=== PATIENT | female | born 1940 | race Caucasian/White ===

== ENCOUNTER 2019-03-22 16:09 | Emergency (ER) | payer MEDICARE, SELFPAY ==
--- NOTE | ~2019-03-22 | XR_ITS ---
EXAMINATION: XR chest 2V DATE: 03/22/2019 18:12 INDICATION: Chest pain and pressure TECHNIQUE: PA and lateral views of the chest are obtained. COMPARISON: 03/02/2018 FINDINGS: The lungs are free of acute opacities. There is no pleural effusion or pneumothorax. The ca rdiomediastinal silhouette is normal. There is severe thoracic spondylosis. IMPRESSION: 1. No acute cardiopulmonary abnormality. Reviewed, dictated and finalized at location A. ING OPERATOR
[2019-03-22 17:27] VITALS: BP 136/96; PULSE 70; RESP 16; TEMP 37.1; O2SAT 98
--- NOTE | 2019-03-22 17:30 | ECG_ITS ---
Measurements Intervals [place] Rate: 65 P: 47 UT: 147 QRS: -32 QRSD: 101 T: 46 QT: 397 QTc: 414 Interpretive Statements SINUS RHYTHM LEFT AXIS DEVIATION INCOMPLETE RIGHT BUNDLE BRANCH BLOCK BORDERLINE R WAVE PROGRESSION, ANTERIOR LEADS BASELINE ARTIFACT- I, II, AVR, AVL, AVF, V1-V3 BORDERLINE ECG Electronically Signed On 03-22-2019 20:06:58 EDITOR SOUND by Aubrey Rueda D.O.
[2019-03-22 17:39] LABS: Basophils Absolute Auto 0.1 K/mm3 (0.0-0.1); Basophils Percent Auto 0.9 % (0.2-1.2); Eosinophils Absolute Auto 0.1 K/mm3 (0-0.3); Eosinophils Percent Auto 2.4 % (0-4.4); Hematocrit 37.8 % (37.0-47.0); Hemoglobin 12.4 g/dL (12.0-15.0); Immature Granulocyte Absolute 0.02 K/mm3 (0.00-0.031); Immature Granulocyte Percent A 0.4 % (0-0.5); Lymphocytes Absolute Auto 1.61 K/mm3 (0.9-3.2); Lymphocytes Percent Auto 29.3 % (18.3-44.2); Mean Corpuscular HGB Conc 32.8 g/dl (32-36); Mean Corpuscular Hemoglobin 30.4 pg (26-34); Mean Corpuscular Volume 92.6 fl (80-100); Mean Platelet Volume 9.8 fl (7.4-10.4); Monocytes Absolute Auto 0.6 K/mm3 (0.1-0.6); Neutrophils Absolute Auto 3.1 K/mm3 (1.3-6.7); Platelet Count Result 249 k/mm3 (150-375); Red Blood Count 4.08 M/mm3 (4.2-5.4); Red Cell Distribution Width 12.5 % (11.5-14.5); White Blood Count 5.5 K/mm3 (4.5-10.0)
[2019-03-22 17:49] LABS: INR 0.9
[2019-03-22 17:52] LABS: Blood Urea Nitrogen 19 mg/dL (7-17); Calcium 9.2 mg/dL (8.4-10.2); Carbon Dioxide 30 mmol/L (22-30); Chloride 101 mmol/L (98-107); Estimated CRCL calculation 51 ml/min; Estimated Glomerular Filt Rate > 60; Glucose 88 mg/dL (65-105); Sodium 139 mmol/L (137-145)
[2019-03-22 18:04] LABS: Troponin I < 0.012 ng/mL (0.000-0.034)
[2019-03-22 20:00] VITALS: BP 157/70; PULSE 65; RESP 18; O2SAT 97
--- NOTE | 2019-03-22 20:33 | ED.CHESTPAIN ---
HPI - Chest Pain General Chief Complaint: Chest Pain Stated Complaint: sent from urgent care, chest discomfort Time Seen by Provider: 03/22/19 20:33 Source: patient Mode of arrival: ambulatory Limitations: no limitations History of Present Illness HPI narrative: The pt is a 78 y/o female who presents to the ED c/o intermittent diffuse chest discomfort onset one week ago. Pt states that the discomfort feels like a pressure that radiates to the back. Pt visited urgent care, and was recommended here. Pt reports intermittent SOB, but denies N/V and diaphoresis. She states that her discomfort is resolved currently. Pt states that the pain does not seem to worsen or improve with anything. The pt notes that she cannot recall receiving a cardiology work up. Pt states that her PCP is Dr. Lyndsey ARRINGTON complaint: chest discomfort Onset (ago): week(s) (1) Timing of current episode: episodic and now resolved Pain location: other (Diffuse) Pain radiation: back Quality: other (Pressure) Relieving factors: nothing Exacerbating factors: nothing Associated symptoms: dyspnea (Intermittent) Related Data Allergies Allergy/AdvReac Type Severity Reaction Status Date / Time No Known Allergies Allergy Verified 06/16/18 09:30 Review of Systems Review of Systems: All systems reviewed & are unremarkable except as noted in HPI and below Constitutional: Constitutional: Denies excessive sweating Cardiovascular: Cardiovascular: Reports other (Chest discomfort, intermittent, pressure, radiates to back, now resolved.) Respiratory: Respiratory: Reports dyspnea (Intermittent) Gastrointestinal: Gastrointestinal: Denies nausea and Denies vomiting PMFSH Past Medical History Medical History (Updated 03/22/19 @ 21:01 by John Garay MD) Abnormal uterine bleeding Bilateral cataracts Chronic shortness of breath Claustrophobia Depression GERD (gastroesophageal reflux disease) UTI (urinary tract infection) Surgical History Surgical History (Updated 03/22/19 @ 20:48 by Preston Byrne) H/O bilateral cataract extraction H/O tubal ligation History of appendectomy Family History Family History (Updated 02/14/18 @ 10:59 by DOCTOR UNKNOWN) Mother Family history of Alzheimer's disease Father Family history of coronary artery disease Social History Social History (Updated 03/22/19 @ 20:48 by Preston Byrne) Smoking status: Former smoker Alcohol intake: current Comments PCP: Dr. Solorio Exam Narrative: Exam Narrative: GENERAL: Well-appearing, well-nourished, and in no acute distress. HEAD: Normocephalic, atraumatic. EYES: PERRLA and EOMI. ENT: Nares clear, no rhinorrhea or epistaxis. Mucous membranes moist. NECK: Supple. CHEST: Clear to auscultation. No respiratory distress. HEART: Regular rate and rhythm. No murmur heard. Normal peripheral pulses. ABDOMEN: Soft, nontender, nondistended, normal active bowel sounds. EXTREMITIES: Normal range of motion. No edema. SKIN: Warm, dry, no rash. NEURO: No focal deficits. Alert and oriented x3. PSYCH: Normal mood and affect. Course Course Emergency Course: Patient remains asymptomatic in the ER. However I discussed labs and chest x-ray EKG findings with the patient as well as with Dr. Solorio. Patient can be discharged home follow-up in the office for outpatient stress test. Patient does feel comfortable going home. Consultations Consultation #1: Discussed case with Dr. Solorio, who states pt can be discharged and follow up to schedule an outpatient stress test. Date: 03/22/19 Time: 20:53 Vital Signs Vital signs: Vital Signs Temperature 37.1 C 03/22/19 17:27 Pulse Rate 70 03/22/19 17:27 Respiratory Rate 16 03/22/19 17:27 Blood Pressure 136/96 H 03/22/19 17:27 Pulse Oximetry 98 03/22/19 17:27 Temperature 37.1 C 03/22/19 17:27 Pulse Rate 65 03/22/19 20:00 Respiratory Rate 18 03/22/19 20:00 Blood Pressure 157/70 H 03/22/19 20:00 Pulse Oxi
[2019-03-22 20:48] LABS: Troponin I < 0.012 ng/mL (0.000-0.034)
[2019-03-22 21:17] VITALS: BP 128/72; PULSE 66; RESP 19; TEMP 36.5; O2SAT 99
== END 2019-03-22 21:20 | disposition home or self-care (01) ==
PROVIDERS: Emergency Medicine; Emergency Provider Family Medicine; PCP Internal Medicine
DX: R07.89 Other chest pain (principal); K21.9 Gastro-esophageal reflux disease without esophagitis; Z87.440 Personal history of urinary (tract) infections; Z98.42 Cataract extraction status, left eye; Z98.41 Cataract extraction status, right eye; I45.10 Unspecified right bundle-branch block; R94.31 Abnormal electrocardiogram [ECG] [EKG]; Z87.891 Personal history of nicotine dependence
CPT/HCPCS: 36415; 71046; 80048; 84484; 85025; 85610; 85730; 93005; 99284

== ENCOUNTER 2019-04-04 10:14 | Outpatient (CLI) | payer MEDICARE, SELFPAY ==
--- NOTE | 2019-04-04 10:52 | EST_ITS ---
Patient Info Name: Deirdre Caruso Age: 78 years : 1940 Gender: Female Ht: 62 in Wt: 150 lbs BSA: 1.74 m2 HR: 65 bpm BP: 132 / 76 mmHg Technical Quality: Good Exam Date: 04/04/2019 11:28 AM Exam Location: [facility] Patient Status: Outpatient Admit Date: 04/04/2019 Staff Ordering Physician: Belkys Galvan NP Quality Compliance Manager: Seema Amaya RDCS Attending Provider: Belkys Galvan NP Referring Physician: Cole HENLEY; Exercise Technologist: Christiana Man RDCS Exercise Physician: Aubrey Rueda DO Exam Type: CA stress echo Study Info Indications R07.89 - Other chest pain Treadmill exercise stress echocardiogram is performed. Summary 1. 1. Negative Jamison exercise stress test for ischemic ST changes by ECG criteria. 2. 2. Good functional capacity, achieving 10 METs of workload. 3. 3. Appropriate HR response to exercise. 4. 4. Appropriate HR recovery at 1 minute post exercise. 5. 5. Negative stress echocardiogram for ischemia by wall motion analysis. 6. 6. Patient informed of the above results. Stress Echo Findings Left Ventricle Appropriate increase in LV endocardial thickening with systole. Appropriate augmentation of contractility with systole. No wall motion abnormality. Left Ventricle Normal LV systolic function, no wall motion abnormality. Protocol: Jamison Stress ECG Details Stage: REST Duration (min): 0 min : 50 sec Speed (mph): 0.0 Grade (%): 0 HR (bpm): 66 SBP (mmHg): 132 DBP (mmHg): 76 METS: --- Stage: REST Duration (min): 22 min : 44 sec Speed (mph): 0.0 Grade (%): 0 HR (bpm): 69 SBP (mmHg): 132 DBP (mmHg): 76 METS: --- Stage: STAGE 1 Duration (min): 1 min : 0 sec Speed (mph): 1.7 Grade (%): 10 HR (bpm): 99 SBP (mmHg): 132 DBP (mmHg): 76 METS: --- Stage: STAGE 1 Duration (min): 2 min : 0 sec Speed (mph): 1.7 Grade (%): 10 HR (bpm): 96 SBP (mmHg): 132 DBP (mmHg): 76 METS: --- Stage: STAGE 1 Duration (min): 3 min : 0 sec Speed (mph): 1.7 Grade (%): 10 HR (bpm): 99 SBP (mmHg): 142 DBP (mmHg): 57 METS: --- Stage: STAGE 2 Duration (min): 1 min : 0 sec Speed (mph): 2.5 Grade (%): 12 HR (bpm): 103 SBP (mmHg): 142 DBP (mmHg): 57 METS: --- Stage: STAGE 2 Duration (min): 2 min : 0 sec Speed (mph): 2.5 Grade (%): 12 HR (bpm): 106 SBP (mmHg): 147 DBP (mmHg): 61 METS: --- Stage: STAGE 2 Duration (min): 3 min : 0 sec Speed (mph): 2.5 Grade (%): 12 HR (bpm): 104 SBP (mmHg): 147 DBP (mmHg): 61 METS: --- Stage: STAGE 3 Duration (min): 1 min : 0 sec Speed (mph): 3.4 Grade (%): 14 HR (bpm): 114 SBP (mmHg): 145 DBP (mmHg): 65 METS: --- Stage: STAGE 3 Duration (min): 2 min : 0 sec Speed (mph): 3.4 Grade (%): 14 HR (bpm): 119 SBP (mmHg): 145 DBP (mmHg): 65 METS: --- Stage: STAGE 3 Duration
== END 2019-04-04 10:15 | disposition home or self-care (01) ==
PROVIDERS: PCP Internal Medicine; Visit Provider Nurse Practitioner
DX: R07.9 Chest pain, unspecified (principal)
CPT/HCPCS: 93351

== ENCOUNTER → 2021-05-16 17:59 | Outpatient (CLI) | payer MEDICARE, SELFPAY ==
--- NOTE | ~2021-05-16 | DEXA_ITS ---
Bone Density Report Name: FABRICE HOYT Age: 80 Sex: Female Ethnicity: White Date of : 1940 Indication: postmenopausal; screening for osteoporosis; height loss; Referring Provider: Belkys Galvan Study: Bone densitometry was performed. Exam Date: May 16, 2021 Accession number: [id number] Bone Density: Region BMD T-score Z-score Classification AP Spine (L1, L2) 1.098 1.1 3.6 Normal Femoral Neck (Left) 0.991 1.3 3.6 Normal Total Hip (Left) 1.256 2.6 4.7 Normal Femoral Neck (Right) 1.000 1.4 3.7 Normal Total Hip (Right) 1.248 2.5 4.6 Normal Total Hip Mean 1.252 2.6 4.7 Normal World Health Organization criteria for BMD impression classify patients as: Normal (T-score at or above -1.0), Osteopenia (T-score between -1.0 and -2.5), or Osteoporosis (T-score at or below -2.5). 10-year Fracture Risk: FRAX not reported because: All T-scores for Spine Total, Hip Total, Femoral Neck at or above -1.0 Previous Exams: Region Exam Age BMD T-score BMD Change BMD Change Date g/cm2 vs Baseline vs Previous AP Spine(L1, L2) 05/16/2021 80 1.098 1.1 -0.064* -0.100* 02/06/2015 74 1.198 2.0 0.036* -0.054* 04/29/2011 70 1.252 2.5 0.090* 0.049* 03/28/2008 67 1.203 2.0 0.041* 0.041* 01/15/2005 64 1.162 1.7 Total Hip(Left) 05/16/2021 80 1.256 2.6 -0.094* -0.011 02/06/2015 74 1.267 2.7 -0.084* 0.020 04/29/2011 70 1.246 2.5 -0.104* -0.006 03/28/2008 67 1.253 2.5 -0.098* -0.098* 01/15/2005 64 1.350 3.3 Total Hip(Right) 05/16/2021 80 1.248 2.5 -0.086* 0.029* 02/06/2015 74 1.219 2.3 -0.115* -0.040* 04/29/2011 70 1.259 2.6 -0.075* 0.015 03/28/2008 67 1.244 2.5 -0.090* -0.090* 01/15/2005 64 1.334 3.2 *Denotes significance at 95% confidence level, LSC for AP Spine = 0.022 g/cm2, LSC for Total Hip = 0.027 g/cm2 Clinical Information Provided by Patient: Has used the following medications: Vitamin D, Calcium Patient maximum height was 64 Menopause Age: 45 Drinks caffeinated beverages Onset of menses at age 9 Number of children 2 Impression: The patient has normal bone mass. The BMD for the AP Spine(L1, L2) decreased, changing by -0.100 since the last DXA exam. Di
== END ==
PROVIDERS: Visit Provider Nurse Practitioner
DX: Z78.0 Asymptomatic menopausal state (principal)
CPT/HCPCS: 77080

== ENCOUNTER 2021-05-30 13:07 | Emergency (ER) | payer MEDICARE, SELFPAY ==
[2021-05-30] VITALS (10 sets, daily range): BP systolic 127–173; BP diastolic 79–101; PULSE 58–79; RESP 13–18; TEMP 37; O2SAT 96–100
[2021-05-30 14:44] LABS: Hematocrit 36.6 % (37.0-47.0); Mean Corpuscular HGB Conc 32.8 g/dl (32-36); Mean Corpuscular Hemoglobin 30.2 pg (26-34); Mean Corpuscular Volume 92.2 fl (80-100); Mean Platelet Volume 9.8 fl (7.4-10.4); Platelet Count Result 201 k/mm3 (150-375); Red Blood Count 3.97 M/mm3 (4.2-5.4); Red Cell Distribution Width 12.8 % (11.5-14.5)
[2021-05-30] MEDS: SODIUM CHLORIDE 0.9% IV 1,000 ML 999 ML IV CONT (14:52)
[2021-05-30 14:54] LABS: Anion Gap 6 mmol/L (8-16); Blood Urea Nitrogen 17 mg/dL (7-17); Calcium 8.8 mg/dL (8.4-10.2); Carbon Dioxide 27 mmol/L (22-30); Chloride 105 mmol/L (98-107); Estimated CRCL calculation 44 ml/min; Estimated Glomerular Filt Rate > 60; Glucose 84 mg/dL (65-110); Potassium 3.5 mmol/L (3.4-5.0); Sodium 138 mmol/L (137-145)
[2021-05-30 14:56] LABS: INR 1.1; Prothrombin Time 13.6 Seconds (11.1-14.7)
[2021-05-30 14:57] LABS: Partial Thromboplastin Time 28.5 SECONDS (22.3-36.8)
[2021-05-30 15:15] LABS: Add Urine Microscopic? YES; Appearance Urine Cloudy (Clear); Bacteria Urine Trace /hpf; Bilirubin Urine Negative (Negative); Color Urine Amber (Yellow); Glucose Urine UA Negative (Negative); Ketones Urine Trace mg/dL (Negative); Leukocyte Esterase Ur 3+ LEU/UL (Negative); Mucus Urine Rare /lpf; Nitrate Urine Negative (Negative); Protein Urine 1+ mg/dL (Negative); Squamous Epithelial Cell Urine Occasional /hpf (Few); Urobilinogen Urine Negative mg/dL (<2.0); WBC Clumps Urine Present /HPF; WBC Urine >75 /hpf
[2021-05-30 15:16] LABS: Blood Urine Negative (Negative)
--- NOTE | 2021-05-30 16:50 | ED.DIZZY ---
HPI - Dizziness General Chief Complaint: Dizziness Stated Complaint: dizzy, weak, syncopal episode Time Seen by Provider: 05/30/21 14:06 History of Present Illness HPI Narrative: Patient is an 80-year-old female who presents to the ER with concerns for weakness. Patient was sent from her PCPs office. Patient came in after she told her daughter that 1 week ago she had gotten out of bed and gotten very dizzy when going from sitting to standing. Things blacked out and she fell to the ground. She remembers hitting the ground and did not hit her head. No loss of consciousness. She tried to get up again and became recurrently lightheaded and stayed on the ground. She was then diagnosed with a UTI and started Macrobid. She has finished the medication. No fevers or chills or sweats. No urinary frequency urgency or dysuria. She reports chronic diarrhea for 6 months. She thinks 1 week ago she also had some blood in her stool but that is since improved. No abdominal pain. Related Data Home Medications Medication Instructions Recorded Confirmed ascorbate calcium (vitamin C) 500 500 mg PO DAILY 11/17/19 04/25/21 mg tablet cholecalciferol (vitamin D3) 25 25 mcg PO DAILY 11/17/19 04/25/21 mcg (1,000 unit) capsule mecobalamin (vitamin B12) 1,000 1,000 mcg PO DAILY 11/17/19 04/25/21 mcg chewable tablet donepezil 10 mg tablet 10 mg PO QHS 10/02/20 04/25/21 Allergies Allergy/AdvReac Type Severity Reaction Status Date / Time No Known Allergies Allergy Verified 05/30/21 14:54 Review of Systems Review of Systems: All systems reviewed & are unremarkable except as noted in HPI and below Constitutional: Constitutional: Denies chills, Denies fever(s) and Denies weakness ENT: Denies nasal congestion and Denies sore throat Cardiovascular: Cardiovascular: Denies chest pain, Denies rapid heart rate and Denies radiating jaw, neck or arm pain Respiratory: Respiratory: Denies cough and Denies dyspnea Gastrointestinal: Gastrointestinal: Denies abdominal pain, Reports diarrhea, Denies nausea and Denies vomiting Genitourinary: Genitourinary: Denies nocturia and Denies dysuria Neurologic: Reports syncope (Near syncope), Denies headache(s) and Denies numbness PMFSH Past Medical History Medical History Abnormal uterine bleeding Bilateral cataracts Chronic shortness of breath Claustrophobia Colon adenoma Depression Elevated blood pressure reading GERD (gastroesophageal reflux disease) Memory deficit Proteinuria Tuberculosis UTI (urinary tract infection) Surgical History Surgical History H/O bilateral cataract extraction H/O tubal ligation History of appendectomy Family History Family History Mother Family history of Alzheimer's disease Father Family history of coronary artery disease Social History Social History Smoking status: Never smoker Alcohol intake: current Drinks per week: 7 Alcohol use details: 1 glass of wine every night Exam Narrative: GENERAL: Well-appearing, well-nourished, and in no acute distress. HEAD: Normocephalic, atraumatic. EYES: PERRL and EOMI. CHEST: Clear to auscultation. No respiratory distress. HEART: Regular rate and rhythm. Normal peripheral pulses. ABDOMEN: Soft, nontender, nondistended. EXTREMITIES: Normal range of motion. No edema. SKIN: Warm, dry, no rash. NEURO: Alert and oriented x3. PSYCH: Normal mood and affect. Course Course Emergency Course: Patient family informed of results. Hydrated for orthostasis. IV ceftriaxone ordered as well. Vital Signs Vital signs: Vital Signs Temperature 98.6 F 05/30/21 13:11 Pulse Rate 69 05/30/21 13:11 Respiratory Rate 16 05/30/21 13:11 Blood Pressure 128/101 H 05/30/21 13:11 Pulse Oxim
== END 2021-05-30 17:09 | disposition home or self-care (01) ==
PROVIDERS: Emergency Provider Emergency Medicine; PCP Internal Medicine
DX: N39.0 Urinary tract infection, site not specified (principal); E86.0 Dehydration; K21.9 Gastro-esophageal reflux disease without esophagitis; F32.A Depression, unspecified; Z98.42 Cataract extraction status, left eye; Z98.41 Cataract extraction status, right eye; R55 Syncope and collapse
CPT/HCPCS: 36415; 80048; 81001; 85025; 85610; 85730; 87077; 87086; 87088; 87186; 96361; 96374; 99284; J0696; J7030

== ENCOUNTER 2021-07-22 10:56 | Outpatient (CLI) | payer MEDICARE, SELFPAY ==
[2021-07-22 11:26] LABS: Hematocrit 40.7 % (37.0-47.0); Hemoglobin 14.1 g/dL (12.0-15.0); Mean Corpuscular HGB Conc 34.6 g/dl (32-36); Mean Corpuscular Hemoglobin 32.6 pg (26-34); Mean Platelet Volume 9.7 fl (7.4-10.4); Platelet Count Result 228 k/mm3 (150-375); Red Blood Count 4.33 M/mm3 (4.2-5.4); Red Cell Distribution Width 12.9 % (11.5-14.5); White Blood Count 4.8 K/mm3 (4.5-10.0)
[2021-07-22 11:42] LABS: Alanine Aminotransferase 17 U/L (6-35); Albumin Level 4.3 g/dL (3.5-5.1); Alkaline Phosphatase 92 U/L (38-126); Anion Gap 3 mmol/L (8-16); Aspartate Amino Transferase 30 U/L (14-36); Bilirubin,Total 1.4 mg/dL (0.2-1.3); Blood Urea Nitrogen 21 mg/dL (7-17); Calcium 8.9 mg/dL (8.4-10.2); Carbon Dioxide 32 mmol/L (22-30); Chloride 105 mmol/L (98-107); Estimated Glomerular Filt Rate > 60; Glucose 96 mg/dL (65-110); Potassium 4.1 mmol/L (3.4-5.0); Sodium 140 mmol/L (137-145)
[2021-08-21 16:17] LABS: Gliadin AB, IgG <1.0 U/mL (<15.0); TTG IGA AB <1.0 U/mL (<15.0)
== END 2021-07-22 10:57 | disposition home or self-care (01) ==
PROVIDERS: PCP Internal Medicine; Visit Provider Nurse Practitioner
DX: R19.4 Change in bowel habit (principal); R63.0 Anorexia; K52.9 Noninfective gastroenteritis and colitis, unspecified; R63.4 Abnormal weight loss
CPT/HCPCS: 36415; 80053; 83516; 84443; 85027; 86255

== ENCOUNTER 2021-07-29 06:49 | Outpatient (CLI) | payer MEDICARE, SELFPAY ==
--- NOTE | ~2021-07-29 | CT_ITS ---
EXAMINATION: CT chest abdomen pelvis wo con DATE: 07/29/2021 07:12 INDICATION: Unintentional weight loss TECHNIQUE: Transaxial computed tomographic images of the chest, abdomen, and pelvis were obtained wit hout intravenous contrast. The dose-length product (DLP) was 390.00 mGy-cm. Automated exposure contro l and iterative reconstruction technique were employed. COMPARISON: None FINDINGS: CHEST CT: There is mild dependent atelectasis. Minimal bronchiectasis is noted in the lower lobes. The lungs ar e free of focal airspace opacities. No pleural effusion or pneumothorax. The heart size is normal. Th ere are no pathologically enlarged thoracic lymph nodes. There is a moderate-sized pericardial effusi on. Calcified coronary artery atherosclerosis is noted. There is severe mid thoracic spondylosis. ABDOMEN/PELVIS CT: Within the limitations of noncontrast examination, the liver, spleen, pancreas, gallbladder, and righ t adrenal gland are normal. There is an approximately 1.5 cm low-density mass of the left adrenal gla nd, consistent with an adenoma. There is a 3.5 cm cyst of the left kidney. Nonobstructing stones of t he right kidney measure up to 4 mm. There is a 2 mm stone in the urinary bladder. A moderate volume o f colonic stool is present. There is severe lumbar spondylosis. IMPRESSION: 1. No CT correlate for unintentional weight loss within the limitations of noncontrast examination. 2. Moderate-sized pericardial effusion. 3. 2 mm stone in the urinary bladder. 4. Nonobstructing right nephrolithiasis. Reviewed, dictated and finalized at location A. IMPRESSION: 1. No CT correlate for unintentional weight loss within the limitations of nonc ontrast examination. 2. Moderate-sized pericardial effusion. 3. 2 mm stone in the urinary bladder. 4. Nonobstructing right nephrolithiasis.
== END 2021-07-29 06:50 | disposition home or self-care (01) ==
LOC: ANHIMG 06:56
PROVIDERS: PCP Internal Medicine; Visit Provider Nurse Practitioner
DX: R63.4 Abnormal weight loss (principal); R63.0 Anorexia; K52.9 Noninfective gastroenteritis and colitis, unspecified; R19.4 Change in bowel habit; I31.3 Pericardial effusion (noninflammatory); N20.0 Calculus of kidney
CPT/HCPCS: 71250; 74176

== ENCOUNTER 2021-08-05 11:39 | Outpatient (CLI) | payer MEDICARE, SELFPAY ==
[2021-08-12 22:34] LABS: Calprotectin, Stool 45 mcg/g
== END 2021-08-05 11:40 | disposition home or self-care (01) ==
LOC: ANHLAB 11:40
PROVIDERS: PCP Internal Medicine; Visit Provider Nurse Practitioner
DX: R19.4 Change in bowel habit (principal); R63.0 Anorexia; K52.9 Noninfective gastroenteritis and colitis, unspecified; R63.4 Abnormal weight loss
CPT/HCPCS: 83993

== ENCOUNTER → 2021-08-07 10:57 | Outpatient (CLI) | payer MEDICARE, SELFPAY ==
--- NOTE | ~2021-08-07 | XR_ITS ---
XR chest 2V 08/07/2021 12:01 Indication: Abnormal weight loss Procedure: 2 view chest Comparison: Comparison to multiple prior studies sequentially, with oldest reviewed study dated 01/08. Findings: Borderline heart size. No focal air space disease, pulmonary edema, pleural effusion or antelmo pected pneumothorax. No acute osseous abnormality. Impression: 1: No acute cardiopulmonary disease. Reviewed, dictated and finalized at location A. Impression: 1: No acute cardiopulmonary disease.
== END ==
PROVIDERS: PCP Internal Medicine; Visit Provider Internal Medicine
DX: R63.4 Abnormal weight loss (principal)
CPT/HCPCS: 71046

== ENCOUNTER 2021-08-26 09:34 | Outpatient (CLI) | payer MEDICARE, SELFPAY ==
--- NOTE | 2021-08-26 09:47 | ECHO_ITS ---
Patient Info Name: Deirdre Caruso Age: 80 years : 1940 Gender: Female Ht: 62 in Wt: 120 lbs BSA: 1.55 m2 HR: 58 bpm BP: 137 / 84 mmHg Technical Quality: Good Exam Date: 08/26/2021 10:13 AM Exam Location: [facility] Patient Status: Outpatient Admit Date: 08/26/2021 Staff Ordering Physician: Nic Solorio DO Assembler Semiconductor: Christiana Man RDCS Attending Provider: Nic Solorio DO Referring Physician: Lyndsey OBRIEN; Exam Type: CA echo doppler color flow Study Info Indications I31.3 - Pericardial effusion (noninflammatory) Complete two-dimensional, color flow and Doppler transthoracic echocardiogram is performed. Summary 1. Complete two-dimensional, color flow and Doppler transthoracic echocardiogram is performed. 2. Left ventricular chamber dimension is normal. 3. Left ventricular systolic function is normal, estimated at 60-65%. 4. There is mildly increased left ventricular wall thickness. 5. The left ventricular diastolic function is grade I diastolic dysfunction. 6. E/e' 10 is mildly elevated. 7. Left atrial chamber dimension is moderately enlarged. 8. There is moderate aortic valve sclerosis. 9. There is mild aortic valve stenosis with a peak velocity of 179 cm/s, mean gradient of 8 mmHg, and aortic valve area of 1.7 cm2. 10. The mitral valve has mildly calcified annulus. 11. There is small to moderate circumferential pericardial effusion with greatest amount in right sided at 2.2 cm. Left Ventricle E/e' 10 is mildly elevated. Left ventricular chamber dimension is normal. Left ventricular systolic function is normal, estimated at 60-65%. There is mildly increased left ventricular wall thickness. The left ventricular diastolic function is grade I diastolic dysfunction. Right Ventricle Right ventricular chamber dimension is normal. Right ventricular systolic function is normal. Left Atria Left atrial chamber dimension is moderately enlarged. Right Atria Right atrial chamber dimension is normal. Aortic Valve The aortic valve is trileaflet. There is moderate aortic valve sclerosis. There is mild aortic valve stenosis with a peak velocity of 179 cm/s, mean gradient of 8 mmHg, and aortic valve area of 1.7 cm2. There is no aortic valve regurgitation. Pulmonic Valve There is no pulmonic regurgitation. Mitral Valve The mitral valve has mildly calcified annulus. There is no mitral valve stenosis. There is no mitral valve regurgitation. Tricuspid Valve There is no tricuspid valve regurgitation. Pericardium/Pleural There is small to moderate circumferential pericardial effusion with greatest amount in right sided at 2.2 cm. No cardiac tamponade. Inferior Vena Cava Normal inferior vena cava with >50% collapse upon inspiration consistent with normal right atrial pressure, 5 mmHg. Aorta The aortic root size at the sinus of Valsalva is normal. Left Ventricular Outflow Tract Name Value Normal LVOT 2D LVOT Diameter 1.9 cm LVOT Doppler LVOT Peak Gradient 5 mmHg LVOT Mean Gradient 3 mmHg LVOT VTI
== END 2021-08-26 09:35 | disposition home or self-care (01) ==
LOC: ANHCARD 09:35
PROVIDERS: PCP Internal Medicine; Visit Provider Internal Medicine
DX: I31.3 Pericardial effusion (noninflammatory) (principal); I34.0 Nonrheumatic mitral (valve) insufficiency; I35.1 Nonrheumatic aortic (valve) insufficiency
CPT/HCPCS: 93306

== ENCOUNTER 2021-11-21 09:36 | Outpatient (CLI) | payer MEDICARE, SELFPAY ==
--- NOTE | 2021-11-21 09:59 | ECHO_ITS ---
Patient Info Name: Deirdre Caruso Age: 81 years : 1940 Gender: Female Ht: 62 in Wt: 120 lbs BSA: 1.55 m2 HR: 60 bpm BP: 158 / 87 mmHg Technical Quality: Good Exam Date: 11/21/2021 10:24 AM Exam Location: [facility] Patient Status: Outpatient Admit Date: 11/21/2021 Staff Ordering Physician: Aubrey Rueda DO Pharmaceutical Worker: Preston Up RDCS, RT Attending Provider: Aubrey Rueda DO Referring Physician: Mohit WELLS; Exam Type: CA echo doppler color flow Study Info Indications I50.9 - Heart failure, unspecified Complete two-dimensional, color flow and Doppler transthoracic echocardiogram is performed. Strain analysis performed. Summary 1. Complete two-dimensional, color flow and Doppler transthoracic echocardiogram is performed. 2. Left ventricular chamber dimension is mildly enlarged. 3. Left ventricular systolic function is normal, estimated at 60-65%. 4. The left ventricular diastolic function is grade I diastolic dysfunction. 5. E/e' 10 is mildly elevated. 6. There is mild aortic valve sclerosis. 7. There is mild aortic valve stenosis with a peak velocity of 186 cm/s, mean gradient of 7 mmHg, and aortic valve area of 1.7 cm2. 8. There is mild tricuspid valve regurgitation. 9. No pulmonary hypertension, estimated pulmonary arterial systolic pressure is 38 mmHg. 10. Dilated inferior vena cava with >50% collapse upon inspiration consistent with elevated right atrial pressure, 10 mmHg. 11. There is small-moderate circumferential pericardial effusion, with moderate being on right side measuring up to 1.6 cm. No cardiac tamponade. Left Ventricle E/e' 10 is mildly elevated. Global longitudinal strain is normal at -18.5%. Left ventricular chamber dimension is mildly enlarged. Left ventricular systolic function is normal, estimated at 60-65%. The left ventricular diastolic function is grade I diastolic dysfunction. Right Ventricle Right ventricular systolic function is normal and with normal TAPSE 1.8 cm. Right ventricular chamber dimension is normal. Left Atria Left atrial chamber dimension is normal. Right Atria Right atrial chamber dimension is normal. Aortic Valve The aortic valve is trileaflet. There is mild aortic valve sclerosis. There is mild aortic valve stenosis with a peak velocity of 186 cm/s, mean gradient of 7 mmHg, and aortic valve area of 1.7 cm2. There is no aortic valve regurgitation. Pulmonic Valve There is no pulmonic regurgitation. Mitral Valve There is no mitral valve stenosis. There is no mitral valve regurgitation. Tricuspid Valve There is mild tricuspid valve regurgitation. No pulmonary hypertension, estimated pulmonary arterial systolic pressure is 38 mmHg. Pericardium/Pleural There is small-moderate circumferential pericardial effusion, with moderate being on right side measuring up to 1.6 cm. No cardiac tamponade. Inferior Vena Cava Dilated inferior vena cava with >50% collapse upon inspiration consistent with elevated right atrial pressure, 10 mmHg. Aorta The aortic root size at the sinus of Valsalva is normal. Left Ventricular Outflow Tract Name Value Normal LVOT 2D LVOT Diameter 2.0 cm LVOT Doppler ------
== END 2021-11-21 09:37 | disposition home or self-care (01) ==
LOC: ANHCARD 09:37
PROVIDERS: PCP Internal Medicine; Visit Provider Internal Medicine Cardiovascular Disease
DX: I31.39 Other pericardial effusion (noninflammatory) (principal); I36.1 Nonrheumatic tricuspid (valve) insufficiency; I35.1 Nonrheumatic aortic (valve) insufficiency
CPT/HCPCS: 93306

== ENCOUNTER 2022-10-27 14:21 | Outpatient (CLI) | payer MEDICARE, SELFPAY ==
[2022-10-27 16:33] LABS: Basophils Percent Auto 0.7 % (0.2-1.2); Eosinophils Absolute Auto 0.1 K/mm3 (0-0.3); Eosinophils Percent Auto 1.6 % (0-4.4); Hematocrit 37.3 % (37.0-47.0); Immature Granulocyte Absolute 0.01 K/mm3 (0.00-0.031); Immature Granulocyte Percent A 0.2 % (0-0.5); Lymphocytes Absolute Auto 1.39 K/mm3 (0.9-3.2); Lymphocytes Percent Auto 24.7 % (18.3-44.2); Mean Corpuscular HGB Conc 32.2 g/dl (32-36); Mean Corpuscular Hemoglobin 30.2 pg (26-34); Mean Platelet Volume 10.8 fl (7.4-10.4); Monocytes Absolute Auto 0.6 K/mm3 (0.1-0.6); Monocytes Percent Auto 10.1 % (2.6-8.5); Neutrophils Absolute Auto 3.5 K/mm3 (1.3-6.7); Neutrophils Percent Auto 62.7 % (45.5-73.1); Platelet Count Result 197 k/mm3 (150-375); Red Blood Count 3.97 M/mm3 (4.2-5.4); Red Cell Distribution Width 12.4 % (11.5-14.5); White Blood Count 5.6 K/mm3 (4.5-10.0)
[2022-10-27 16:51] LABS: Alanine Aminotransferase 18 U/L (6-35); Alkaline Phosphatase 90 U/L (38-126); Anion Gap 3 mmol/L (8-16); Aspartate Amino Transferase 39 U/L (14-36); Bilirubin,Total 1.6 mg/dL (0.2-1.3); Blood Urea Nitrogen 22 mg/dL (7-17); Calcium 9.1 mg/dL (8.4-10.2); Carbon Dioxide 31 mmol/L (22-30); Chloride 104 mmol/L (98-107); Estimated Glomerular Filt Rate > 60; Glucose 87 mg/dL (65-110); Potassium 3.7 mmol/L (3.4-5.0); Sodium 138 mmol/L (137-145)
[2022-10-27 17:59] LABS: Folic Acid 13.6 ng/mL (2.76->20)
[2022-10-28 11:47] LABS: Vitamin D 25 Hydroxy 69.4 ng/mL
== END 2022-10-27 14:22 | disposition home or self-care (01) ==
LOC: ANHGOSHLAB 14:25
PROVIDERS: PCP Internal Medicine; Visit Provider Internal Medicine
DX: E55.9 Vitamin D deficiency, unspecified (principal); F32.9 Major depressive disorder, single episode, unspecified; R41.3 Other amnesia; R63.0 Anorexia; R63.4 Abnormal weight loss
CPT/HCPCS: 36415; 80053; 82306; 82607; 82746; 84443; 85025

== ENCOUNTER 2023-05-13 12:42 | Outpatient (CLI) | payer MEDICARE, SELFPAY ==
--- NOTE | ~2023-05-13 | US_ITS ---
EXAMINATION: US venous doppler LE RT DATE: 05/13/2023 13:28 INDICATION: Right lower limb localized edema. TECHNIQUE: Grayscale ultrasound images without and with compression and Doppler ultrasound images of the right lower extremity veins were obtained. COMPARISON: None. FINDINGS: The visualized portions of right common femoral vein, profunda (deep) femoral vein, femoral vein, pop liteal vein, peroneal veins, posterior tibial veins, and greater saphenous vein outflow are patent. IMPRESSION: 1. No deep venous thrombosis. Reviewed, dictated and finalized at location A.
== END 2023-05-13 12:43 | disposition home or self-care (01) ==
LOC: ANHIMG 12:45
PROVIDERS: PCP Internal Medicine; Visit Provider Internal Medicine
DX: R60.0 Localized edema (principal)
CPT/HCPCS: 93971

== ENCOUNTER 2023-05-18 10:41 | Outpatient (CLI) | payer MEDICARE, SELFPAY ==
--- NOTE | 2023-05-18 11:04 | ECHO_ITS ---
Patient Info Name: Deirdre Caruso Age: 82 years : 1940 Gender: Female Ht: 62 in Wt: 118 lbs BSA: 1.53 m2 HR: 58 bpm BP: 146 / 81 mmHg Technical Quality: Fair Exam Date: 05/18/2023 11:14 AM Exam Location: Echo Lab Patient Status: Outpatient Admit Date: 05/18/2023 Staff Ordering Physician: Nic Solorio DO Education Liaison: April Torres RDCS Attending Provider: Nic Solorio DO Referring Physician: Lyndsey OBRIEN; Exam Type: CA echo doppler color flow Study Info Indications I35.0 - Nonrheumatic aortic (valve) stenosis Complete two-dimensional, color flow and Doppler transthoracic echocardiogram is performed. Summary 1. Complete two-dimensional, color flow and Doppler transthoracic echocardiogram is performed. 2. Left ventricular chamber dimension is normal. 3. Left ventricular systolic function is normal, estimated at 60-65%. 4. There is mild concentric increased left ventricular wall thickness. 5. The left ventricular diastolic function is grade I diastolic dysfunction. 6. E/e' 18 is elevated. 7. Right atrial chamber dimension is mildly enlarged. 8. There is moderate aortic valve sclerosis. 9. There is mild aortic valve stenosis with a peak velocity of 224 cm/s, mean gradient of 10 mmHg, and aortic valve area of 1.7 cm2. 10. The mitral valve has mildly calcified annulus. 11. There is moderate tricuspid valve regurgitation. 12. No pulmonary hypertension, estimated pulmonary arterial systolic pressure is 33 mmHg. 13. There is trace to small circumferential pericardial effusion. Left Ventricle E/e' 18 is elevated. Left ventricular chamber dimension is normal. Left ventricular systolic function is normal, estimated at 60-65%. There is mild concentric increased left ventricular wall thickness. The left ventricular diastolic function is grade I diastolic dysfunction. Right Ventricle Right ventricular systolic function is normal and with normal TAPSE 2.5 cm. Right ventricular chamber dimension is normal. Left Atria Left atrial chamber dimension is normal. Right Atria Right atrial chamber dimension is mildly enlarged. Aortic Valve The aortic valve is trileaflet. There is moderate aortic valve sclerosis. There is mild aortic valve stenosis with a peak velocity of 224 cm/s, mean gradient of 10 mmHg, and aortic valve area of 1.7 cm2. There is no aortic valve regurgitation. Pulmonic Valve There is no pulmonic regurgitation. Mitral Valve The mitral valve has mildly calcified annulus. There is no mitral valve stenosis. There is no mitral valve regurgitation. Tricuspid Valve There is moderate tricuspid valve regurgitation. No pulmonary hypertension, estimated pulmonary arterial systolic pressure is 33 mmHg. Pericardium/Pleural There is trace to small circumferential pericardial effusion. No cardiac tamponade. Inferior Vena Cava Normal inferior vena cava with >50% collapse upon inspiration consistent with normal right atrial pressure, 5 mmHg. Aorta The aortic root size at the sinus of Valsalva is normal. Left Ventricular Outflow Tract Name Value Normal LVOT 2D LVOT Diameter 2.0 cm LVOT Doppler LVOT Peak Gradient 4 mmHg LVOT Mean Gradient
== END 2023-05-18 10:42 | disposition home or self-care (01) ==
LOC: ANHCARD 10:42
PROVIDERS: PCP Internal Medicine; Visit Provider Internal Medicine
DX: I35.0 Nonrheumatic aortic (valve) stenosis (principal); R07.9 Chest pain, unspecified; I31.39 Other pericardial effusion (noninflammatory); I36.1 Nonrheumatic tricuspid (valve) insufficiency
CPT/HCPCS: 93306

== ENCOUNTER 2023-07-26 18:40 | Emergency (ER) | payer MEDICARE, SELFPAY ==
--- NOTE | ~2023-07-26 | XR_ITS ---
EXAMINATION: XR chest 1V portable Exam Date/Time: 07/26/2023 19:30 CDT HISTORY: altered mental status Comparison: 08/07/2021. RESULT: Lines, tubes, and devices: None. Lungs and pleura: Minimal streaky opacities in the left lower lung with minimal left costophrenic an gle blunting. Cardiomediastinal silhouette: Cardiomegaly. Calcified nodes. Other: No acute osseous or upper abdominal finding. IMPRESSION: Left basilar scar/atelectasis. Possible small left pleural effusion. Reviewed, dictated and finalized at location K.
--- NOTE | ~2023-07-26 | CT_ITS ---
EXAMINATION: CT brain wo con DATE: 07/26/2023 20:12 INDICATION: altered mental status . TECHNIQUE: Computed tomography (CT) of the head was performed without intravenous contrast. The mA wa s adjusted according to patient size. Iterative reconstruction technique was employed. The dose-lengt h product was 605.33 mGy-cm. COMPARISON: None. FINDINGS: No acute intracranial hemorrhage or extra-axial fluid collection. No hydrocephalus, mass, or herniation. No acute ischemic infarct. Unremarkable dural venous sinus attenuation. No acute osseous abnormality. The aerated spaces are clear. Moderate atrophy and chronic white matter change. Atherosclerotic intracranial calcification. Bilater al lens replacements. Old right basal ganglia lacunar infarct. IMPRESSION: No acute intracranial process. Reviewed, dictated and finalized at location K.
[2023-07-26 19:42] VITALS: BP 99/80; PULSE 67; RESP 16; TEMP 37.1; O2SAT 100
[2023-07-26 19:46] VITALS: BP 117/71; PULSE 73; PULSE 74; RESP 17; TEMP 37.1; O2SAT 100
[2023-07-26] MEDS: SODIUM CHLORIDE 0.9% IV 1,000 ML 999 ML IV CONT (19:51)
[2023-07-26 19:59] LABS: Basophils Percent Auto 0.3 % (0.2-1.2); Hematocrit 32.8 % (37.0-47.0); Immature Granulocyte Absolute 0.06 K/mm3 (0.00-0.031); Immature Granulocyte Percent A 0.6 % (0-0.5); Lymphocytes Absolute Auto 0.77 K/mm3 (0.9-3.2); Lymphocytes Percent Auto 7.5 % (18.3-44.2); Mean Corpuscular HGB Conc 33.5 g/dl (32-36); Mean Corpuscular Hemoglobin 30.1 pg (26-34); Mean Corpuscular Volume 89.6 fl (80-100); Mean Platelet Volume 9.5 fl (7.4-10.4); Monocytes Absolute Auto 1.3 K/mm3 (0.1-0.6); Monocytes Percent Auto 12.2 % (2.6-8.5); Neutrophils Absolute Auto 8.2 K/mm3 (1.3-6.7); Neutrophils Percent Auto 79.4 % (45.5-73.1); Platelet Count Result 318 k/mm3 (150-375); Red Blood Count 3.66 M/mm3 (4.2-5.4); Red Cell Distribution Width 12.3 % (11.5-14.5); White Blood Count 10.3 K/mm3 (4.5-10.0)
[2023-07-26 20:11] LABS: Alanine Aminotransferase 53 U/L (6-35); Albumin Level 3.5 g/dL (3.5-5.1); Alkaline Phosphatase 129 U/L (38-126); Anion Gap 7 mmol/L (4-12); Aspartate Amino Transferase 42 U/L (14-36); Bilirubin,Total 1.3 mg/dL (0.2-1.3); Blood Urea Nitrogen 22 mg/dL (7-17); Calcium 8.6 mg/dL (8.4-10.2); Carbon Dioxide 26 mmol/L (22-30); Chloride 102 mmol/L (98-107); Estimated CRCL calculation 32 ml/min; Estimated Glomerular Filt Rate 60; Glucose 117 mg/dL (65-110); INR 1.1; Potassium 3.7 mmol/L (3.4-5.0); Sodium 135 mmol/L (137-145)
[2023-07-26 20:12] LABS: Partial Thromboplastin Time 33.1 Seconds (22.3-36.8)
[2023-07-26 20:21] LABS: Troponin I < 0.012 ng/mL (0.000-0.034)
[2023-07-26 20:37] LABS: Lactic Acid Reflex 0.9 mmol/L (0.7-2.0)
[2023-07-26 20:39] LABS: Influenza A QL RT-PCR Negative (Negative); Influenza B QL RT-PCR Negative (Negative); RSV RNA, RT-PCR Negative (Negative); SARS-CoV-2 RNA PCR Negative (Negative)
[2023-07-26 20:42] LABS: Procalcitonin 0.3 ng/mL
[2023-07-26 20:54] LABS: Appearance Urine Turbid (Clear); Bacteria Urine 4+ /hpf; Bilirubin Urine Negative (Negative); Blood Urine 2+ (Negative); Color Urine Yellow (Yellow); Glucose Urine UA Negative (Negative); Ketones Urine Trace mg/dL (Negative); Leukocyte Esterase Ur 3+ LEU/UL (Negative); Need Manual Microscopic Reviewed; Nitrate Urine Negative (Negative); Protein Urine 2+ mg/dL (Negative); RBC Urine 0-2 /hpf (0-2); Specific Grav Ur 1.016 (1.001-1.035); Squamous Epithelial Cell Urine Occasional /hpf (Few); WBC Urine >100 /hpf (0-3); pH Urine 5.5 (5.0-9.0)
[2023-07-26 20:57] LABS: Add Urine Microscopic? YES
--- NOTE | 2023-07-26 21:09 | ED.GENADULT ---
HPI - General Adult General Chief complaint: Altered Mental Status Stated complaint: lethargic Time Seen by Provider: 07/26/23 19:08 History of Present Illness HPI narrative: patient 82-year-old female who presents emergency department with chief complaint of weakness and confusion. Per the patient's family over the last several days the patient has been having increased lethargy has been more confused than normal and has been unsteady when she is walking they have also noticed she has not been eating or drinking much. Patient does have history of some issues with cognitive decline. Family reports they were concerned that she may have a UTI as she has had this problem before with urinary tract infections. Related Data Home Medications Medication Instructions Recorded Confirmed cholecalciferol (vitamin D3) 25 25 mcg PO DAILY 11/17/19 05/04/23 mcg (1,000 unit) capsule vitamin B complex 1 tablet PO DAILY 10/27/22 05/04/23 vitamin E (dl, acetate) 90 mg (200 90 mg PO DAILY 10/27/22 05/04/23 unit) capsule galantamine 8 mg 24 hr 8 mg PO QAM 05/04/23 05/04/23 capsule,extended release Allergies Allergy/AdvReac Type Severity Reaction Status Date / Time No Known Allergies Allergy Verified 05/04/23 15:13 Review of Systems Review of Systems: A 10 system review of systems was completed on the patient and is negative except for what is stated in the HPI. Nursing and ancillary documentation was reviewed. [facility] Past Medical History Medical History Abnormal uterine bleeding Bilateral cataracts Chronic diarrhea Chronic shortness of breath Claustrophobia Colon adenoma Decreased appetite Depression Elevated blood pressure reading GERD (gastroesophageal reflux disease) Increased bowel frequency Major depressive disorder, recurrent Memory deficit Proteinuria Tuberculosis Unintentional weight loss UTI (urinary tract infection) Surgical History Surgical History H/O bilateral cataract extraction H/O tubal ligation History of appendectomy Family History Family History Mother Family history of Alzheimer's disease Father Family history of coronary artery disease Social History Social History Smoking status: Former smoker Alcohol intake: current Drinks per week: 7 Alcohol use details: 1 glass of wine every night Lack of Transportation: No Lack of Food: Never True Current Housing: I Have Housing Concerned About Future Housing: No Difficulty Paying Gas/Electric Bills: No Difficulty Paying for Meds: No Currently Unemployed: No Education: High School Diploma/GED Difficulty w/ Childcare or Family Care: No Exam Narrative: GENERAL: Well-appearing, well-nourished, and in no acute distress. HEAD: Normocephalic, atraumatic. EYES: PERRLA and EOMI. ENT: Nares clear, no rhinorrhea or epistaxis. Mucous membranes moist. NECK: Supple. CHEST: Clear to auscultation. No respiratory distress. HEART: Regular rate and rhythm. No murmur heard. Normal peripheral pulses. ABDOMEN: Soft, nontender, nondistended, normal active bowel sounds. EXTREMITIES: Normal range of motion. No edema. SKIN: Warm, dry, no rash. NEURO: No focal deficits. Alert and oriented x2 Somewhat confused of the month. PSYCH: Normal mood and affect. Course Vital Signs Vital signs: Vital Signs Temperature 37.1 C 07/26/23 19:42 Pulse Rate 67 07/26/23 19:42 Respiratory Rate 16 07/26/23 19:42 Blood Pressure 99/80 L 07/26/23 19:42 Pulse Oximetry 100 07/26/23 19:42 Oxygen Delivery Room Air 07/26/23 19:42 Temperature 37.1 C 07/26/23 19:46 Pulse Rate 61 07/26/23 22:17 Respiratory Rate 20 07/26/23 22:17 Blood Pressure 126/61 07/26/23 22
--- NOTE | 2023-07-26 21:12 | ECG_ITS ---
Test Date: 2023-07-26 21:16:52 Measurements Intervals [place] Rate: 57 P: 23 IA: 134 QRS: -40 QRSD: 99 T: 22 QT: 432 QTc: 423 Interpretive Statements SINUS BRADYCARDIA MARKED LEFT AXIS DEVIATION [QRS AXIS < -30] INCOMPLETE RIGHT BUNDLE BRANCH BLOCK [90+ ms QRS DURATION, TERMINAL R IN V1/V2, 40+ ms S IN I/aVL/V4/V5/V6] No previous ECG available for comparison Electronically Signed On 07-27-2023 12:05:30 CDT by Anabel Shahid M.D.
[2023-07-26 22:17] VITALS: BP 126/61; PULSE 61; RESP 20; O2SAT 95
== END 2023-07-26 22:30 | disposition home or self-care (01) ==
PROVIDERS: Emergency Provider Emergency Medicine; PCP Internal Medicine
DX: N39.0 Urinary tract infection, site not specified (principal); Z20.822 Contact with and (suspected) exposure to COVID-19; K21.9 Gastro-esophageal reflux disease without esophagitis; F32.A Depression, unspecified; Z87.440 Personal history of urinary (tract) infections; R06.02 Shortness of breath
CPT/HCPCS: 36415; 70450; 71045; 80053; 81001; 83605; 83735; 84145; 84484; 85025; 85610; 85730; 87077; 87086; 87088; 87186; 87637; 93005; 96361; 96365; 99284; J0696; J7030

== ENCOUNTER 2023-08-05 09:55 | Emergency (ER) | payer MEDICARE, SELFPAY ==
[2023-08-05] VITALS (7 sets, daily range): BP systolic 114–153; BP diastolic 54–94; PULSE 62–67; RESP 14–18; TEMP 37.1; O2SAT 95–100
--- NOTE | 2023-08-05 12:33 | ED.FEMALEGU ---
HPI - Female Genitourinary General Chief complaint: Urogenital-Female Stated complaint: UTI Time Seen by Provider: 08/05/23 12:23 History of Present Illness HPI Narrative: Patient is an 82-year-old female who presents to the emergency department this afternoon complaining of dysuria. Patient admits that she was seen at our facility approximately 10 days ago and was diagnosed with urinary tract infection and placed on an antibiotic. Patient states that although she finished the antibiotic she feels as though her symptoms are still persisting. Patient states that initially she felt as though her symptoms were getting better, however, once the antibiotics were finished she noticed that she was still having the dysuria. Patient was sent home on cephalexin, however, her culture results did come back with E coli that is resistant to all cephalosporins, susceptible to Augmentin and Bactrim. Patient denies any additional symptoms or concerns at this time. Related Data Home Medications Medication Instructions Recorded Confirmed cholecalciferol (vitamin D3) 25 25 mcg PO DAILY 11/17/19 08/05/23 mcg (1,000 unit) capsule vitamin B complex 1 tablet PO DAILY 10/27/22 08/05/23 vitamin E (dl, acetate) 90 mg (200 90 mg PO DAILY 10/27/22 08/05/23 unit) capsule galantamine 8 mg 24 hr 8 mg PO QAM 05/04/23 08/05/23 capsule,extended release Allergies Allergy/AdvReac Type Severity Reaction Status Date / Time No Known Allergies Allergy Verified 08/05/23 09:00 Review of Systems Review of Systems: All systems are reviewed and are negative unless stated otherwise in the HPI. [facility] Past Medical History Medical History Abnormal uterine bleeding Bilateral cataracts Chronic diarrhea Chronic shortness of breath Claustrophobia Colon adenoma Decreased appetite Depression Elevated blood pressure reading GERD (gastroesophageal reflux disease) Increased bowel frequency Major depressive disorder, recurrent Memory deficit Proteinuria Tuberculosis Unintentional weight loss UTI (urinary tract infection) Surgical History Surgical History H/O bilateral cataract extraction H/O tubal ligation History of appendectomy Family History Family History Mother Family history of Alzheimer's disease Father Family history of coronary artery disease Social History Social History Smoking status: Former smoker Alcohol intake: current Drinks per week: 7 Alcohol use details: 1 glass of wine every night Lack of Transportation: No Lack of Food: Never True Current Housing: I Have Housing Concerned About Future Housing: No Difficulty Paying Gas/Electric Bills: No Difficulty Paying for Meds: No Currently Unemployed: No Education: High School Diploma/GED Difficulty w/ Childcare or Family Care: No Exam Narrative: General: Alert, awake, afebrile, in no acute distress. HEENT: PERRL, no rhinorrhea, no post nasal drip, oropharynx clear. Cardiovascular: Regular rate and rhythm, no murmurs, rubs or gallops, no peripheral edema. Respiratory: Clear to auscultation bilaterally, no tachypnea, no wheezing, no rhonchi, no rubs, no respiratory distress. Abdomen: Soft, nontender, nondistended, no rebound, no guarding, no peritoneal signs. Musculoskeletal: No joint swelling or deformity, normal muscle tone. Skin: No rashes or petechia, no signs of infection. Neurological: Alert and oriented to person, place, and time. Follows all commands. No focal deficits, speech is clear and fluent. Course Vital Signs Vital signs: Vital Signs Temperature 98.7 F 08/05/23 09:59 Pulse Rate 62 08/05/23 09:59 Respiratory Rate 18 08/05/23 09:59 Blood Pressure 149/94 H 08/05/23 09:59 Pulse Oximetry 100 06
[2023-08-05 12:43] LABS: Appearance Urine Turbid (Clear); Bacteria Urine 4+ /hpf; Bilirubin Urine Negative (Negative); Blood Urine 2+ (Negative); Color Urine Yellow (Yellow); Glucose Urine UA Negative (Negative); Ketones Urine Negative (Negative); Leukocyte Esterase Ur 3+ LEU/UL (Negative); Need Manual Microscopic Reviewed; Nitrate Urine Negative (Negative); Protein Urine 2+ mg/dL (Negative); Specific Grav Ur 1.016 (1.001-1.035); Squamous Epithelial Cell Urine Occasional /hpf (Few); Urobilinogen Urine 0.2 mg/dL (<2.0); WBC Urine >100 /hpf (0-3)
[2023-08-05 12:48] LABS: Add Urine Microscopic? YES
== END 2023-08-05 13:04 | disposition home or self-care (01) ==
LOC: ANHED 12:56
PROVIDERS: Emergency Medicine; Emergency Provider Emergency Medicine; PCP Internal Medicine
DX: N39.0 Urinary tract infection, site not specified (principal); Z87.891 Personal history of nicotine dependence
CPT/HCPCS: 81001; 87086; 87088; 99283

== ENCOUNTER 2024-06-11 19:06 | Emergency (ER) | payer MEDICARE, SELFPAY ==
[2024-06-11] VITALS (12 sets, daily range): BP systolic 62–164; BP diastolic 41–92; PULSE 51–71; RESP 12–17; TEMP 36.5; O2SAT 95–100
--- NOTE | ~2024-06-11 | CT_ITS ---
EXAMINATION: CT brain wo con DATE: 06/11/2024 19:44 INDICATION: trauma . TECHNIQUE: Computed tomography (CT) of the head was performed without intravenous contrast. The mA wa s adjusted according to patient size. Iterative reconstruction technique was employed. The dose-lengt h product was 681.00 mGy-cm. COMPARISON: 07/26/2023. FINDINGS: No acute intracranial hemorrhage or extra-axial fluid collection. No hydrocephalus, mass, or herniation. No acute ischemic infarct. Unremarkable dural venous sinus attenuation. No acute osseous abnormality. Air-fluid level in the right maxillary sinus, the remaining aerated spaces are clear. Moderate atrophy and chronic white matter change. Atherosclerotic intracranial calcification. Bilater al lens replacements. 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 Small air-fluid level in the right maxillary sinus, may represent acute sinusitis or mucosal hemorrha ge in the setting of trauma. Reviewed, dictated and finalized at location K. IMPRESSION: No acute intracranial process. Small air-fluid level in the right maxillary sinus, may represent acute sinusit is or mucosal hemorrhage in the setting of trauma.
--- NOTE | ~2024-06-11 | CT_ITS ---
EXAMINATION: CT abdomen pelvis w con DATE: 06/11/2024 20:56 INDICATION: Pelvic hematoma TECHNIQUE: Computed tomography (CT) of the abdomen and pelvis was performed with 100 mL Omnipaque-350 intravenous contrast. Automated exposure control and iterative reconstruction technique were employe d. The dose-length product was 486.18 mGy-cm. COMPARISON: CT lumbar spine and pelvis, same date; CT cap 07/29/2021. FINDINGS: Lower thorax: Cardiomegaly. Moderate pericardial effusion. Liver: Normal. Biliary/Gallbladder: Gallbladder is normal. No bile duct dilation. Pancreas: No mass or duct dilation. Spleen: Normal. Adrenals: Left adrenal adenoma. Kidneys: Simple left midpole cyst. Bilateral subcentimeter hypodensities, too small to characterize b ut most likely represent cysts. Nonobstructing right lower pole calcification. Right renal atrophy. M ild right pelviectasis and caliectasis, with mild urothelial enhancement. GI tract: Mild distal esophageal and gastric wall edema. No small or large bowel dilation. Appendix n ot confidently visualized. Diverticulosis without diverticulitis. Mesentery/Peritoneum: No ascites, mass, or free air. Retroperitoneum: No mass. Pelvis: Pelvic organs are within normal limits. Small volume free pelvic fluid. Soft Tissues: Enlarging left posterolateral upper pelvic hematoma, at the level of the posterior arnoldo c crest, with a small focus of active extravasation, and increasing surrounding subcutaneous strandin g. Enlarging area of subcutaneous stranding over the left lateral hip, also with a small focus of act cass extravasation. Bones: No acute osseous finding. IMPRESSION: Cardiomegaly with moderate pericardial effusion. Mild esophagitis/gastritis. Chronic right UPJ obstruction, with urothelial enhancement that may indicate presence of pyelitis. Enlarging left posterolateral upper pelvic hematoma and left lateral hip cutaneous contusion, with ac tive hemorrhage in both areas. Results reported telephonically to Dr. Simmons by Dr. Asencio at 9:12 PM on 06/11/2024. Reviewed, dictated and finalized at location K. IMPRESSION: Cardiomegaly with moderate pericardial effusion. Mild esophagitis/gastritis. Chronic right UPJ obstruction, with urothelial enhancement that may indicate pr esence of pyelitis. Enlarging left posterolateral upper pelvic hematoma and left lateral hip cutane ous contusion, with active hemorrhage in both areas. Results reported telephonically to Dr. Simmons by Dr. Asencio at 9:12 PM on 06/11.
--- NOTE | ~2024-06-11 | CT_ITS ---
EXAMINATION: CT facial & cervical spine wo DATE: 06/11/2024 19:45 INDICATION: trauma TECHNIQUE: Computed tomography (CT) of the maxillofacial region and cervical spine was performed with out intravenous contrast. Automated exposure control and iterative reconstruction technique were empl oyed. The dose-length product was 132.93 mGy-cm. COMPARISON: None FINDINGS: CERVICAL: Vertebral Body Alignment: Reversed lordosis, centered at C5. Straightening of the upper cervical spin e. Grade 1 anterolistheses at C4-5, C6-7, and C7-T1. Craniocervical and atlantoaxial alignment: Severe degenerative change. Alignment intact. Osseous structures/fracture: No evidence of a lytic or blastic process in the visualized spine. No e vidence of acute fracture. Cervical soft tissues: The paraspinal soft tissues planes are maintained. Biapical pleural scarring. Degenerative changes: Degenerative changes, without severe neural foraminal or central canal narrowin g. FACE: Soft Tissues: No significant superficial soft tissue swelling. Facial bones: No acute fracture. No lytic or blastic process. Eyes: The globes are intact. Bilateral lens replacements. The soft tissue planes of the orbits are m aintained. Paranasal Sinuses: Small air-fluid level in the right maxillary sinus. The remaining visualized aera petty spaces are clear. Foreign Bodies: No radiopaque foreign bodies. Other Findings: None. IMPRESSION: No acute fracture or traumatic malalignment in the cervical spine. No acute facial bone fracture. Grade 1 anterolistheses at C4-5, C6-7, and C7-T1, presumably on a degenerative basis Small right maxillary air-fluid level, may represent acute sinusitis or small volume mucosal hemorrha ge in the setting of trauma. Reviewed, dictated and finalized at location K. IMPRESSION: No acute fracture or traumatic malalignment in the cervical spine. No acute fac ial bone fracture. Grade 1 anterolistheses at C4-5, C6-7, and C7-T1, presumably on a degenerative basis Small right maxillary air-fluid level, may represent acute sinusitis or small v olume mucosal hemorrhage in the setting of trauma.
--- NOTE | ~2024-06-11 | CT_ITS ---
EXAMINATION: CT pelvis wo con DATE: 06/11/2024 19:50 INDICATION: Trauma TECHNIQUE: Computed tomography (CT) of the pelvis was performed without intravenous contrast. Automat ed exposure control and iterative reconstruction technique were employed. The dose-length product was 205.48 mGy-cm. COMPARISON: CT lumbar spine, same date; CT cap 07/29/2021 FINDINGS: Osteopenia. Degenerative changes in the lumbar spine. Rudimentary disc at S1-S2. Mild degen erative changes at the bilateral hips and pubic symphysis. Scattered diverticuli. Unremarkable urinar y bladder and uterus. Bilateral ovaries not confidently visualized. Trace free pelvic fluid. Subcutan eous contusion over the left hip. 3.2 x 7.1 x 7.9 cm subcutaneous hematoma over the posterior aspect of the upper pelvis on the left, at the level of the iliac crest IMPRESSION: No acute osseous finding in the pelvis. 7.9 cm subcutaneous hematoma over the posterolateral upper pelvis. Reviewed, dictated and finalized at location K.
--- NOTE | ~2024-06-11 | CT_ITS ---
EXAMINATION: CT lumbar spine wo con DATE: 06/11/2024 19:46 INDICATION: trauma . TECHNIQUE: Computed tomography (CT) of the lumbar spine was performed without intravenous contrast. A utomated exposure control and iterative reconstruction technique were employed. The dose-length produ ct was 390.01 mGy-cm. COMPARISON: CT cap 07/29/2021. FINDINGS: 5 nonrib-bearing lumbar-type vertebral bodies. Pedicles intact. Stable 2 mm anterolisthesis at L3-4. Stable 5 mm anterolisthesis at L4-5. Vertebral body heights preserved. Multilevel severe de generative disc disease. Multilevel moderate facet arthropathy. Rudimentary disc at S1-S2. Severe jesus manuel tral canal narrowing at L3-4 and L4-5, secondary to degenerative changes. Multilevel moderate bilater al neural foraminal narrowing. Partially visualized simple left renal cyst. Right pelviectasis and ca liectasis, likely chronic UPJ obstruction and unchanged. IMPRESSION: No acute fracture or traumatic malalignment in the lumbar spine. Reviewed, dictated and finalized at location K.
--- NOTE | 2024-06-11 19:14 | ED.GENADULT ---
HPI - General Adult General Chief complaint: Trauma Stated complaint: fall down 12 steps Time Seen by Provider: 06/11/24 19:08 History of Present Illness HPI narrative: 83-year-old female presenting to the emergency department for evaluation after having a fall down approximately 12 stairs. Patient states she did have a ground level fall earlier but then after getting home from a restaurant she was going up stairs and fell backwards down the steps. Patient does have an abrasion to her face does complain of headache and left hip pain. Patient denies any loss of consciousness. Lower orientated. Patient was recommended to go to [facility] or [place] Related Data Home Medications ?Medication ?Instructions ?Recorded ?Confirmed ?Last Taken ?Type cholecalciferol (vitamin D3) 25 25 mcg PO DAILY 11/17/19 01/25/24 05/30/21 History mcg (1,000 unit) capsule vitamin B complex 1 tablet PO DAILY 10/27/22 01/25/24 Unknown History vitamin E (dl, acetate) 90 mg (200 90 mg PO DAILY 10/27/22 01/25/24 Unknown History unit) capsule galantamine 8 mg 24 hr 8 mg PO QAM 05/04/23 01/25/24 Unknown History capsule,extended release ascorbate calcium (vitamin C) 500 500 mg PO DAILY 11/08/23 01/25/24 Unknown History mg tablet Allergies Allergy/AdvReac Type Severity Reaction Status Date / Time No Known Allergies Allergy Verified 01/25/24 14:20 Review of Systems Review of Systems: All systems reviewed & are unremarkable except as noted in HPI and below PMFSH Past Medical History Medical History (Updated 06/11/24 @ 21:31 by Yoni Simmons MD) Major depressive disorder in remission Major depressive disorder, recurrent Increased bowel frequency Decreased appetite Chronic diarrhea Unintentional weight loss Proteinuria Tuberculosis Colon adenoma Memory deficit Elevated blood pressure reading Claustrophobia Depression UTI (urinary tract infection) Abnormal uterine bleeding GERD (gastroesophageal reflux disease) Chronic shortness of breath Bilateral cataracts Surgical History Surgical History H/O tubal ligation History of appendectomy H/O bilateral cataract extraction Family History Family History Mother Family history of Alzheimer's disease Father Family history of coronary artery disease Social History Social History Smoking status: Former smoker Alcohol intake: current Drinks per week: 7 Alcohol use details: 1 glass of wine every night Lack of Transportation: No Lack of Food: Never True Current Housing: I Have Housing Concerned About Future Housing: No Difficulty Paying Gas/Electric Bills: No Difficulty Paying for Meds: No Currently Unemployed: No Education: High School Diploma/GED Difficulty w/ Childcare or Family Care: No Exam Narrative: APPEARANCE: Well appearing, no pain, no distress, well-nourished. HEAD: normocephalic, abrasion to head. EYES: PERRLA/EOMI, conjunctivae clear. NOSE: Normal no drainage EARS:TMS clear with good light reflex. THROAT: Pharynx clear, no exudate. NECK: Supple. No adenopathy, no masses. RESPIRATORY: Airway patent, respirations nonlabored. Clear to auscultation bilaterally, no rales, rhonchi, wheezing. CARDIOVASCULAR: Regular rate and rhythm without murmurs rubs or gallops. ABDOMINAL: Soft, nontender, nondistended, normal bowel sounds MUSCULOSKELETAL: Left hip tenderness to palpation NEURO: Alert. Cranial nerves II through XII intact. Good gait. Good coordination SKIN: Warm, dry. Normal Color Course Vital Signs Vital signs: Vital Signs Temperature 97.7 F 06/11/24 19:06 Pulse Rate 64 06/11/24 19:06 Respiratory Rate 13 06/11/24 19:06 Blood Pressure 164/92 H 06/11/24 19:06 Pulse Oximetry 99 06/11/24 19:06 Oxygen Delivery Room Air 06/11/24 19:06 Temperature 97.7 F 06/11/24 19:06 Pulse Rate 52 L 06/11/24 22:16 Respiratory Rate 15 06/11/24 22:16 Blood Pressure 100/58 L 06/11/24 22:16 Pulse Oximetry 97 06/11/24 22:16 Oxygen Delivery Room Air 06/11/24 19:06 Medical Decision Making MDM Narrative Medical decision making narrative: 83-year-old female presenting to the ED for evaluation after having a fall down 12 steps. Patient's head neck and face imaging was negative for acute fracture. Patient's initial CT pelvis without contrast did show a large left hematoma. CT abdomen pelvis with contrast was ordered and did show a 2nd hematoma and enlargement of the initially seen hematoma with evidence of active extravasation. Patient is not take any blood thinners. Patient was updated on the results of her imaging. I feel the patient needs to be transferred to a center higher level care with potential for Interventional Radiology due to this still having active extravasation up to 2-1/2 hours after the initial injury. Case was discussed with the ED physician had [facility] and she was accepted for transfer ED to ED Differential Diagnosis Differential Diagnosis: Subdural hematoma, subarachnoid hemorrhage, facial fracture, cervical spine fracture, hip fracture, pelvic fracture Vital Signs Vital Signs: Vital Signs Temperature 97.7 F 06/11/24 19:06 Pulse Rate 64 06/11/24 19:06 Respiratory Rate 13 06/11/24 19:06 Blood Pressure 164/92 H 06/11/24 19:06 Pulse Oximetry 99 06/11/24 19:06 Oxygen Delivery Room Air 06/11/24 19:06 Temperature 97.7 F 06/11/24 19:06 Pulse Rate 52 L 06/11/24 22:16 Respiratory Rate 15 06/11/24 22:16 Blood Pressure 100/58 L 06/11/24 22:16 Pulse Oximetry 97 06/11/24 22:16 Oxygen Delivery Room Air 06/11/24 19:06 Lab Data Lab results reviewed: Yes I reviewed the patient's lab results. 06/11/24 19:54 06/11/24 19:54 Labs: Lab Results 06/11/24 Range/Units 19:54 WBC 6.1 (4.5-10.0) K/mm3 RBC 3.68 L (4.2-5.4) M/mm3 Hgb 10.9 L (12.0-15.0) g/dL Hct 34.1 L (37.0-47.0) % MCV 92.7 (80-100) fl MCH 29.6 (26-34) pg MCHC 32.0 (32-36) g/dl RDW 13.0 (11.5-14.5) % Plt Count 205 (150-375) k/mm3 MPV 10.5 H (7.4-10.4) fl Immature Gran % (Auto) 0.3 (0-0.5) % Neut % (Auto) 67.7 (45.5-73.1) % Lymph % (Auto) 19.6 (18.3-44.2) % [place] % (Auto) 9.5 H (2.6-8.5) % Eos % (Auto) 1.8 (0-4.4) % Baso % (Auto) 1.1 (0.2-1.2) % Lymph # (Auto) 1.20 (0.9-3.2) K/mm3 [place] # (Auto) 0.6 (0.1-0.6) K/mm3 Eos # (Auto) 0.1 (0-0.3) K/mm3 Baso # (Auto) 0.1 (0.0-0.1) K/mm3 Abs Immat Gran (auto) 0.02 (0.00-0.031) K/mm3 Absolute Neuts (auto) 4.2 (1.3-6.7) K/mm3 Absolute Nucleated RBC 0.000 (0.0-0.012) K/mm3 Nucleated RBC % 0.0 (0.0-0.2) % PT 12.9 (11.1-14.7) Seconds INR 0.9 APTT 26.2 (22.3-36.8) Seconds Sodium 139 (137-145) mmol/L Potassium 3.8 (3.4-5.0) mmol/L Chloride 104 (98-107) mmol/L Carbon Dioxide 31 H (22-30) mmol/L Anion Gap 4 (4-12) mmol/L BUN 17 (7-17) mg/dL Creatinine 0.88 (0.7-1.0) mg/dL Estim Creat Clear Calc 36 ml/min Estimated GFR > 60 (59 - ) Glucose 96 (65-110) mg/dL Calcium 9.0 (8.4-10.2) mg/dL Total Bilirubin 0.7 (0.2-1.3) mg/dL AST 28 (14-36) U/L ALT 17 (6-35) U/L Alkaline Phosphatase 113 (38-126) U/L Total Protein 7.0 (6.3-8.2) g/dL Albumin 3.9 (3.5-5.1) g/dL Imaging Data Radiologist's impression: Impressions Head CT 06/11/24 20:01 IMPRESSION: No acute intracranial process. Small air-fluid level in the right maxillary sinus, may represent acute sinusitis or mucosal hemorrhage in the setting of trauma. Head/Cervical Spine/Facial Bones CT 06/11/24 20:04 IMPRESSION: No acute fracture or traumatic malalignment in the cervical spine. No acute facial bone fracture. Grade 1 anterolistheses at C4-5, C6-7, and C7-T1, presumably on a degenerative basis Small right maxillary air-fluid level, may represent acute sinusitis or small volume mucosal hemorrhage in the setting of trauma. Lumbar Spine CT 06/11/24 20:11 IMPRESSION: No acute fracture or traumatic malalignment in the lumbar spine. Pelvis CT 06/11/24 20:22 IMPRESSION: No acute osseous finding in the pelvis. 7.9 cm subcutaneous hematoma over the posterolateral upper pelvis. Abdomen/Pelvis CT 06/11/24 21:02 IMPRESSION: Cardiomegaly with moderate pericardial effusion. Mild esophagitis/gastritis. Chronic right UPJ obstruction, with urothelial enhancement that may indicate presence of pyelitis. Enlarging left posterolateral upper pelvic hematoma and left lateral hip cutaneous contusion, with active hemorrhage in both areas. Results reported telephonically to Dr. Simmons by Dr. Asencio at 9:12 PM on 06/11/2024. Critical Care Time Critical Care Time Critical Care Time: Yes Total Critical Care Time: 35 Discharge Plan Discharge Clinical Impression: Hematoma of left hip Patient Disposition: Acute Care Hospital Condition: Serious Patient Language: Honduran Prescriptions: No Action cholecalciferol (vitamin D3) 25 mcg (1,000 unit) capsule 25 mcg PO DAILY vitamin B complex Tablet Extended Release 1 tablet PO DAILY vitamin E (dl, acetate) 90 mg (200 unit) capsule 90 mg PO DAILY galantamine 8 mg capsule,ext rel. pellets 24 hr 8 mg PO QAM Patient Comments: [facility] Rx Instructions: administer with breakfast ascorbate calcium (vitamin C) 500 mg tablet 500 mg PO DAILY sertraline 100 mg tablet 100 mg PO DAILY Qty: 100 1RF mirtazapine 7.5 mg tablet 7.5 mg PO QHS Qty: 100 1RF Follow-up/Referrals: Nic Solorio, [Primary Care Provider] -
--- OUTSIDE RECORDS SUMMARY | 2024-06-11 19:54 | XMS_ITS | Encounter Summary ---
Author Organization [facility] Address [address] [place] [address] Phone Care Team Providers Care Operations Supervisor 2Nd Shift Name Role Phone Nic Solorio DO Primary Care Provider [phone] Encounter Details Date Type Department Care Team (Late st Contact Info) Description 04/19/2024 Results Follow-Up [facility] [address] [place] [address] Destiny Crane NP [facility] [place] [address] Social History Tobacco Use Types Packs/Day Years Used Date Smoking Tobacco: Former Cigarettes Q uit: 06/17/1990 Smokeless Tobacco: Never Comments Unknown Sex and Gender Information Value Date Recorded Sex Assigned at Not on file Legal Sex Female 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 She may proceed with infusions as scheduled. documented in this encounter Plan of Treatment Not on file documented as of this encounter Visit Diagnoses Not on filedocumented in this encounter Care Teams Operations Supervisor 2Nd Shift Relationship Specialty Start Date End Date Nic Solorio DO PCP - General Internal Medicine 02/25/18 documented as of this encounter
--- OUTSIDE RECORDS SUMMARY | 2024-06-11 19:54 | XMS_ITS | Clinical Summary ---
Author Organization [facility] Address [address] [place] [address] Care Team Providers Care Life Manager Name Role Phone Unavailable Primary Care Provider Unavailabl e Source Comments [facility],non-owned Affiliates and Associated Physician Practices is amultiple site organization consisting of ambulatory clinics and hospital sitesin [place], [place], [place] and [place]. This disclosure is being madepursuant to the Care Everywhere program and may not contain all information available regarding this patient. Last updated [employer] [facility] Allergies No known active allergies Medications * Be aware that medications may not be up to date on this document. Alwaysverify current medications with the patient. famciclovir (FAMVIR) 500 MG tablet Take 1 Tab by mouth 3 times daily. 21 Tab 0 10/31/2009 Active estradiol (ESTRACE) 1 MG tablet Take 1 Tab by mouth once daily. 30 Tab 0 01/09/2011 Active venlafaxine XR 24hr (EFFEXOR XR) 75 MG capsule Take 1 Cap by mouth daily with breakfast. 90 Cap 0 01/14/2011 Active Active Problems Problem Noted Date Diagnosed Date Cervical cancer screening 01/23/2009 Overview (01/23/2009): 10/31/07 Breast cancer screening 01/23/2009 Overview (01/23/2009): 03/28/08 Normal Menopause Depression GERD (gastroesophageal reflux disease) Immunizations Immunization Administration Dates Next Due PNEUMOCOCCAL PPSV23 10/31/2007 ZOSTER VACCINE, LIVE 05/29/2008 Social History Tobacco Use Types Packs/Day Years Used Date Smoking Tobacco: Former Alcohol Use Standard Drinks/Week Comments Yes 0 (1 standard drink = 0.6 oz pur e alcohol) occasional Comments No Sex and Gender Information Value Date Recorded Sex Assigned at Not on file Legal Sex Female 6:46 AM SHIPPING CLERK PACKING Gender Identity Not on file Sexual Orientation Not on file Last Filed Vital Signs Vital Sign Reading Time Taken Comments Blood Pressure 112/68 03/13/2010 9:12 AM SHIPPING CLERK PACKING Pulse 66 03/13/2010 9:12 AM SHIPPING CLERK PACKING Temperature - - Respiratory Rate 12 03/13/2010 9:12 AM SHIPPING CLERK PACKING Oxygen Saturation - - Inhaled Oxygen Concentration - - Weight 80.1 kg (176 lb 8 oz) 03/13/2010 9:12 AM SHIPPING CLERK PACKING Height 158.8 cm (5' 2.5 ) 03/13/2010 9:12 AM SHIPPING CLERK PACKING Body Mass Index 31.77 03/13/2010 9:12 AM SHIPPING CLERK PACKING Plan of Treatment Health Maintenance Due Date Last Done Comments BONE DENSITY TESTING 1940 DTAP/TDAP/TD VACCINES (1 - Tdap) 10/19/1959 ZOSTER VACCINE (2 of 3) 07/24/2008 05/29/2008 PNEUMOCOCCAL VACCINE 50+ (2 of 2 - PCV) 10/30/2008 10/31/2007 Respiratory Syncytial Virus (RSV) Vaccine Pt: or over 60 yrs (1 - 1-dose 75+ series) 10/19/2015 COVID-19 VACCINE ( - 2023-2 5 season) 2023 DEPRESSION SCREENING 02/09/2024 INFLUENZA VACCINE (Season Ended) 2024 HEPATITIS B VACCINE Aged Out No longe r eligible based on patient's age to complete this topic HIB VACCINE Aged Out No longer eligi ble based on patient's age to complete this topic HPV VACCINE Aged Out No longer eligi ble based on patient's age to complete this topic MENINGOCOCCAL (Group B) VACC INE SHARED DECISION-MAKING Aged Out No longer eligibl e based on patient's age to complete this topic MENINGOCOCCAL GROUPS A/C/Y/W VACCINE Aged Out No longer eligible b ased on patient's age to complete this topic Insurance
--- OUTSIDE RECORDS SUMMARY | 2024-06-11 19:54 | XMS_ITS | Clinical Summary ---
Author Organization [facility] Address [address] [place] [address] Care Team Providers Care Manager Pharmacy Name Role Phone Unavailable Primary Care Provider Unavailabl e Social History Tobacco Use Types Packs/Day Years Used Date Smoking Tobacco: Never Assessed Comments Unknown Sex and Gender Information Value Date Recorded Sex Assigned at Not on file Legal Sex Female 10:23 PM DIRECTOR OF SUPPLY CHAIN Gender Identity Not on file Sexual Orientation Not on file Plan of Treatment Health Maintenance Due Date Last Done Comments DTaP, Tdap and Td Vaccines ( 1 - Tdap) 10/19/1959 Pneumococcal Vaccine: 50+ Ye ars (1 of 1 - PCV) 1990 Zoster Vaccines (1 of 2) 1990 Dexa Scan (General) 2005 RSV Immunization or 60+ Years (1 - 1-dose 75+ series) 10/19/2015 COVID-19 Vaccine (2023-2 5 season) 2023 Meningococcal B Vaccine Aged Out No l onger eligible based on patient's age to complete this topic Meningococcal Vaccine Aged Out No brenda abraham eligible based on patient's age to complete this topic RSV Immunizations Under 20 Months Aged Out No longer eligible based on patient's age to complete this topic
--- OUTSIDE RECORDS SUMMARY | 2024-06-11 19:54 | XMS_ITS | Continuity of Care Document ---
Author Organization [facility] Address [address] [place] [address] [place] [address] Phone Care Team Providers Care Metal Furniture Assembler Name Role Phone [facility] Unavailable Unavail able Nathanael, Raquel Unavailable Unavailable Advance Directives Directive Yes / No Effective Date File Name No Information Encounters Encounter Description Practice Location Reason(s) For Visit Diagnoses Date Provider Providers Copied on Encounter [facility], [address], [place], [place], [id number], [place] tel:[phone] [facility] ([facility]) No Information Dec-3 0-200 2 [facility] n. [address], [address], [place], [place], [id number] , [place]. tel:[phone] Consulting Provider: Raquel Huffman, [address] [place] [address], [address]. tel:[phone] Family History Family Member Type Diagnosis Age At Onset No Information Payers Payer name Insurance type Covered republican ID Authoriza tion(s) No Information Social History Type Description Quantity Date Captured Comments Sex Female Smoking Status No Information Chief Complaint And Reason For Visit No Information Reason For Referral Reason For Referral No Information History Of Present Illness Encounter Date Complaint History Of Prese nt Illness No Information Functional Status Date Functional Assessmen t No Information Instructions Date Instruction Additional Infor mation No Information Assessments Type Assessment Date No Information Patient Care Teams Name Effective Dates (start - stop) Status Members No Information
--- OUTSIDE RECORDS SUMMARY | 2024-06-11 19:54 | XMS_ITS | Clinical Summary ---
Author Organization [facility] Address [facility] [place] [address] Care Team Providers Care Associate Team Physician Name Role Phone Nic Solorio DO Primary Care Provider [phone] Allergies No known active allergies Medications galantamine (RAZADYNE) 8 mg tablet Take 1 tablet (8 mg total) by mouth 2 (two) times a day 60 tablet 11 09/16/2023 5 Active mirtazapine (REMERON) 7.5 mg tablet Take 1 tablet (7.5 mg total) by mouth nightly Active Active Problems Problem Noted Date Diagnosed Date Alzheimer's disease with late onset (CODE) 02/24 Amnesia 06/21/2020 Depression 06/17/2020 GERD (gastroesophageal reflux disease) 1 Menopause 06/17/2020 Encounters Date Type Department Care Team Description 06/02/2024 1:30 PM CDT Infusion [address] [place] [phone] Alzheimer's disease with late onset (CODE) (HCC) (Primary Dx) 05/19/2024 1:00 PM CDT Infusion [facility] [address] [facility] [address] [place] [phone] Alzheimer's disease with late onset (CODE) (HCC) (Primary Dx) 05/05/2024 1:30 PM CDT Infusion [address] [place] [phone] Alzheimer's disease with late onset (CODE) (HCC) (Primary Dx) 04/21/2024 1:00 PM CDT Infusion [address] [place] [phone] Alzheimer's disease with late onset (CODE) (HCC) (Primary Dx) 04/19/2024 10:47 AM CDT - 04/19/2024 11:59 PM CDT Hospital Encounter [address] [address] Alzheimer's disease with late onset (CODE) (HCC) Discharge Disposition: Discharge to home or self care 04/19/2024 Results Follow-Up [address] [place] [address] Destiny Crane NP 04/11/2024 Orders Only [address] [place] [address] Annemarie Barron 04/07/2024 1:30 PM POWERPLANT OPERATOR Infusion [address] [phone] Alzheimer's disease with late onset (CODE) (HCC) (Primary Dx) 03/24/2024 1:30 PM POWERPLANT OPERATOR Infusion [address] [place] [phone] Alzheimer's disease with late onset (CODE) (HCC) (Primary Dx) 03/23/2024 10:57 AM POWERPLANT OPERATOR - 03/23/2024 11:59 PM POWERPLANT OPERATOR Hospital Encounter [address] [address] Alzheimer's disease with late onset (CODE) (HCC) Discharge Disposition: Discharge to home or self care from Last 3 Months Surgical History Surgery Date Site/Laterality Comments LUMBAR PUNCTURE WO INJECTION, DIAGNOSTIC 05/21/2022 N/A Social History Tobacco Use Types Packs/Day Years Used Date Smoking Tobacco: Former Cigarettes Q uit: 06/17/1990 Smokeless Tobacco: Never Tobacco Cessation:Counseling Given: Not Answered Comments Unknown Sex and Gender Information Value Date Recorded Sex Assigned at Not on file Legal Sex Female 3:08 PM POWERPLANT OPERATOR Gender Identity Not on file Sexual Orientation Not on file Obstetrics History Last Filed Vital Signs Vital Sign Reading Time Taken Comments Blood Pressure 152/72 06/02/2024 3:30 PM CDT Pulse 62 06/02/2024 3:30 PM CDT Temperature 36.6 C (97.9 F) 06/02/2024 3:30 PM CDT Respiratory Rate 16 06/02/2024 3:30 PM CDT Oxygen Saturation 96% 06/02/2024 3:30 PM CDT Inhaled Oxygen Concentration - - Weight 52.9 kg (116 lb 11.2 oz) 06/02/2024 1:35 PM CDT Height 157.5 cm (5' 2 ) 12/12/2023 2:30 PM POWERPLANT OPERATOR Body Mass Index 21.34 12/12/2023 2:30 PM POWERPLANT OPERATOR Plan of Treatment Health Maintenance Due Date Last Done Comments Depression Screening 1940 Fall Risk Assessment 1940 Osteoporosis Screening-Bone Density Scan 1940 DTaP/Tdap/Td Vaccine (1 - Tdap) 10/19/1951 Hepatitis B Screening 1958 Well Visit 65+ 2005 Zoster Vaccine (2 of 3) 07/24/2008 05/29/2008 Pneumococcal vaccine 65+ (2 of 2 - PCV) 10/30/2008 10/31/2007 Influenza Vaccine (Season Ended) 2024 10/26/2019, 12/05/2018, 11/28/2017, Additional history exists Procedures Procedure Name Priority Date/Time Associated Diagnosis Comments MRI BRAIN ALZHEIMER TX WO CONTRAST Schedule ANGI, Read ANGI (Appt Today, Awaiting Results) 04/19/2024 11:15 AM CDT Alzheimer's disease with late onset (CODE) (HCC) MRI BRAIN ALZHEIMER TX WO CONTRAST Schedule ANGI, Read ANGI (Appt Today, Awaiting Results) 03/23/2024 11:32 AM POWERPLANT OPERATOR Alzheimer's disease with late onset (CODE) (HCC) from Last 3 Months Results * MRI Brain Alzheimer Tx WO Contrast (04/19/2024 11:15 AM CDT) Anatomical Region Laterality Modality Head and Neck N/A Magnetic Resonan ce 04/19/2024 11:2 5 AM CDT Narrative 04/19/2024 11:32 AM CDT EXAM DESCRIPTION: MRI BRAIN ALZHEIMER TX WO CONTRAST EXAMINATION: Magnetic resonance imaging (MRI) of the brain and brainstem without contrast. REASON FOR STUDY: Memory loss. Dementia, nonvascular etiology suspected, Post Lecanemab infusion, R/O ARIA Post Lecanemab infusion #6 on 04/07/24, R/O ARIA Dx: Alzheimer's disease TECHNIQUE: Multiplanar multi-weighted MRI of the brain and brainstem was performed without intravenous contrast using a protocol specific to assess patients under consideration for or undergoing treatment with anti-amyloid monoclonal antibody therapy. The protocol specifically includes high resolution T1-weighted images to assess brain structures, such as hippocampal volumes, FLAIR to assess for edema related to amyloid related imaging abnormality (ARIA-E), potential infarcts and white matter hyperintensities (WMH) which may be associated with vascular cognitive impairment, and susceptibility sensitive sequences for detection of cerebral microhemorrhages (MCH) and siderosis (ARIA-H). COMPARISON: MRI brain dated 03/23/2024, 12/12/2023 and 09/17/2022. FINDINGS: ASSESSMENT FOR ARIA: Prior FLAIR hyperintensities concerning for ARIA-E: None. New/incident FLAIR hyperintensities concerning for ARIA-E: None. Prior cerebral microhemorrhages: 2, the right frontal (series 8, image 105) and right occipital (series 8, image 59) as seen previously. New/incident cerebral microhemorrhages (ARIA-H): None. Total cerebral microhemorrhages: 2. Prior siderosis: None. New/Incident siderosis (ARIA-H): None. There is no diffusion restriction to suggest acute/recent infarction. The subcortical and periventricular white matter T2/FLAIR hyperintense signal in the bilateral cerebral hemispheres is nonspecific but compatible with chronic microvascular ischemic type change in a patient of this age. IMPRESSION: ARIA: None. Microhemorrhages: No new microhemorrhage. The old microhemorrhage as described previously. Siderosis: None. THIS IS AN ELECTRONICALLY VERIFIED FINAL REPORT 04/19/2024 11:32 AM - Electronically signed by Jose Shahid D.O. AP: MICHELLE Report ID: [id number] Reading Location: [place] [address] Procedure Note Jose Shahid, DO - 04/19/2024 EXAM DESCRIPTION: MRI BRAIN ALZHEIMER TX WO CONTRAST EXAMINATION: Magnetic resonance imaging (MRI) of the brain and brainstem without contrast. REASON FOR STUDY: Memory loss. Dementia, nonvascular etiology suspected, Post Lecanemab infusion, R/OARIA Post Lecanemab infusion #6 on 04/07/24, R/O ARIA Dx: Alzheimer's disease TECHNIQUE: Multiplanar multi-weighted MRI of the brain and brainstem was performed without intravenous contrast using a protocol specific to assess patients under consideration for or undergoing treatment with anti-amyloid monoclonal antibody therapy. The protocol specifically includes high resolution T1-weighted images to assess brain structures, such ashippocampal volumes, FLAIR to assess for edema related to amyloid related imaging abnormality (ARIA-E), potential infarcts and white matter hyperintensities (WMH) which may be associated with vascular cognitive impairment, and susceptibility sensitive sequences for detection of cerebralmicrohemorrhages (MCH) and siderosis (ARIA-H). COMPARISON: MRI brain dated 03/23/2024, 12/12/2023 and 09/17/2022. FINDINGS: ASSESSMENT FOR ARIA: Prior FLAIR hyperintensities concerning for ARIA-E: None. New/incident FLAIR hyperintensities concerning for ARIA-E: None. Prior cerebral microhemorrhages: 2, the right frontal (series 8, [id number]) and right occipital (series 8, image 59) as seen previously. New/incident cerebral microhemorrhages (ARIA-H): None. Total cerebral microhemorrhages: 2. Prior siderosis: None. New/Incident siderosis (ARIA-H): None. There is no diffusion restriction to suggest acute/recent infarction. The subcortical and periventricular white matter T2/FLAIR hyperintense signalin the bilateral cerebral hemispheres is nonspecific but compatible withchronic microvascular ischemic type change in a patient of this age. IMPRESSION: ARIA: None. Microhemorrhages: No new microhemorrhage. The old microhemorrhage as described previously. Siderosis: None. THIS IS AN ELECTRONICALLY VERIFIED FINAL REPORT 04/19/2024 11:32 AM - Electronically signed by Jose Shahid D.O. AP: MICHELLE Report ID: [id number] Reading Location: [id number] Destiny Crane NP IMG MRI PROCEDURES Fi nal Result * MRI Brain Alzheimer Tx WO Contrast (03/23/2024 11:32 AM POWERPLANT OPERATOR) Anatomical Region Laterality Modality Head and Neck N/A Magnetic Resonan ce 03/23/2024 11:4 8 AM POWERPLANT OPERATOR Narrative 03/23/2024 11:54 AM POWERPLANT OPERATOR EXAM DESCRIPTION: MRI BRAIN ALZHEIMER TX WO CONTRAST EXAMINATION: Magnetic resonance imaging (MRI) of the brain and brainstem without contrast. REASON FOR STUDY: Memory loss. Dementia, nonvascular etiology suspected, Post Lecanemab infusion, R/O ARIA Post Lecanemab infusion. 4th treatment was on 03-10-24 R/o Aria. Hx of Alzheimer's TECHNIQUE: Multiplanar multi-weighted MRI of the brain and brainstem was performed without intravenous contrast using a protocol specific to assess patients under consideration for or undergoing treatment with anti-amyloid monoclonal antibody therapy. The protocol specifically includes high resolution T1-weighted images to assess brain structures, such as hippocampal volumes, FLAIR to assess for edema related to amyloid related imaging abnormality (ARIA-E), potential infarcts and white matter hyperintensities (WMH) which may be associated with vascular cognitive impairment, and susceptibility sensitive sequences for detection of cerebral microhemorrhages (MCH) and siderosis (ARIA-H). COMPARISON: MRI brain dated 12/12/2023 and 09/17/2022. FINDINGS: ASSESSMENT FOR ARIA: Prior FLAIR hyperintensities concerning for ARIA-E: None. New/incident FLAIR hyperintensities concerning for ARIA-E: None. Prior cerebral microhemorrhages: 2, the right frontal (series 8, image 117) and right occipital (series 8, image 61) as seen on the previous MRI dated 12/12/2023. New/incident cerebral microhemorrhages (ARIA-H): No new intracranial hemorrhage. Total cerebral microhemorrhages: 2. Prior siderosis: None. New/Incident siderosis (ARIA-H): None. There is no diffusion restriction to suggest acute/recent infarction. The subcortical and periventricular white matter T2/FLAIR hyperintense signal in the bilateral cerebral hemispheres as seen previously and compatible with chronic microvascular ischemic type change in a patient of this age. IMPRESSION: ARIA: None. Microhemorrhages: No new microhemorrhages. The 2 microhemorrhages described on the MRI brain dated 12/12/2023 are redemonstrated. Siderosis: None. THIS IS AN ELECTRONICALLY VERIFIED FINAL REPORT 03/23/2024 11:54 AM - Electronically signed by Jose Shahid D.O. AP: MICHELLE Report ID: [id number] Reading Location: [id number] Procedure Note Jose Shahid, DO - 03/23/2024 EXAM DESCRIPTION: MRI BRAIN ALZHEIMER TX WO CONTRAST EXAMINATION: Magnetic resonance imaging (MRI) of the brain and brainstem without contrast. REASON FOR STUDY: Memory loss. Dementia, nonvascular etiology suspected, Post Lecanemab infusion, R/OARIA Post Lecanemab infusion. 4th treatment was on 03-10-24 R/o Aria. Hx of Alzheimer's TECHNIQUE: Multiplanar multi-weighted MRI of the brain and brainstem was performed without intravenous contrast using a protocol specific to assess patients under consideration for or undergoing treatment with anti-amyloid monoclonal antibody therapy. The protocol specifically includes high resolution T1-weighted images to assess brain structures, such ashippocampal volumes, FLAIR to assess for edema related to amyloid related imaging abnormality (ARIA-E), potential infarcts and white matter hyperintensities (WMH) which may be associated with vascular cognitive impairment, and susceptibility sensitive sequences for detection of cerebralmicrohemorrhages (MCH) and siderosis (ARIA-H). COMPARISON: MRI brain dated 12/12/2023 and 09/17/2022. FINDINGS: ASSESSMENT FOR ARIA: Prior FLAIR hyperintensities concerning for ARIA-E: None. New/incident FLAIR hyperintensities concerning for ARIA-E: None. Prior cerebral microhemorrhages: 2, the right frontal (series 8, [id number]) and right occipital (series 8, image 61) as seen on the previous MRI dated 12/12/2023. New/incident cerebral microhemorrhages (ARIA-H): No new intracranial hemorrhage. Total cerebral microhemorrhages: 2. Prior siderosis: None. New/Incident siderosis (ARIA-H): None. There is no diffusion restriction to suggest acute/recent infarction. The subcortical and periventricular white matter T2/FLAIR hyperintense signalin the bilateral cerebral hemispheres as seen previously and compatible with chronic microvascular ischemic type change in a patient of this age. IMPRESSION: ARIA: None. Microhemorrhages: No new microhemorrhages. The 2 microhemorrhagesdescribed on the MRI brain dated 12/12/2023 are redemonstrated. Siderosis: None. THIS IS AN ELECTRONICALLY VERIFIED FINAL REPORT 03/23/2024 11:54 AM - Electronically signed by Jose Shahid D.O. AP: MICHELLE Report ID: [id number] Reading Location: [place] [address] Destiny Crane NP IMG MRI PROCEDURES Fi nal Result from Last 3 Months Insurance [facility] Address: [facility] [address] [place] [address] [facility] [facility] Address: [facility] [address] [place] [address] Care Teams Associate Team Physician Relationship Specialty Start Date End Date Nic Solorio DO PCP - General Internal Medicine 02/25/18
--- OUTSIDE RECORDS SUMMARY | 2024-06-11 19:54 | XMS_ITS | Referral Summary ---
Author Organization [facility] Address [facility] [place] [address] Care Team Providers Care Chocolate Coater Name Role Phone Nic Solorio DO Primary Care Provider +1- [phone] Encounters Date Type Department Care Team Description 06/02/2024 1:30 PM CDT Infusion [address] [place] [address] Alzheimer's disease with late onset (CODE) (HCC) (Primary Dx) 05/19/2024 1:00 PM CDT Infusion [address] [place] [address] Alzheimer's disease with late onset (CODE) (HCC) (Primary Dx) 05/05/2024 1:30 PM CDT Infusion [address] [place] [address] Alzheimer's disease with late onset (CODE) (HCC) (Primary Dx) 04/21/2024 1:00 PM CDT Infusion [address] [place] [address] Alzheimer's disease with late onset (CODE) (HCC) (Primary Dx) 04/19/2024 Results Follow-Up [facility] [address] [place] [address] First Floor [address] [place] [address] Destiny Crane NP 04/19/2024 10:47 AM CDT - 04/19/2024 11:59 PM CDT Hospital Encounter [facility] 1 [place] [address] Alzheimer's disease with late onset (CODE) (HCC) Discharge Disposition: Discharge to home or self care 04/11/2024 Orders Only [facility] [address] [place] [address] First Floor [address] [place] [address] Annemarie Barron 04/07/2024 1:30 PM DELIVERY ANALYST Infusion [facility] [address] [facility] [address] [place] [address] Alzheimer's disease with late onset (CODE) (HCC) (Primary Dx) 03/24/2024 1:30 PM DELIVERY ANALYST Infusion [facility] [address] [facility] [address] [place] [address] Alzheimer's disease with late onset (CODE) (HCC) (Primary Dx) 03/23/2024 10:57 AM DELIVERY ANALYST - 03/23/2024 11:59 PM DELIVERY ANALYST Hospital Encounter [facility] 1 [place] [address] Alzheimer's disease with late onset (CODE) (HCC) Discharge Disposition: Discharge to home or self care from Last 3 Months Allergies No known active allergies Medications galantamine [...] GERD (gastroesophageal reflux disease) 1 Menopause 06/17/2020 Social History Tobacco Use Types Packs/Day Years Used Date Smoking Tobacco: Former Cigarettes Q uit: 06/17/1990 Smokeless Tobacco: Never Tobacco Cessation:Counseling Given: Not Answered Comments Unknown Sex and Gender Information Value Date Recorded Sex Assigned at Not on file Legal Sex Female 3:08 PM DELIVERY ANALYST Gender Identity Not on file Sexual Orientation [...] cm (5' 2 ) 12/12/2023 2:30 PM DELIVERY ANALYST Body Mass Index 21.34 12/12/2023 2:30 PM DELIVERY ANALYST Plan of Treatment Not on file Procedures Procedure Name Priority Date/Time Associated Diagnosis Comments MRI BRAIN ALZHEIMER TX WO CONTRAST Schedule ANGI, Read ANGI (Appt Today, Awaiting Results) 04/19/2024 11:15 AM CDT Alzheimer's disease with late onset (CODE) (HCC) MRI BRAIN ALZHEIMER TX WO CONTRAST Schedule ANGI, Read ANGI (Appt Today, Awaiting Results) 03/23/2024 11:32 AM DELIVERY ANALYST Alzheimer's disease with late onset (CODE) (HCC) [...] Jose Shahid D.O. AP: MICHELLE Report ID: [id number] Reading Location: [id number] Procedure Note Jose Shahid DO - 04/19/2024 EXAM DESCRIPTION: MRI BRAIN [...] microhemorrhages: 2, the right frontal (series 8, ) and right occipital (series 8, image 59) [...] Jose Shahid D.O. AP: MICHELLE Report ID: [id number] Reading Location: [place] [address] Destiny Crane DOOR ATTENDANT IMG MRI PROCEDURES Fi nal Result * MRI Brain Alzheimer Tx WO Contrast (03/23/2024 11:32 AM DELIVERY ANALYST) Anatomical Region Laterality Modality Head and Neck N/A Magnetic Resonan ce 03/23/2024 11:4 8 AM DELIVERY ANALYST Narrative 03/23/2024 11:54 AM DELIVERY ANALYST EXAM DESCRIPTION: MRI BRAIN ALZHEIMER TX WO [...] Jose Shahid D.O. AP: MICHELLE Report ID: [id number] Reading Location: [place] [address] Procedure Note Jose Shahid, DO - 03/23/2024 [...] microhemorrhages: 2, the right frontal (series 8, [id number]) and right occipital (series 8, image 61) [...] Jose Shahid D.O. AP: MICHELLE Report ID: [id number] Reading Location: [place] [address] Destiny Crane NP IMG MRI PROCEDURES Fi nal Result from Last 3 Months Insurance UHC MEDICARE ADVANTAGE [facility] MEDICARE ADVANTAGE Care Teams Chocolate Coater Relationship Specialty Start Date End Date Nic Solorio DO PCP - General Internal Medicine 02/25/18
[2024-06-11] MEDS: fentaNYL CITRATE INJ (*CRX) 100 MCG/2 ML VIAL 50 MCG IV PUSH (20:00)
[2024-06-11 20:07] LABS: Basophils Absolute Auto 0.1 K/mm3 (0.0-0.1); Basophils Percent Auto 1.1 % (0.2-1.2); Eosinophils Absolute Auto 0.1 K/mm3 (0-0.3); Eosinophils Percent Auto 1.8 % (0-4.4); Hematocrit 34.1 % (37.0-47.0); Hemoglobin 10.9 g/dL (12.0-15.0); Immature Granulocyte Absolute 0.02 K/mm3 (0.00-0.031); Immature Granulocyte Percent A 0.3 % (0-0.5); Lymphocytes Percent Auto 19.6 % (18.3-44.2); Mean Corpuscular Hemoglobin 29.6 pg (26-34); Mean Corpuscular Volume 92.7 fl (80-100); Mean Platelet Volume 10.5 fl (7.4-10.4); Monocytes Absolute Auto 0.6 K/mm3 (0.1-0.6); Monocytes Percent Auto 9.5 % (2.6-8.5); Neutrophils Absolute Auto 4.2 K/mm3 (1.3-6.7); Neutrophils Percent Auto 67.7 % (45.5-73.1); Platelet Count Result 205 k/mm3 (150-375); Red Blood Count 3.68 M/mm3 (4.2-5.4); White Blood Count 6.1 K/mm3 (4.5-10.0)
[2024-06-11 20:16] LABS: Alanine Aminotransferase 17 U/L (6-35); Albumin Level 3.9 g/dL (3.5-5.1); Alkaline Phosphatase 113 U/L (38-126); Anion Gap 4 mmol/L (4-12); Aspartate Amino Transferase 28 U/L (14-36); Bilirubin,Total 0.7 mg/dL (0.2-1.3); Blood Urea Nitrogen 17 mg/dL (7-17); Carbon Dioxide 31 mmol/L (22-30); Chloride 104 mmol/L (98-107); Estimated CRCL calculation 36 ml/min; Estimated Glomerular Filt Rate > 60; Glucose 96 mg/dL (65-110); Potassium 3.8 mmol/L (3.4-5.0); Sodium 139 mmol/L (137-145)
[2024-06-11 20:21] LABS: INR 0.9; Prothrombin Time 12.9 Seconds (11.1-14.7)
[2024-06-11 20:22] LABS: Partial Thromboplastin Time 26.2 Seconds (22.3-36.8)
[2024-06-11] MEDS: MORPHINE SULFATE (*CRX) 4 MG/ML INJ IV PUSH (21:53)
[2024-06-11] MEDS: SODIUM CHLORIDE 0.9% IV 1,000 ML 999 ML (22:08)
--- NOTE | 2024-06-11 22:08 | PC.NURSE ---
due to decreased patient blood pressure of 70s/ 40s edp dr. laura mendoza 1L normal saline at a rate of 999mls/ hour.
--- NOTE | 2024-06-11 22:16 | PC.NURSE ---
U via [facility]
--- NOTE | 2024-06-11 22:19 | PC.NURSE ---
this rn called and updated Marcelo Tate about patient reaction to morphine. MARCELO Tate verbalized confirmation of sending patient.
== END 2024-06-11 22:22 | disposition short-term general hospital (02) ==
PROVIDERS: Emergency Provider Emergency Medicine; PCP Internal Medicine
DX: S70.02XA Contusion of left hip, initial encounter (principal); K21.9 Gastro-esophageal reflux disease without esophagitis; Z87.440 Personal history of urinary (tract) infections; Z87.891 Personal history of nicotine dependence; Z98.42 Cataract extraction status, left eye; Z98.41 Cataract extraction status, right eye; Z79.899 Other long term (current) drug therapy; W10.9XXA Fall (on) (from) unspecified stairs and steps, initial encounter; I51.7 Cardiomegaly; I31.39 Other pericardial effusion (noninflammatory); K29.70 Gastritis, unspecified, without bleeding; K20.90 Esophagitis, unspecified without bleeding; R93.0 Abnormal findings on diagnostic imaging of skull and head, not elsewhere classified
CPT/HCPCS: 36415; 70450; 70486; 72125; 72131; 72192; 72194; 74160; 74177; 80053; 85025; 85610; 85730; 96374; 96375; 99285; J2270; J3010; J7030; Q9967

== ENCOUNTER 2024-08-07 13:49 | Outpatient (NON) | payer MEDICARE, SELFPAY ==
--- OUTSIDE RECORDS SUMMARY | 2024-08-07 14:06 | XMS_ITS | Referral Summary ---
Author Organization [facility] Address [address] [place] [address] Care Team Providers Care Property Condition Assessor Name Role Phone Nic Solorio DO Primary Care Provider +1- [phone] Encounters Date Type Department Care Team Description 08/07/2024 10:35 AM CDT Ancillary Procedure [facility] Medical Group Imaging at [address] [address] Arrived 08/06/2024 10:45 AM CDT Office Visit [facility] Medical Group Convenient Care at [address] [address] Jessica Alvarado NP Toe infection (Primary Dx); Injury of left toe, initial encounter 07/31/2024 11:30 AM CDT Infusion [facility] [address] [facility] [address] [place] [address] Alzheimer's disease with late onset (CODE) (HCC) (Primary Dx) 07/26/2024 Results Follow-Up [facility] [address] [place] [address] First Floor [address] [place] [address] Destiny Crane NP MRI Brain Alzheimer Tx WO Contrast 07/26/2024 11:16 AM CDT - 07/26/2024 11:59 PM CDT Hospital Encounter [facility] 1 [place] [address] Alzheimer's disease with late onset (CODE) (HCC) Discharge Disposition: Discharge to home or self care 07/24/2024 Telephone [facility] General Neurology [address] [facility] 6th Floor [address] [place] [address] Cecilia Londono PA Lecanemab PA Renewal 07/20/2024 4:00 PM CDT Office Visit [facility] [address] [place] [address] 7th Floor [facility] [place] [address] Cecilia Londono PA Alzheimer's disease (HCC) (Primary Dx) 07/19/[address] [place] [address] Deven Sun, APRIL 07/07/2024 11:30 AM CDT Infusion [address] [place] [address] Alzheimer's disease with late onset (CODE) (HCC) (Primary Dx) 06/23/2024 11:30 AM CDT Infusion [address] [place] [address] Alzheimer's disease with late onset (CODE) (HCC) (Primary Dx) 06/13/[address] [place] [address] Simona Swift RN 06/12/2024 Telephone [facility] Home Care Services [address] [place] [address] Drive [address] [place] [address] Unknown, Notinfile 06/02/2024 1:30 PM CDT Infusion [address] [place] [address] Alzheimer's disease with late onset (CODE) (HCC) (Primary Dx) 05/19/2024 1:00 PM CDT Infusion [address] [place] [address] Alzheimer's disease with late onset (CODE) (HCC) (Primary Dx) from Last 3 Months Allergies No known active allergies Medications galantamine (RAZADYNE) 8 mg tablet Take 1 tablet (8 mg total) by mouth 2 (two) times a day 60 tablet 11 09/16/2023 5 Active mirtazapine (REMERON) 7.5 mg tablet Take 1 tablet (7.5 mg total) by mouth nightly Active cephalexin (KEFLEX) 500 mg capsule Take 1 capsule (500 mg total) by mouth 4 (four) times a day for 7 days 28 capsule 08/06/2024 5 Active Active Problems Problem Noted Date Diagnosed [...] on file 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 Gender Identity Not on file Sexual Orientation Not on file Last Filed Vital Signs Vital Sign Reading Time Taken Comments Blood Pressure 162/60 08/06/2024 10:21 AM CDT Pulse 71 08/06/2024 10:21 AM CDT Temperature 36.7 C (98 F) 08/06/2024 10:21 AM CDT Respiratory Rate 18 08/06/2024 10:21 AM CDT Oxygen Saturation 99% 08/06/2024 10:21 AM CDT Inhaled Oxygen Concentration - - Weight 52.2 kg (115 lb) 08/06/2024 10:21 AM CDT Height 157.5 cm (5' 2) 08/06/2024 10:21 AM CDT Body Mass Index 21.03 08/06/2024 10:21 AM CDT Plan of Treatment Not on file Procedures Procedure Name Priority Date/Time Associated Diagnosis Comments MRI BRAIN ALZHEIMER TX WO CONTRAST Schedule ANGI, Read ANGI (Appt Today, Awaiting Results) 07/26/2024 11:59 AM CDT Alzheimer's disease with late onset (CODE) (HCC) from Last 3 Months Results * MRI Brain Alzheimer Tx WO Contrast (07/26/2024 11:59 AM CDT) Anatomical Region Laterality Modality Head and Neck N/A Magnetic Resonan ce 07/26/2024 12:5 7 PM CDT Narrative 07/26/2024 1:08 PM CDT EXAM DESCRIPTION: MRI BRAIN ALZHEIMER TX WO CONTRAST EXAMINATION: Magnetic resonance imaging (MRI) of the brain and brainstem without contrast. REASON FOR STUDY: Memory loss. Dementia, nonvascular etiology suspected, Post Lecanemab infusion, R/O ARIA Post Lecanemab infusion, Infusion #10 on 07/07/24; R/O ARIA Dx: Alzheimer's disease with late onset TECHNIQUE: Multiplanar multi-weighted MRI of the brain [...] and siderosis (ARIA-H). COMPARISON: MRI brain dated 04/19/2024, 03/23/2024, 12/12/2023 and 09/17/2022. FINDINGS: ASSESSMENT FOR ARIA: Prior FLAIR hyperintensities concerning for ARIA-E: None. New/incident FLAIR hyperintensities concerning for ARIA-E: None. Prior cerebral microhemorrhages: 2, the right frontal and right occipital as seen previously. New/incident cerebral microhemorrhages (ARIA-H): None. Total cerebral microhemorrhages: 2 Prior siderosis: None. New/Incident siderosis (ARIA-H): None. There is no diffusion restriction to suggest acute/recent infarction. The subcortical periventricular white matter T2/FLAIR hyperintense signal in the bilateral cerebral hemispheres is nonspecific but compatible with chronic microvascular ischemic type change in a patient of this age. IMPRESSION: ARIA: None. Microhemorrhages: No new microhemorrhages. Siderosis: None. THIS IS AN ELECTRONICALLY VERIFIED FINAL REPORT 07/26/2024 1:08 PM - Electronically signed by Jose Shahid D.O. AP: MICHELLE Report ID: [id number] Reading Location: [place] [address] Procedure Note Jose Shahid, DO - 07/26/2024 EXAM DESCRIPTION: MRI BRAIN ALZHEIMER TX WO CONTRAST EXAMINATION: Magnetic resonance imaging (MRI) of the brain and brainstem without contrast. REASON FOR STUDY: Memory loss. Dementia, nonvascular etiology suspected, Post Lecanemab infusion, R/OARIA Post Lecanemab infusion, Infusion #10 on 07/07/24; R/O ARIA Dx:Alzheimer's disease with late onset TECHNIQUE: Multiplanar multi-weighted MRI of the brain [...] and siderosis (ARIA-H). COMPARISON: MRI brain dated 04/19/2024, 03/23/2024, 12/12/2023 and09/17/2022. FINDINGS: ASSESSMENT FOR ARIA: Prior FLAIR hyperintensities concerning for ARIA-E: None. New/incident FLAIR hyperintensities concerning for ARIA-E: None. Prior cerebral microhemorrhages: 2, the right frontal and right occipitalas seen previously. New/incident cerebral microhemorrhages (ARIA-H): None. Total cerebral microhemorrhages: 2 Prior siderosis: None. New/Incident siderosis (ARIA-H): None. There is no diffusion restriction to suggest acute/recent infarction. The subcortical periventricular white matter T2/FLAIR hyperintense signal inthe bilateral cerebral hemispheres is nonspecific but compatible with chronic microvascular ischemic type change in a patient of this age. IMPRESSION: ARIA: None. Microhemorrhages: No new microhemorrhages. Siderosis: None. THIS IS AN ELECTRONICALLY VERIFIED FINAL REPORT 07/26/2024 1:08 PM - Electronically signed by Jose Shahid D.O. AP: MICHELLE Report ID: [id number] Reading Location: [place] [address] Destiny Crane DIRECTOR ZONE IMG MRI PROCEDURES Fi nal Result from Last 3 Months Insurance UHC MEDICARE ADVANTAGE [employer] MED[employer]ARE ADVANTAGE Care Teams Property Condition Assessor Relationship Specialty Start Date End Date Nic Solorio DO PCP - General Internal Medicine 02/25/18
--- OUTSIDE RECORDS SUMMARY | 2024-08-07 14:06 | XMS_ITS | Encounter Summary ---
Author Organization [facility] Address [address] [place] [address] Phone Care Team Providers Care Customer Success Representative Name Role Phone Nic Solorio DO Primary Care Provider +1- [phone] Encounter Details Date Type Department Care Team (Late st Contact Info) Description 07/26/2024 Results Follow-Up [facility] [address] [facility] [address] Floor [address] [place] [address] Destiny Crane NP [facility] [place] [address] MRI Brain Alzheimer Tx WO Contrast Social History Tobacco Use Types Packs/Day Years Used Date Smoking Tobacco: Former Cigarettes Q uit: 06/17/1990 Smokeless Tobacco: Never Comments Unknown Sex and Gender Information Value Date Recorded Sex Assigned at Not on file 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 She may proceed with infusions as scheduled. documented in this encounter Plan of Treatment Not on file documented as of this encounter Visit Diagnoses Not on filedocumented in this encounter Care Teams Customer Success Representative Relationship Specialty Start Date End Date Nic Solorio DO PCP - General Internal Medicine 02/25/18 documented as of this encounter
--- OUTSIDE RECORDS SUMMARY | 2024-08-07 14:06 | XMS_ITS | Clinical Summary ---
Author Organization [facility] Address [address] [place] [address] Care Team Providers Care Product Inspection Coordinator Name Role Phone Lyndsey Nic Javier DO Primary Care Provider [phone] Source Comments [facility],non-owned Affiliates and Associated Physician Practices is amultiple site organization consisting of ambulatory clinics and hospital sitesin [place], [place], [place] and [place]. This disclosure is being madepursuant to the Care Everywhere program and may not contain all information available regarding this patient. Last updated 17.[facility] Allergies No known active allergies Medications * Be aware that medications may not be up to date on this document. Alwaysverify current medications with the patient. acetaminophen (Tylenol) 500 MG tablet Take 2 (two) tablets by mouth every 8 hours as needed Maximum allowable Acetaminophen amount = 4 Grams (4000 mg) / 24 hours. 5 Active galantamine (Razadyne) 8 MG tablet Take 1 (one) tablet by mouth 2 times daily with morning and evening meal 5 Active mirtazapine (Remeron) 7.5 MG tablet Take 1 (one) tablet by mouth at bedtime 5 Active vitamin D3 (Cholecalcifer ol) 25 MCG (1000 UNITS) tabletIndicati ons:Vitamin D Deficiency Take 1 (one) tablet by mouth once daily Reasons: Vitamin D Deficiency 90 tablet 5 Active oxyCODONE, immediate release, (Roxicodone) 5 MG tabletIndicati ons:Trauma Take 1 (one) tablet by mouth every 6 hours as needed for Pain 12 tablet 5 Active Additional Information Patient not taking.Reported on 07/18/2024 Active Problems Problem Noted Date Diagnosed Date Fall 06/12/2024 Subcutaneous hematoma 06/12/2024 Cervical cancer screening 01/23/2009 Overview (01/23/2009): 10/31/07 Breast cancer screening 01/23/2009 Overview (01/23/2009): 03/28/08 Normal Menopause Depression GERD (gastroesophageal reflux disease) Encounters Date Type Department Care Team Description 07/18/2024 11:05 AM CDT Office Visit [facility] - Urology [address] [place] [address] [address] [place] [address] Robb Herrera MD Hydronephrosis, right (Primary Dx) 07/18/2024 Travel 06/11/2024 11:02 PM CDT - 06/12/2024 2:17 PM CDT Emergency [facility] EMER[facility] DEPARTMENT [address] [place] [address] Nj Nicholson MD Wojcik, Brandon M, MD Trauma (Primary Dx); Recurrent falls; Pelvic hematoma in female Discharge Disposition: Home or Self Care 06/11/2024 Travel from Last 3 Months Immunizations Immunization Administration Dates Next Due PNEUMOCOCCAL PPSV23 10/31/2007 ZOSTER VACCINE, LIVE 05/29/2008 Social History Tobacco Use Types Packs/Day Years Used Date Smoking Tobacco: Former Smokeless Tobacco: Never Tobacco Cessation:Counseling Given: Not Answered Alcohol Use Standard Drinks/Week Comments Yes 0 (1 standard drink = 0.6 oz pur e alcohol) occasional Comments No Sex and Gender Information Value Date Recorded Sex Assigned at Not on file 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 Gender Identity Not on file Sexual Orientation Not on file Last Filed Vital Signs Vital Sign Reading Time Taken Comments Blood Pressure 150/82 07/18/2024 10:56 AM CDT Pulse 61 07/18/2024 10:56 AM CDT Temperature 36.9 C (98.5 F) 07/18/2024 10:56 AM CDT Respiratory Rate 17 07/18/2024 10:56 AM CDT Oxygen Saturation 98% 07/18/2024 10:56 AM CDT Inhaled Oxygen Concentration - - Weight 53.1 kg (117 lb) 07/18/2024 10:56 AM CDT Height 149.9 cm (4' 11) 07/18/2024 10:56 AM CDT Body Mass Index 23.63 07/18/2024 10:56 AM CDT Plan of Treatment Health Maintenance Due Date Last Done Comments BONE DENSITY TESTING 1940 DTAP/TDAP/TD VACCINES (1 - Tdap) 10/19/1959 ZOSTER VACCINE (2 of 3) 07/24/2008 05/29/2008 PNEUMOCOCCAL VACCINE 50+ (2 of 2 - PCV) 10/30/2008 10/31/2007 Respiratory Syncytial Virus (RSV) Vaccine Pt: or over 60 yrs (1 - 1-dose 75+ series) 10/19/2015 DEPRESSION SCREENING 02/09/2024 MEDICARE AWV CALENDAR YEAR 2024 COVID-19 VACCINE ( season) 2024 10/13/2023, 11/18/2022, 11/18/2021, Additional history exists INFLUENZA VACCINE Completed 10/13/2023, , 11/18/2021, Additional history exists HEPATITIS B VACCINE Aged Out No longe r eligible based on patient's age to complete this topic HIB VACCINE Aged Out No longer eligi ble based on patient's age to complete this topic HPV VACCINE Aged Out No longer eligi ble based on patient's age to complete this topic MENINGOCOCCAL (Group B) VACCINE SHARED DECISION-MAKING Aged Out No longer eligible based on patient's age to complete this topic MENINGOCOCCAL GROUPS A/C/Y/W VACCINE Aged Out No longer eligible based on patient's age to complete this topic Procedures Procedure Name Priority Date/Time Associated Diagnosis Comments URINALYSIS AUTO - POINT OF CARE (AMB) [facility] Routine 07/18/2024 11:06 AM CDT Hydronephrosis, right CARDIAC EKG ORDER 06/13/2024 11: 42 AM CDT CBC W AUTO DIFFERENTIAL STAT 06/12/2024 2:48 AM CDT TROPONIN-I HIGH SENSITIVE REFLEX 1HOUR Timed 06/12/2024 1:08 AM CDT URINE DRUG SCREEN IMMUNOASSAY STAT 06/12/2024 1:08 AM CDT EKG 12-LEAD STAT 06/12/2024 12:32 AM CDT Trauma BLOOD TYPE VERIFICATION STAT 06/12/2024 12:27 AM CDT TROPONIN-I HIGH SENSITIVE BASELINE + 1HR STAT 06/12/2024 12:[address] THORACIC SPINE WO CONTRAST STAT 06/11/2024 11:[address] LUMBAR SPINE WO CONTRAST STAT 06/11/2024 11:[address] CHEST ABDOMEN PELVIS W CONT STAT 06/11/2024 11:[address] CERVICAL SPINE WO CONTRAST STAT 06/11/2024 11:[address] HEAD WO CONTRAST STAT 06/11/2024 1 1:39 PM CDT Trauma XR CHEST 1VW PORTABLE STAT 06/11/2024 11:24 PM CDT Trauma XR PELVIS 1 OR 2VW STAT 06/11/2024 11 :23 PM CDT Trauma TYPE + SCREEN PANEL STAT 06/11/2024 1 1:17 PM CDT PTT [facility] STAT 06/11/2024 11:17 PM CDT PT-INR [facility] STAT 06/11/2024 11:17 PM CDT CBC W AUTO DIFFERENTIAL STAT 06/11/2024 11:17 PM CDT BASIC METABOLIC PANEL (CALCIUM TOTAL) STAT 06/11/2024 11:17 PM CDT ALCOHOL ETHYL BLOOD STAT 06/11/2024 1 1:17 PM CDT from Last 3 Months Results * URINALYSIS AUTO - POINT OF CARE (AMB) [facility] (07/18/2024 11:06 AM CDT) Glucose UA neg [facility] [address] Bilirubin UA POCT neg [facility] [address] Ketones UA POCT neg [facility] [address] Specific [place] UA 1.[address] [facility] [address] Blood Urine POCT neg [facility] [address] pH UA 6.0 [facility] [address] Protein UA +-15mg/dl [facility] [address] Urobilinogen UA 0.2mg/dl [facility] [address] Nitrite UA neg [facility] [address] WBC UA 1+70leu/u l [facility] [address] Urine URINE / Unknown 07/18/2024 1 1:06 AM CDT us Robb Herrera MD LAB - POINT OF CARE ORDER RENATO Final Result [address] [place] [address], [place] [phone] * CARDIAC EKG ORDER (06/13/2024 11:42 AM CDT) Narrative 06/13/2024 11:42 AM CDT Ordered by an unspecified provider. us Scanned Document CARDIAC SERVICES ORDERABLES Fin al Result * (ABNORMAL) CBC W AUTO DIFFERENTIAL (06/12/2024 2:48 AM CDT) Only the most recent of2 resultswithin the time period is included. WBC 6.0 4.0 - 10.7 x10E9/L 06/12/2024 3:00 AM CDT [facility] RBC Count 2.97(L) 3.90 - 5.20 x10E12/L 06/12/2024 3:00 AM [facility] Hemoglobin 8.9(L) 11.9 - 15.8 g/dL 06/12/2024 3:00 AM [facility] Hematocrit 26.6(L) 34.8 - 46.1 % 06/12/2024 3:00 AM [facility] MCV 89.6 80.0 - 98.0 fL 06/12/2024 3:00 AM [facility] MCH 30.0 26.7 - 33.6 pg 06/12/2024 3:00 AM [facility] MCHC 33.5 31.7 - 36.3 g/dL 06/12/2024 3:00 AM [facility] RDW-CV 13.2 11.3 - 14.8 % 06/12/2024 3:00 AM [facility] Platelet Count 181 150 - 420 x10E9/L 06/12/2024 3:00 AM [facility] MPV 10.8 7.8 - 11.4 fL 06/12/2024 3:00 AM [facility] Neutrophil % 74.8(H) 41.0 - 74.0 % 06/12/2024 3:00 AM [facility] Lymphocyte % 16.1(L) 17.0 - 47.0 % 06/12/2024 3:00 AM [facility] Monocyte % 8.0 3.0 - 11.0 % 06/12/2024 3:00 AM [facility] Eosinophil % 0.3 0.0 - 7.0 % 06/12/2024 3:00 AM [facility] Basophil % 0.5 0.0 - 1.6 % 06/12/2024 3:00 AM [facility] Immature Granulocytes % 0.3 0.0 - 1.0 % 06/12/2024 3:00 AM [facility] Neutrophil Absolute 4.51 1.60 - 7.50 x10E9/L 06/12/2024 3:00 AM [facility] Lymphocyte Absolute 0.97(L) 1.00 - 4.40 x10E9/L 06/12/2024 3:00 AM CDT [facility] Monocyte Absolute 0.48 0.15 - 1.00 x10E9/L 06/12/2024 3:00 AM CDT [facility] Eosinophil Absolute 0.02 0.00 - 0.60 x10E9/L 06/12/2024 3:00 AM CDT [facility] Basophil Absolute 0.03 0.00 - 0.13 x10E9/L 06/12/2024 3:[address] [facility] Blood BLOOD SPECIMEN / Unknown Venipuncture / Unknown 06/12/2024 2:48 AM CDT 06/12/2024 2:56 AM CDT Nj Nicholson MD LAB - HEMATOLOGY ORDERABLES F inal Result Performing Organization Address [facility]/ZIP Co de Phone Number [address] [address], [place] [phone] * TROPONIN-I HIGH SENSITIVE REFLEX 1HOUR (06/12/2024 1:08 AM CDT) [facility] Troponin I High Sensitive 4 <=14 ng/L 06/12/2024 1:59 AM [facility] Delta Troponin I HS 06/12/2024 1:[address] [facility] Comment:Delta value intentio venita not calculated. Baseline to 1 hour specimen collection interval exceeded. Blood BLOOD SPECIMEN / Unknown Venipuncture / Unknown 06/12/2024 1:08 AM CDT 06/12/2024 1:22 AM CDT us Nj Nicholson MD LAB - CHEMISTRY ORDERABLES Fi nal Result Performing Organization Address [facility]/ZIP Co de Phone Number [address] [address], [place] [phone] * (ABNORMAL) URINE DRUG SCREEN IMMUNOASSAY (06/12/2024 1:08 AM CDT) Pathologist [facility] Amphetamines Screen Urine Negative Negative : < 1000 ng/mL 06/12/2024 1:[address] [facility] Barbiturates Screen Urine Negative Negative : < 200 ng/mL 06/12/2024 1:44 AM [facility] Benzodiazepine Screen Urine Negative Negative : < 200 ng/mL 06/12/2024 1:44 AM [facility] Opiates Urine Positive(A) Negative : < 300 ng/mL 06/12/2024 1:44 AM [facility] Comment:Positive urine opiat e screening results should be confirmed by another generally accepted non-immunological method such as gas chromatography or mass spectrometry. Cocaine Metabolites Urine Negative Negative : < 300 ng/mL 06/12/2024 1:44 AM [facility] Phencyclidine Screen Urine Negative Negative : < 25 ng/ml 06/12/2024 1:44 AM [facility] Cannabinoids Screen Urine Negative Negative : <50 ng/mL 06/12/2024 1:44 AM [facility] Methadone Screen Urine Negative Negative : < 300 ng/mL 06/12/2024 1:44 AM [facility] Fentanyl Screen Urine Negative Negative : <1.5 ng/mL 06/12/2024 1:44 AM [facility] Urine URINE / Unknown Collection / Unknown 06/12/2024 1:08 AM CDT 06/12/2024 1:20 AM [facility] - 06/12/2024 1:44 AM CDT The Urine Toxicology Screening Panel does not screen for Propoxyphene, Meprobamate, Carisoprodol, Trazodone, [id number]-[id number]-[id number] medications and/or volatiles (Acetone, Isopropanol, Methanol or Ethylene Glycol). Ethanol, Salicylate, Acetaminophen, Tricyclic Antidepressants and several therapeutic drugs may be individually assayed in serum or plasma specimen. Toxicology testing by the [facility] is an aid to medical diagnosis and treatment of patients. No documented chain of custody was maintained. Results are intended to be used for clinical purposes only. us Nj Nicholson MD LAB - URINE CHEMISTRY ORDERAB LES Final Result [facility] [address] [place] [address], [place] [phone] * EKG 12-LEAD (06/12/2024 12:32 AM CDT) [facility] Ventricular Rate 70 BPM [facility] MUSE Atrial Rate 70 BPM [facility] MUSE P-R Interval 140 ms [facility] QRS Duration ms 88 ms [facility] MUSE Q-T Interval ms 432 ms [facility] QTC Calculation (Bezet) 466 ms [facility] MUSE Calculated R [place] -144 degrees [facility] MUSE Calculated T [place] 88 degrees [facility] MUSE Interpretation EKG SUSPECT ARM LEAD REVERSAL, INTERPRETATION ASSUMES NO REVERSAL NORMAL SINUS RHYTHM RIGHT SUPERIOR AXIS DEVIATION INFERIOR INFARCT , AGE UNDETERMINED NONSPECIFIC ST & T WAVE CHANGES ABNORMAL ECG NO PREVIOUS ECGS AVAILABLE Confirmed by ANJEL ELLIOTT MD ([id number]) on 06/14/2024 9:48:25 PM [facility] MUSE 06/12/2024 12:3 2 AM CDT 06/14/2024 9:48 PM CDT Nj Nicholson MD ECG ORDERABLES Edited Result - Final [facility] * TROPONIN-I HIGH SENSITIVE BASELINE + 1HR (06/12/2024 12:27 AM CDT) [facility] Troponin I High Sensitive 4 <=14 ng/L 06/12/2024 1:03 AM CDT [facility] Blood BLOOD SPECIMEN / Unknown Venipuncture / Unknown 06/12/2024 12:27 AM CDT 06/12/2024 12:31 AM CDT Nj Nicholson MD LAB - CHEMISTRY ORDERABLES Fi nal Result [address] [address], [place] [phone] * BLOOD TYPE VERIFICATION (06/12/2024 12:27 AM CDT) Pathologist [facility] ABO Rh O POS 06/12/2024 1:1 4 AM CDT [facility] BLOOD BANK LAB Blood Bank BLOOD SPECIMEN / Unknown Venipuncture / Unknown 06/12/2024 12:27 AM CDT 06/12/2024 12:43 AM CDT us Nj Nicholson MD LAB - BLOOD BANK ORDERABLES F inal Result [facility] LAB [address] [place] [address], [place] [phone] * CT CHEST ABDOMEN PELVIS W CONT - Abdomen-pelvis trauma, blunt or penetrating (06/11/2024 11:39 PM CDT) Anatomical Region Laterality Modality Chest, Abdomen, Pelvis Computed Tomography 06/11/2024 11:4 9 PM CDT Impressions 06/12/2024 7:28 AM CDT Impression: 1.No acute visceral or osseous injury identified in the chest, abdomen, or pelvis. 2.Multiple subcutaneous hematomas within the subcutaneous soft tissues of the left lower back and left lower flank/hip/gluteal regions. No active extravasation identified. 3.There is moderate right-sided hydronephrosis with associated right renal cortical thickening compared to the contralateral side. The transition is seen at the pelviureteric junction. No obstructing lesions could be seen. 4.Gallbladder sludge and/or small stones without signs of acute cholecystitis. 5.Diffuse thickening of the left greater than right adrenal glands. > Dictated by Nj Freeman MD (president trust company). I, Randy Castellon MD have personally reviewed and interpreted this examination/study. > Interpreting Provider: Randy Castellon MD on 06/12/2024 7:28 AM Narrative 06/12/2024 7:28 AM CDT PROCEDURE: CT CHEST ABDOMEN PELVIS W CONT, DATE/TIME OF EXAM: 06/11/2024 11:41 PM, LOCATION [facility] INDICATION: Trauma COMPARISON: None. TECHNIQUE: CT of the chest, abdomen, and pelvis was performed after the uneventful administration of 100 mL of Isovue 370 intravenous contrast according to standard protocol. Findings: Chest: Lower Neck and Axillae: Normal. Lungs: Mild subsegmental dependent atelectasis about the bilateral lungs. No pulmonary parenchymal or airway process is present. No suspicious pulmonary nodules are identified. No pleural fluid or pneumothorax is present. Heart and Pericardium: The cardiac chambers are normal in size. No pericardial fluid or thickening is present. Mediastinum and Kim: No mediastinal hemorrhage is present. No enlarged lymph nodes are present. Thoracic Vasculature: No vascular abnormality is present. Abdomen/pelvis: Liver: Normal. Gallbladder and Bile Ducts: Layering hyperdensity within the gallbladder may represent sludge and/or small stones. No gallbladder wall thickening or pericholecystic fluid. No intrahepatic biliary ductal dilatation. Spleen: Normal. Pancreas: Normal. Adrenals: Diffuse thickening of the left adrenal gland and to a lesser extent the right adrenal gland. Kidneys: There is contrast excretion into the bilateral collecting systems. Moderate right-sided hydronephrosis without discrete evidence of obstruction with associated right renal cortical thinning compared to the left kidney. Transition is noted in the uterine junction. There is a 3 cm partially exophytic left upper renal pole simple cyst. The renal sinus cysts are noted in the left side. Additional subcentimeter hypodensities within the bilateral kidneys are too small to characterize, but statistically likely represent additional renal cyst. No nephrolithiasis. Gastrointestinal: The stomach and visualized loops of large and small bowel are unremarkable. Large stool burden in the colon and rectum. The appendix is not seen; however, no inflammatory changes are seen in the right lower quadrant. Mesentery/Peritoneum/Retroperitoneum: No free intraperitoneal air. No free fluid in the abdomen or pelvis. Bladder: The bladder is distended with contrast. Reproductive Organs: The uterus is normal. Abdominal Vasculature: No vascular abnormality is present. Bones: Bone windows demonstrate no suspicious lytic or blastic lesions. The visible osseous structures are intact. Increased thoracic kyphosis with multilevel changes are seen in the spine. There is grade 1 anterolisthesis of L4 on L5. Soft tissues: There is a large hematoma within the subcutaneous soft tissues of the left lower back measuring up to 7.5 x 3.9 cm in greatest transaxial dimensions (series 8, image 14). Additional disseminating hematomas and contusions throughout the left lower flank and hip/gluteal region. No active extravasation identified. Procedure Note Randy Castellon MD - 06/12/2024 PROCEDURE: CT CHEST ABDOMEN PELVIS W CONT, DATE/TIME OF EXAM: 06/11/2024 11:41 PM, LOCATION [facility] INDICATION: Trauma COMPARISON: None. TECHNIQUE: CT of the chest, abdomen, and pelvis was performed after the uneventful administration of 100 mL of Isovue 370 intravenous contrast according to standard protocol. Findings: Chest: Lower Neck and Axillae: Normal. Lungs: Mild subsegmental dependent atelectasis about the bilateral lungs. No pulmonary parenchymal or airway process is present. No suspiciouspulmonary nodules are identified. No pleural fluid or pneumothorax is present. Heart and Pericardium: The cardiac chambers are normal in size. No pericardial fluid orthickening is present. Mediastinum and Kim: No mediastinal hemorrhage is present. No enlarged lymph nodes arepresent. Thoracic Vasculature: No vascular abnormality is present. Abdomen/pelvis: Liver: Normal. Gallbladder and Bile Ducts: Layering hyperdensity within the gallbladder may represent sludge and/or small stones. No gallbladder wall thickening or pericholecystic fluid.No intrahepatic biliary ductal dilatation. Spleen: Normal. Pancreas: Normal. Adrenals: Diffuse thickening of the left adrenal gland and to a lesser extent the right adrenal gland. Kidneys: There is contrast excretion into the bilateral collecting systems.Moderate right-sided hydronephrosis without discrete evidence of obstruction with associated right renal cortical thinning compared to the left kidney. Transition is noted in the uterine junction. There is a 3 cm partially exophytic left upper renal pole simple cyst. The renal sinus cysts are noted in the left side. Additional subcentimeter hypodensities withinthe bilateral kidneys are too small to characterize, but statisticallylikely represent additional renal cyst. No nephrolithiasis. Gastrointestinal: The stomach and visualized loops of large and small bowel areunremarkable. Large stool burden in the colon and rectum. The appendix is not seen; however, no inflammatory changes are seen in the right lower quadrant. Mesentery/Peritoneum/Retroperitoneum: No free intraperitoneal air. No free fluid in the abdomen or pelvis. Bladder: The bladder is distended with contrast. Reproductive Organs: The uterus is normal. Abdominal Vasculature: No vascular abnormality is present. Bones: Bone windows demonstrate no suspicious lytic or blastic lesions. The visible osseous structures are intact. Increased thoracic kyphosis with multilevel changes are seen in the spine. There is grade 1anterolisthesis of L4 on L5. Soft tissues: There is a large hematoma within the subcutaneous soft tissues of theleft lower back measuring up to 7.5 x 3.9 cm in greatest transaxialdimensions (series 8, image 14). Additional disseminating hematomas and contusions throughout the left lower flank and hip/gluteal region. No active extravasation identified. Impression: 1.No acute visceral or osseous injury identified in the chest, abdomen,or pelvis. 2.Multiple subcutaneous hematomas within the subcutaneous soft tissuesof the left lower back and left lower flank/hip/gluteal regions. No active extravasation identified. 3.There is moderate right-sided hydronephrosis with associated rightrenal cortical thickening compared to the contralateral side. The transitionis seen at the pelviureteric junction. No obstructing lesions could beseen. 4.Gallbladder sludge and/or small stones without signs of acute cholecystitis. 5.Diffuse thickening of the left greater than right adrenal glands. > Dictated by Nj Freeman MD (president trust [employer]). I, Randy Castellon MD have personally reviewed and interpreted this examination/study. > Interpreting Provider: Randy Castellon MD on 06/12/2024 7:28AM Nj Nicholson MD CT ORDERABLES Final Result * CT LUMBAR SPINE WO CONTRAST - T/L-spine trauma, Spine fracture (06/11/2024 11:39 PM CDT) Anatomical Region Laterality Modality Spine Computed Tomogra phy 06/11/2024 11:4 9 PM CDT Impressions 06/12/2024 9:37 AM CDT IMPRESSION: 1.No acute intracranial hemorrhage, midline shift, or significant mass effect. 2.There is a nonspecific lucent lesion along the parasagittal anterior frontal calvarium, (series 5, image 27). Additionally, diffuse osteopenia and subtle lucent/lytic lesions throughout the imaged axial and appendicular skeleton which are nonspecific. If there is clinical concern, PET/CT or a nuclear medicine bone scan could be obtained for further evaluation. 3.No evidence of acute fracture in the cervical, thoracic, or lumbar spine. 4.Multiple degenerative changes throughout the spine as detailed above. 5.Right hydronephrosis. Thickening of the adrenal glands, left more than right. 6.Please refer to the concurrent, dedicated body report for findings in the chest, abdomen, and pelvis Report dictated by Yue Turpin MD (president trust company). I, Alexis Pierce MD have personally reviewed and interpreted this examination/study. > Interpreting Provider: Alexis Pierce MD on 06/12/2024 9:37 AM Narrative 06/12/2024 9:37 AM CDT PROCEDURE: CT HEAD WO CONTRAST, CT LUMBAR SPINE WO CONTRAST, CT THORACIC SPINE WO CONTRAST, CT CERVICAL SPINE WO CONTRAST, DATE/TIME OF EXAM: 06/11/2024 11:41 PM, LOCATION [facility] INDICATION: Trauma EXAMINATION: 1.Computed tomography (CT) of the head without contrast 2.CT of the cervical spine without contrast 3.CT of the thoracic spine without contrast 4.CT of the lumbar spine without contrast ADDITIONAL CLINICAL INFORMATION: Ordering Provider Reason For Exam: Trauma. Technologist Note: None. Additional: 83 year old female who presented as a level 2 trauma following fall from 12 steps. Patient was walking up the steps of her house with her vacuum condenser cleaner when she fell backwards. She did hit her head but denies LOC. She is not amnestic to the event. Denies blood thinner use. They arrived without a backboard, without a cervical collar. Workup at OSH showed concern for expanding hematoma of left thigh for which she was transferred here. TECHNIQUE: CT of the head and cervical spine was performed without contrast according to standard protocol. Reformatted axial, sagittal, and coronal images of the thoracic and lumbar spine were obtained by the technologist from a concurrently performed body CT and sent to the workstation for review. CT dose reduction technique was used, including Automated Exposure Control. COMPARISON: No prior study is available for comparison at the time of this dictation. FINDINGS: Head: Accounting for the presence of intravascular contrast which reduces the sensitivity to detect subtle intracranial hemorrhage, no distinct acute intra- or extra-axial fluid collections are identified. There is mild cerebral volume loss with associated ex vacuo ventricular dilatation. The basilar cisterns are patent. No mass effect or midline shift is seen. The gutierrez-white matter differentiation is normal. Periventricular white matter hypoattenuation is indicative of chronic small vessel ischemic disease. There is vascular calcification of the carotid siphons. No acute calvarial fracture is identified. There is a nonspecific lucent lesion along the parasagittal anterior frontal calvarium, (series 5, image 27). If there is clinical concern, PET/CT or a nuclear medicine bone scan could be obtained for further evaluation. Other than bilateral cataract extractions, the orbits appear normal. The patient is edentulous with lower jaw dentures in place. There is mild paranasal sinus disease. The mastoid air cells are clear. No soft tissue abnormality is identified. Cervical spine: There is mild anterolisthesis of C6 on C7 and C7 on T1. Minimal retrolisthesis of C5 on C6. The bones are diffusely osteopenic. There are scattered lucent/lytic lesions throughout the imaged cervical spine, which could be seen in the setting of metabolic/anemia or metastatic bone disease. Clinical correlation and if warranted, PET CT or nuclear bone scan could be obtained for further evaluation. Vertebral bodies are normal in height without evidence of acute fracture. Other than middle atlantoaxial joint osteoarthritis, the craniocervical junction appears normal. There is advanced degenerative disc disease with Schmorl's nodes at multiple levels. No high-grade central canal stenosis is seen. There are varying degrees of advanced facet osteoarthritis. There are varying degrees of up to moderate uncovertebral joint osteoarthritis with the same degree of neural foraminal stenosis most notable at right C3-C4 and right C4-C5. There is atherosclerotic calcification of the carotid bifurcations. Thoracic spine: There is exaggerated kyphosis centered at T6. The bones are diffusely osteopenic. Subtle lucent lesions throughout the imaged thoracic spine and the ribs which could represent metabolic/anemia or metastatic bone disease, in the appropriate clinical setting. No pathologic fractures are identified. If there is clinical concern, additional imaging could be obtained for further evaluation. Vertebral bodies are normal in height without evidence of acute fracture. There is advanced degenerative disc disease. No central canal stenosis is seen. There is mild facet osteoarthritis at multiple levels. There are varying degrees of neural foraminal stenosis at multiple levels. There is subsegmental atelectasis in the dependent portions of the lung bases. Diffuse thickening of the right greater than left adrenal glands without discrete nodularity. Lumbar spine: Grade 1 anterolisthesis of L4 on L5. Diffuse osteopenia and subtle lucent lesions throughout the imaged lumbar spine and the bones of the pelvis which are nonspecific. Vertebral bodies are normal in height without evidence of acute fracture. There is advanced degenerative disc disease. Up to severe spinal canal stenosis at L4-L5 secondary to anterolisthesis of L4. Mild to moderate spinal canal stenosis at multiple other levels, due to degenerative disc disease. There is advanced facet osteoarthritis, worst at L4-L5. There are varying degrees of neural foraminal stenosis at multiple levels. There is atherosclerotic calcification of the abdominal aorta and its branch vessels. Right obstructive uropathy with hydropelvis and hydronephrosis. Brain injury guidelines: Skull fracture: No Subdural hematoma: No subdural hematoma. Epidural hematoma: No epidural hematoma. Intraparenchymal hemorrhage: No intraparenchymal hemorrhage. Subarachnoid hemorrhage: No subarachnoid hemorrhage. Intraventricular hemorrhage: No. Midline shift: No. Procedure Note Alexis Pierce MD - 06/12/2024 PROCEDURE: CT HEAD WO CONTRAST, CT LUMBAR SPINE WO CONTRAST, CTTHORACIC SPINE WO CONTRAST, CT CERVICAL SPINE WO CONTRAST, DATE/TIME OF EXAM: 06/11/2024 11:41 PM, LOCATION [facility] INDICATION: Trauma EXAMINATION: 1.Computed tomography (CT) of the head without contrast 2.CT of the cervical spine without contrast 3.CT of the thoracic spine without contrast 4.CT of the lumbar spine without contrast ADDITIONAL CLINICAL INFORMATION: Ordering Provider Reason For Exam: Trauma. Technologist Note: None. Additional: 83 year old female who presented as a level 2 traumafollowing fall from 12 steps. Patient was walking up the steps of her house withher vacuum condenser cleaner when she fell backwards. She did hit her head but denies LOC. She is not amnestic to the event. Denies blood thinner use. They arrived without a backboard, without a cervical collar. Workup at OSH showed concern for expanding hematoma of left thigh for which she was transferred here. TECHNIQUE: CT of the head and cervical spine was performed withoutcontrast according to standard protocol. Reformatted axial, sagittal, and coronal images of the thoracic and lumbar spine were obtained by thetechnologist from a concurrently performed body CT and sent to the workstation for review. CT dose reduction technique was used, including AutomatedExposure Control. COMPARISON: No prior study is available for comparison at the time ofthis dictation. FINDINGS: Head: Accounting for the presence of intravascular contrast which reduces the sensitivity to detect subtle intracranial hemorrhage, no distinct acute intra- or extra-axial fluid collections are identified. There is mild cerebral volume loss with associated ex vacuo ventricular dilatation.The basilar cisterns are patent. No mass effect or midline shift is seen.The gutierrez-white matter differentiation is normal. Periventricular whitematter hypoattenuation is indicative of chronic small vessel ischemic disease. There is vascular calcification of the carotid siphons. No acute calvarial fracture is identified. There is a nonspecific lucent lesion along the parasagittal anterior frontal calvarium, (series 5,image 27). If there is clinical concern, PET/CT or a nuclear medicine bonescan could be obtained for further evaluation. Other than bilateral cataract extractions, the orbits appear normal. The patient is edentulous with lower jaw dentures in place. There is mild paranasal sinus disease. The mastoid air cells are clear. No soft tissue abnormality is identified. Cervical spine: There is mild anterolisthesis of C6 on C7 and C7 on T1. Minimal retrolisthesis of C5 on C6. The bones are diffusely osteopenic. Thereare scattered lucent/lytic lesions throughout the imaged cervical spine,which could be seen in the setting of metabolic/anemia or metastatic bone disease. Clinical correlation and if warranted, PET CT or nuclear bonescan could be obtained for further evaluation. Vertebral bodies are normal in height without evidence of acute fracture. Other than middleatlantoaxial joint osteoarthritis, the craniocervical junction appears normal. Thereis advanced degenerative disc disease with Schmorl's nodes at multiplelevels. No high-grade central canal stenosis is seen. There are varying degreesof advanced facet osteoarthritis. There are varying degrees of up tomoderate uncovertebral joint osteoarthritis with the same degree of neuralforaminal stenosis most notable at right C3-C4 and right C4-C5. There is atherosclerotic calcification of the carotid bifurcations. Thoracic spine: There is exaggerated kyphosis centered at T6. The bones are diffusely osteopenic. Subtle lucent lesions throughout the imaged thoracic spineand the ribs which could represent metabolic/anemia or metastatic bonedisease, in the appropriate clinical setting. No pathologic fractures are identified. If there is clinical concern, additional imaging could be obtained for further evaluation. Vertebral bodies are normal in height without evidence of acute fracture. There is advanced degenerative disc disease. No central canal stenosis is seen. There is mild facet osteoarthritis at multiple levels. There are varying degrees of neural foraminal stenosis at multiple levels. There is subsegmental atelectasisin the dependent portions of the lung bases. Diffuse thickening of theright greater than left adrenal glands without discrete nodularity. Lumbar spine: Grade 1 anterolisthesis of L4 on L5. Diffuse osteopenia and subtlelucent lesions throughout the imaged lumbar spine and the bones of the pelvis which are nonspecific. Vertebral bodies are normal in height without evidence of acute fracture. There is advanced degenerative disc disease.Up to severe spinal canal stenosis at L4-L5 secondary to anterolisthesis of L4. Mild to moderate spinal canal stenosis at multiple other levels, dueto degenerative disc disease. There is advanced facet osteoarthritis, worstat L4-L5. There are varying degrees of neural foraminal stenosis atmultiple levels. There is atherosclerotic calcification of the abdominal aortaand its branch vessels. Right obstructive uropathy with hydropelvis and hydronephrosis. Brain injury guidelines: Skull fracture: No Subdural hematoma: No subdural hematoma. Epidural hematoma: No epidural hematoma. Intraparenchymal hemorrhage: No intraparenchymal hemorrhage. Subarachnoid hemorrhage: No subarachnoid hemorrhage. Intraventricular hemorrhage: No. Midline shift: No. IMPRESSION: 1.No acute intracranial hemorrhage, midline shift, or significant mass effect. 2.There is a nonspecific lucent lesion along the parasagittal anterior frontal calvarium, (series 5, image 27). Additionally, diffuseosteopenia and subtle lucent/lytic lesions throughout the imaged axial and appendicular skeleton which are nonspecific. If there is clinicalconcern, PET/CT or a nuclear medicine bone scan could be obtained for further evaluation. 3.No evidence of acute fracture in the cervical, thoracic, or lumbarspine. 4.Multiple degenerative changes throughout the spine as detailed above. 5.Right hydronephrosis. Thickening of the adrenal glands, left more than right. 6.Please refer to the concurrent, dedicated body report for findings inthe chest, abdomen, and pelvis Report dictated by Yue Turpin MD ([employer]). I, Alexis Pierce MD have personally reviewed and interpretedthis examination/study. > Interpreting Provider: Alexis Pierce MD on 06/12/2024 9:37 AM us Nj Nicholson MD CT ORDERABLES Final Result * CT THORACIC SPINE WO CONTRAST - T/L-spine trauma, spine fracture (06/11/2024 11:39 PM CDT) Anatomical Region Laterality Modality Spine Computed Tomogra phy 06/11/2024 11:4 9 PM CDT Impressions 06/12/2024 9:37 AM CDT IMPRESSION: 1.No acute intracranial hemorrhage, midline shift, or significant mass effect. 2.There is a nonspecific lucent lesion along the parasagittal anterior frontal calvarium, (series 5, image 27). Additionally, diffuse osteopenia and subtle lucent/lytic lesions throughout the imaged axial and appendicular skeleton which are nonspecific. If there is clinical concern, PET/CT or a nuclear medicine bone scan could be obtained for further evaluation. 3.No evidence of acute fracture in the cervical, thoracic, or lumbar spine. 4.Multiple degenerative changes throughout the spine as detailed above. 5.Right hydronephrosis. Thickening of the adrenal glands, left more than right. 6.Please refer to the concurrent, dedicated body report for findings in the chest, abdomen, and pelvis Report dictated by Yue Turpin MD ([employer]). IAlexis MD have personally reviewed and interpreted this examination/study. > Interpreting Provider: Alexis Pierce MD on 06/12/2024 9:37 AM Narrative 06/12/2024 9:37 AM CDT PROCEDURE: CT HEAD WO CONTRAST, CT LUMBAR SPINE WO CONTRAST, CT THORACIC SPINE WO CONTRAST, CT CERVICAL SPINE WO CONTRAST, DATE/TIME OF EXAM: 06/11/2024 11:41 PM, LOCATION [facility] INDICATION: Trauma EXAMINATION: 1.Computed tomography (CT) of the head without contrast 2.CT of the cervical spine without contrast 3.CT of the thoracic spine without contrast 4.CT of the lumbar spine without contrast ADDITIONAL CLINICAL INFORMATION: Ordering Provider Reason For Exam: Trauma. Technologist Note: None. Additional: 83 year old female who presented as a level 2 trauma following fall from 12 steps. Patient was walking up the steps of her house with her vacuum condenser cleaner when she fell backwards. She did hit her head but denies LOC. She is not amnestic to the event. Denies blood thinner use. They arrived without a backboard, without a cervical collar. Workup at OSH showed concern for expanding hematoma of left thigh for which she was transferred here. TECHNIQUE: CT of the head and cervical spine was performed without contrast according to standard protocol. Reformatted axial, sagittal, and coronal images of the thoracic and lumbar spine were obtained by the technologist from a concurrently performed body CT and sent to the workstation for review. CT dose reduction technique was used, including Automated Exposure Control. COMPARISON: No prior study is available for comparison at the time of this dictation. FINDINGS: Head: Accounting for the presence of intravascular contrast which reduces the sensitivity to detect subtle intracranial hemorrhage, no distinct acute intra- or extra-axial fluid collections are identified. There is mild cerebral volume loss with associated ex vacuo ventricular dilatation. The basilar cisterns are patent. No mass effect or midline shift is seen. The gutierrez-white matter differentiation is normal. Periventricular white matter hypoattenuation is indicative of chronic small vessel ischemic disease. There is vascular calcification of the carotid siphons. No acute calvarial fracture is identified. There is a nonspecific lucent lesion along the parasagittal anterior frontal calvarium, (series 5, image 27). If there is clinical concern, PET/CT or a nuclear medicine bone scan could be obtained for further evaluation. Other than bilateral cataract extractions, the orbits appear normal. The patient is edentulous with lower jaw dentures in place. There is mild paranasal sinus disease. The mastoid air cells are clear. No soft tissue abnormality is identified. Cervical spine: There is mild anterolisthesis of C6 on C7 and C7 on T1. Minimal retrolisthesis of C5 on C6. The bones are diffusely osteopenic. There are scattered lucent/lytic lesions throughout the imaged cervical spine, which could be seen in the setting of metabolic/anemia or metastatic bone disease. Clinical correlation and if warranted, PET CT or nuclear bone scan could be obtained for further evaluation. Vertebral bodies are normal in height without evidence of acute fracture. Other than middle atlantoaxial joint osteoarthritis, the craniocervical junction appears normal. There is advanced degenerative disc disease with Schmorl's nodes at multiple levels. No high-grade central canal stenosis is seen. There are varying degrees of advanced facet osteoarthritis. There are varying degrees of up to moderate uncovertebral joint osteoarthritis with the same degree of neural foraminal stenosis most notable at right C3-C4 and right C4-C5. There is atherosclerotic calcification of the carotid bifurcations. Thoracic spine: There is exaggerated kyphosis centered at T6. The bones are diffusely osteopenic. Subtle lucent lesions throughout the imaged thoracic spine and the ribs which could represent metabolic/anemia or metastatic bone disease, in the appropriate clinical setting. No pathologic fractures are identified. If there is clinical concern, additional imaging could be obtained for further evaluation. Vertebral bodies are normal in height without evidence of acute fracture. There is advanced degenerative disc disease. No central canal stenosis is seen. There is mild facet osteoarthritis at multiple levels. There are varying degrees of neural foraminal stenosis at multiple levels. There is subsegmental atelectasis in the dependent portions of the lung bases. Diffuse thickening of the right greater than left adrenal glands without discrete nodularity. Lumbar spine: Grade 1 anterolisthesis of L4 on L5. Diffuse osteopenia and subtle lucent lesions throughout the imaged lumbar spine and the bones of the pelvis which are nonspecific. Vertebral bodies are normal in height without evidence of acute fracture. There is advanced degenerative disc disease. Up to severe spinal canal stenosis at L4-L5 secondary to anterolisthesis of L4. Mild to moderate spinal canal stenosis at multiple other levels, due to degenerative disc disease. There is advanced facet osteoarthritis, worst at L4-L5. There are varying degrees of neural foraminal stenosis at multiple levels. There is atherosclerotic calcification of the abdominal aorta and its branch vessels. Right obstructive uropathy with hydropelvis and hydronephrosis. Brain injury guidelines: Skull fracture: No Subdural hematoma: No subdural hematoma. Epidural hematoma: No epidural hematoma. Intraparenchymal hemorrhage: No intraparenchymal hemorrhage. Subarachnoid hemorrhage: No subarachnoid hemorrhage. Intraventricular hemorrhage: No. Midline shift: No. Procedure Note Alexis Pierce MD - 06/12/2024 PROCEDURE: CT HEAD WO CONTRAST, CT LUMBAR SPINE WO CONTRAST, CTTHORACIC SPINE WO CONTRAST, CT CERVICAL SPINE WO CONTRAST, DATE/TIME OF EXAM: 06/11/2024 11:41 PM, LOCATION [facility] INDICATION: Trauma EXAMINATION: 1.Computed tomography (CT) of the head without contrast 2.CT of the cervical spine without contrast 3.CT of the thoracic spine without contrast 4.CT of the lumbar spine without contrast ADDITIONAL CLINICAL INFORMATION: Ordering Provider Reason For Exam: Trauma. Technologist Note: None. Additional: 83 year old female who presented as a level 2 traumafollowing fall from 12 steps. Patient was walking up the steps of her house withher vacuum condenser cleaner when she fell backwards. She did hit her head but denies LOC. She is not amnestic to the event. Denies blood thinner use. They arrived without a backboard, without a cervical collar. Workup at OSH showed concern for expanding hematoma of left thigh for which she was transferred here. TECHNIQUE: CT of the head and cervical spine was performed withoutcontrast according to standard protocol. Reformatted axial, sagittal, and coronal images of the thoracic and lumbar spine were obtained by thetechnologist from a concurrently performed body CT and sent to the workstation for review. CT dose reduction technique was used, including AutomatedExposure Control. COMPARISON: No prior study is available for comparison at the time ofthis dictation. FINDINGS: Head: Accounting for the presence of intravascular contrast which reduces the sensitivity to detect subtle intracranial hemorrhage, no distinct acute intra- or extra-axial fluid collections are identified. There is mild cerebral volume loss with associated ex vacuo ventricular dilatation.The basilar cisterns are patent. No mass effect or midline shift is seen.The gutierrez-white matter differentiation is normal. Periventricular whitematter hypoattenuation is indicative of chronic small vessel ischemic disease. There is vascular calcification of the carotid siphons. No acute calvarial fracture is identified. There is a nonspecific lucent lesion along the parasagittal anterior frontal calvarium, (series 5,image 27). If there is clinical concern, PET/CT or a nuclear medicine bonescan could be obtained for further evaluation. Other than bilateral cataract extractions, the orbits appear normal. The patient is edentulous with lower jaw dentures in place. There is mild paranasal sinus disease. The mastoid air cells are clear. No soft tissue abnormality is identified. Cervical spine: There is mild anterolisthesis of C6 on C7 and C7 on T1. Minimal retrolisthesis of C5 on C6. The bones are diffusely osteopenic. Thereare scattered lucent/lytic lesions throughout the imaged cervical spine,which could be seen in the setting of metabolic/anemia or metastatic bone disease. Clinical correlation and if warranted, PET CT or nuclear bonescan could be obtained for further evaluation. Vertebral bodies are normal in height without evidence of acute fracture. Other than middleatlantoaxial joint osteoarthritis, the craniocervical junction appears normal. Thereis advanced degenerative disc disease with Schmorl's nodes at multiplelevels. No high-grade central canal stenosis is seen. There are varying degreesof advanced facet osteoarthritis. There are varying degrees of up tomoderate uncovertebral joint osteoarthritis with the same degree of neuralforaminal stenosis most notable at right C3-C4 and right C4-C5. There is atherosclerotic calcification of the carotid bifurcations. Thoracic spine: There is exaggerated kyphosis centered at T6. The bones are diffusely osteopenic. Subtle lucent lesions throughout the imaged thoracic spineand the ribs which could represent metabolic/anemia or metastatic bonedisease, in the appropriate clinical setting. No pathologic fractures are identified. If there is clinical concern, additional imaging could be obtained for further evaluation. Vertebral bodies are normal in height without evidence of acute fracture. There is advanced degenerative disc disease. No central canal stenosis is seen. There is mild facet osteoarthritis at multiple levels. There are varying degrees of neural foraminal stenosis at multiple levels. There is subsegmental atelectasisin the dependent portions of the lung bases. Diffuse thickening of theright greater than left adrenal glands without discrete nodularity. Lumbar spine: Grade 1 anterolisthesis of L4 on L5. Diffuse osteopenia and subtlelucent lesions throughout the imaged lumbar spine and the bones of the pelvis which are nonspecific. Vertebral bodies are normal in height without evidence of acute fracture. There is advanced degenerative disc disease.Up to severe spinal canal stenosis at L4-L5 secondary to anterolisthesis of L4. Mild to moderate spinal canal stenosis at multiple other levels, dueto degenerative disc disease. There is advanced facet osteoarthritis, worstat L4-L5. There are varying degrees of neural foraminal stenosis atmultiple levels. There is atherosclerotic calcification of the abdominal aortaand its branch vessels. Right obstructive uropathy with hydropelvis and hydronephrosis. Brain injury guidelines: Skull fracture: No Subdural hematoma: No subdural hematoma. Epidural hematoma: No epidural hematoma. Intraparenchymal hemorrhage: No intraparenchymal hemorrhage. Subarachnoid hemorrhage: No subarachnoid hemorrhage. Intraventricular hemorrhage: No. Midline shift: No. IMPRESSION: 1.No acute intracranial hemorrhage, midline shift, or significant mass effect. 2.There is a nonspecific lucent lesion along the parasagittal anterior frontal calvarium, (series 5, image 27). Additionally, diffuseosteopenia and subtle lucent/lytic lesions throughout the imaged axial and appendicular skeleton which are nonspecific. If there is clinicalconcern, PET/CT or a nuclear medicine bone scan could be obtained for further evaluation. 3.No evidence of acute fracture in the cervical, thoracic, or lumbarspine. 4.Multiple degenerative changes throughout the spine as detailed above. 5.Right hydronephrosis. Thickening of the adrenal glands, left more than right. 6.Please refer to the concurrent, dedicated body report for findings inthe chest, abdomen, and pelvis Report dictated by Yue Turpin MD ([employer]). Alexis Mcclain MD have personally reviewed and interpretedthis examination/study. > Interpreting Provider: Alexis Pierce MD on 06/12/2024 9:37 AM us Nj Nicholson MD CT ORDERABLES Final Result * CT CERVICAL SPINE WO CONTRAST - C-Spine Trauma, Spine fracture (06/11/2024 11:39 PM CDT) Anatomical Region Laterality Modality Spine Computed Tomogra phy 06/11/2024 11:4 9 PM CDT Impressions 06/12/2024 9:37 AM CDT IMPRESSION: 1.No acute intracranial hemorrhage, midline shift, or significant mass effect. 2.There is a nonspecific lucent lesion along the parasagittal anterior frontal calvarium, (series 5, image 27). Additionally, diffuse osteopenia and subtle lucent/lytic lesions throughout the imaged axial and appendicular skeleton which are nonspecific. If there is clinical concern, PET/CT or a nuclear medicine bone scan could be obtained for further evaluation. 3.No evidence of acute fracture in the cervical, thoracic, or lumbar spine. 4.Multiple degenerative changes throughout the spine as detailed above. 5.Right hydronephrosis. Thickening of the adrenal glands, left more than right. 6.Please refer to the concurrent, dedicated body report for findings in the chest, abdomen, and pelvis Report dictated by Yue Turpin MD ([employer]). Alexis Mcclain MD have personally reviewed and interpreted this examination/study. > Interpreting Provider: Alexis Pierce MD on 06/12/2024 9:37 AM Narrative 06/12/2024 9:37 AM CDT PROCEDURE: CT HEAD WO CONTRAST, CT LUMBAR SPINE WO CONTRAST, CT THORACIC SPINE WO CONTRAST, CT CERVICAL SPINE WO CONTRAST, DATE/TIME OF EXAM: 06/11/2024 11:41 PM, LOCATION [facility] INDICATION: Trauma EXAMINATION: 1.Computed tomography (CT) of the head without contrast 2.CT of the cervical spine without contrast 3.CT of the thoracic spine without contrast 4.CT of the lumbar spine without contrast ADDITIONAL CLINICAL INFORMATION: Ordering Provider Reason For Exam: Trauma. Technologist Note: None. Additional: 83 year old female who presented as a level 2 trauma following fall from 12 steps. Patient was walking up the steps of her house with her vacuum condenser cleaner when she fell backwards. She did hit her head but denies LOC. She is not amnestic to the event. Denies blood thinner use. They arrived without a backboard, without a cervical collar. Workup at OSH showed concern for expanding hematoma of left thigh for which she was transferred here. TECHNIQUE: CT of the head and cervical spine was performed without contrast according to standard protocol. Reformatted axial, sagittal, and coronal images of the thoracic and lumbar spine were obtained by the technologist from a concurrently performed body CT and sent to the workstation for review. CT dose reduction technique was used, including Automated Exposure Control. COMPARISON: No prior study is available for comparison at the time of this dictation. FINDINGS: Head: Accounting for the presence of intravascular contrast which reduces the sensitivity to detect subtle intracranial hemorrhage, no distinct acute intra- or extra-axial fluid collections are identified. There is mild cerebral volume loss with associated ex vacuo ventricular dilatation. The basilar cisterns are patent. No mass effect or midline shift is seen. The gutierrez-white matter differentiation is normal. Periventricular white matter hypoattenuation is indicative of chronic small vessel ischemic disease. There is vascular calcification of the carotid siphons. No acute calvarial fracture is identified. There is a nonspecific lucent lesion along the parasagittal anterior frontal calvarium, (series 5, image 27). If there is clinical concern, PET/CT or a nuclear medicine bone scan could be obtained for further evaluation. Other than bilateral cataract extractions, the orbits appear normal. The patient is edentulous with lower jaw dentures in place. There is mild paranasal sinus disease. The mastoid air cells are clear. No soft tissue abnormality is identified. Cervical spine: There is mild anterolisthesis of C6 on C7 and C7 on T1. Minimal retrolisthesis of C5 on C6. The bones are diffusely osteopenic. There are scattered lucent/lytic lesions throughout the imaged cervical spine, which could be seen in the setting of metabolic/anemia or metastatic bone disease. Clinical correlation and if warranted, PET CT or nuclear bone scan could be obtained for further evaluation. Vertebral bodies are normal in height without evidence of acute fracture. Other than middle atlantoaxial joint osteoarthritis, the craniocervical junction appears normal. There is advanced degenerative disc disease with Schmorl's nodes at multiple levels. No high-grade central canal stenosis is seen. There are varying degrees of advanced facet osteoarthritis. There are varying degrees of up to moderate uncovertebral joint osteoarthritis with the same degree of neural foraminal stenosis most notable at right C3-C4 and right C4-C5. There is atherosclerotic calcification of the carotid bifurcations. Thoracic spine: There is exaggerated kyphosis centered at T6. The bones are diffusely osteopenic. Subtle lucent lesions throughout the imaged thoracic spine and the ribs which could represent metabolic/anemia or metastatic bone disease, in the appropriate clinical setting. No pathologic fractures are identified. If there is clinical concern, additional imaging could be obtained for further evaluation. Vertebral bodies are normal in height without evidence of acute fracture. There is advanced degenerative disc disease. No central canal stenosis is seen. There is mild facet osteoarthritis at multiple levels. There are varying degrees of neural foraminal stenosis at multiple levels. There is subsegmental atelectasis in the dependent portions of the lung bases. Diffuse thickening of the right greater than left adrenal glands without discrete nodularity. Lumbar spine: Grade 1 anterolisthesis of L4 on L5. Diffuse osteopenia and subtle lucent lesions throughout the imaged lumbar spine and the bones of the pelvis which are nonspecific. Vertebral bodies are normal in height without evidence of acute fracture. There is advanced degenerative disc disease. Up to severe spinal canal stenosis at L4-L5 secondary to anterolisthesis of L4. Mild to moderate spinal canal stenosis at multiple other levels, due to degenerative disc disease. There is advanced facet osteoarthritis, worst at L4-L5. There are varying degrees of neural foraminal stenosis at multiple levels. There is atherosclerotic calcification of the abdominal aorta and its branch vessels. Right obstructive uropathy with hydropelvis and hydronephrosis. Brain injury guidelines: Skull fracture: No Subdural hematoma: No subdural hematoma. Epidural hematoma: No epidural hematoma. Intraparenchymal hemorrhage: No intraparenchymal hemorrhage. Subarachnoid hemorrhage: No subarachnoid hemorrhage. Intraventricular hemorrhage: No. Midline shift: No. Procedure Note Alexis Pierce MD - 06/12/2024 PROCEDURE: CT HEAD WO CONTRAST, CT LUMBAR SPINE WO CONTRAST, CTTHORACIC SPINE WO CONTRAST, CT CERVICAL SPINE WO CONTRAST, DATE/TIME OF EXAM: 06/11/2024 11:41 PM, LOCATION [facility] INDICATION: Trauma EXAMINATION: 1.Computed tomography (CT) of the head without contrast 2.CT of the cervical spine without contrast 3.CT of the thoracic spine without contrast 4.CT of the lumbar spine without contrast ADDITIONAL CLINICAL INFORMATION: Ordering Provider Reason For Exam: Trauma. Technologist Note: None. Additional: 83 year old female who presented as a level 2 traumafollowing fall from 12 steps. Patient was walking up the steps of her house withher vacuum condenser cleaner when she fell backwards. She did hit her head but denies LOC. She is not amnestic to the event. Denies blood thinner use. They arrived without a backboard, without a cervical collar. Workup at OSH showed concern for expanding hematoma of left thigh for which she was transferred here. TECHNIQUE: CT of the head and cervical spine was performed withoutcontrast according to standard protocol. Reformatted axial, sagittal, and coronal images of the thoracic and lumbar spine were obtained by thetechnologist from a concurrently performed body CT and sent to the workstation for review. CT dose reduction technique was used, including AutomatedExposure Control. COMPARISON: No prior study is available for comparison at the time ofthis dictation. FINDINGS: Head: Accounting for the presence of intravascular contrast which reduces the sensitivity to detect subtle intracranial hemorrhage, no distinct acute intra- or extra-axial fluid collections are identified. There is mild cerebral volume loss with associated ex vacuo ventricular dilatation.The basilar cisterns are patent. No mass effect or midline shift is seen.The gutierrez-white matter differentiation is normal. Periventricular whitematter hypoattenuation is indicative of chronic small vessel ischemic disease. There is vascular calcification of the carotid siphons. No acute calvarial fracture is identified. There is a nonspecific lucent lesion along the parasagittal anterior frontal calvarium, (series 5,image 27). If there is clinical concern, PET/CT or a nuclear medicine bonescan could be obtained for further evaluation. Other than bilateral cataract extractions, the orbits appear normal. The patient is edentulous with lower jaw dentures in place. There is mild paranasal sinus disease. The mastoid air cells are clear. No soft tissue abnormality is identified. Cervical spine: There is mild anterolisthesis of C6 on C7 and C7 on T1. Minimal retrolisthesis of C5 on C6. The bones are diffusely osteopenic. Thereare scattered lucent/lytic lesions throughout the imaged cervical spine,which could be seen in the setting of metabolic/anemia or metastatic bone disease. Clinical correlation and if warranted, PET CT or nuclear bonescan could be obtained for further evaluation. Vertebral bodies are normal in height without evidence of acute fracture. Other than middleatlantoaxial joint osteoarthritis, the craniocervical junction appears normal. Thereis advanced degenerative disc disease with Schmorl's nodes at multiplelevels. No high-grade central canal stenosis is seen. There are varying degreesof advanced facet osteoarthritis. There are varying degrees of up tomoderate uncovertebral joint osteoarthritis with the same degree of neuralforaminal stenosis most notable at right C3-C4 and right C4-C5. There is atherosclerotic calcification of the carotid bifurcations. Thoracic spine: There is exaggerated kyphosis centered at T6. The bones are diffusely osteopenic. Subtle lucent lesions throughout the imaged thoracic spineand the ribs which could represent metabolic/anemia or metastatic bonedisease, in the appropriate clinical setting. No pathologic fractures are identified. If there is clinical concern, additional imaging could be obtained for further evaluation. Vertebral bodies are normal in height without evidence of acute fracture. There is advanced degenerative disc disease. No central canal stenosis is seen. There is mild facet osteoarthritis at multiple levels. There are varying degrees of neural foraminal stenosis at multiple levels. There is subsegmental atelectasisin the dependent portions of the lung bases. Diffuse thickening of theright greater than left adrenal glands without discrete nodularity. Lumbar spine: Grade 1 anterolisthesis of L4 on L5. Diffuse osteopenia and subtlelucent lesions throughout the imaged lumbar spine and the bones of the pelvis which are nonspecific. Vertebral bodies are normal in height without evidence of acute fracture. There is advanced degenerative disc disease.Up to severe spinal canal stenosis at L4-L5 secondary to anterolisthesis of L4. Mild to moderate spinal canal stenosis at multiple other levels, dueto degenerative disc disease. There is advanced facet osteoarthritis, worstat L4-L5. There are varying degrees of neural foraminal stenosis atmultiple levels. There is atherosclerotic calcification of the abdominal aortaand its branch vessels. Right obstructive uropathy with hydropelvis and hydronephrosis. Brain injury guidelines: Skull fracture: No Subdural hematoma: No subdural hematoma. Epidural hematoma: No epidural hematoma. Intraparenchymal hemorrhage: No intraparenchymal hemorrhage. Subarachnoid hemorrhage: No subarachnoid hemorrhage. Intraventricular hemorrhage: No. Midline shift: No. IMPRESSION: 1.No acute intracranial hemorrhage, midline shift, or significant mass effect. 2.There is a nonspecific lucent lesion along the parasagittal anterior frontal calvarium, (series 5, image 27). Additionally, diffuseosteopenia and subtle lucent/lytic lesions throughout the imaged axial and appendicular skeleton which are nonspecific. If there is clinicalconcern, PET/CT or a nuclear medicine bone scan could be obtained for further evaluation. 3.No evidence of acute fracture in the cervical, thoracic, or lumbarspine. 4.Multiple degenerative changes throughout the spine as detailed above. 5.Right hydronephrosis. Thickening of the adrenal glands, left more than right. 6.Please refer to the concurrent, dedicated body report for findings inthe chest, abdomen, and pelvis Report dictated by Yue Turpin MD ([employer]). I, Alexis Pierce MD have personally reviewed and interpretedthis examination/study. > Interpreting Provider: Alexis Pierce MD on 06/12/2024 9:37 AM us Nj Nicholson MD CT ORDERABLES Final Result * CT HEAD WO CONTRAST - Head Trauma, CSF leak, mental status changes (06/11/2024 11:39 PM CDT) Anatomical Region Laterality Modality Head Computed Tomogra phy 06/11/2024 11:4 9 PM CDT Impressions 06/12/2024 9:37 AM CDT IMPRESSION: 1.No acute intracranial hemorrhage, midline shift, or significant mass effect. 2.There is a nonspecific lucent lesion along the parasagittal anterior frontal calvarium, (series 5, image 27). Additionally, diffuse osteopenia and subtle lucent/lytic lesions throughout the imaged axial and appendicular skeleton which are nonspecific. If there is clinical concern, PET/CT or a nuclear medicine bone scan could be obtained for further evaluation. 3.No evidence of acute fracture in the cervical, thoracic, or lumbar spine. 4.Multiple degenerative changes throughout the spine as detailed above. 5.Right hydronephrosis. Thickening of the adrenal glands, left more than right. 6.Please refer to the concurrent, dedicated body report for findings in the chest, abdomen, and pelvis Report dictated by Yue Turpin MD ([employer]). I, Alexis Pierce MD have personally reviewed and interpreted this examination/study. > Interpreting Provider: Alexis Pierce MD on 06/12/2024 9:37 AM Narrative 06/12/2024 9:37 AM CDT PROCEDURE: CT HEAD WO CONTRAST, CT LUMBAR SPINE WO CONTRAST, CT THORACIC SPINE WO CONTRAST, CT CERVICAL SPINE WO CONTRAST, DATE/TIME OF EXAM: 06/11/2024 11:41 PM, LOCATION [facility] INDICATION: Trauma EXAMINATION: 1.Computed tomography (CT) of the head without contrast 2.CT of the cervical spine without contrast 3.CT of the thoracic spine without contrast 4.CT of the lumbar spine without contrast ADDITIONAL CLINICAL INFORMATION: Ordering Provider Reason For Exam: Trauma. Technologist Note: None. Additional: 83 year old female who presented as a level 2 trauma following fall from 12 steps. Patient was walking up the steps of her house with her vacuum condenser cleaner when she fell backwards. She did hit her head but denies LOC. She is not amnestic to the event. Denies blood thinner use. They arrived without a backboard, without a cervical collar. Workup at OSH showed concern for expanding hematoma of left thigh for which she was transferred here. TECHNIQUE: CT of the head and cervical spine was performed without contrast according to standard protocol. Reformatted axial, sagittal, and coronal images of the thoracic and lumbar spine were obtained by the technologist from a concurrently performed body CT and sent to the workstation for review. CT dose reduction technique was used, including Automated Exposure Control. COMPARISON: No prior study is available for comparison at the time of this dictation. FINDINGS: Head: Accounting for the presence of intravascular contrast which reduces the sensitivity to detect subtle intracranial hemorrhage, no distinct acute intra- or extra-axial fluid collections are identified. There is mild cerebral volume loss with associated ex vacuo ventricular dilatation. The basilar cisterns are patent. No mass effect or midline shift is seen. The gutierrez-white matter differentiation is normal. Periventricular white matter hypoattenuation is indicative of chronic small vessel ischemic disease. There is vascular calcification of the carotid siphons. No acute calvarial fracture is identified. There is a nonspecific lucent lesion along the parasagittal anterior frontal calvarium, (series 5, image 27). If there is clinical concern, PET/CT or a nuclear medicine bone scan could be obtained for further evaluation. Other than bilateral cataract extractions, the orbits appear normal. The patient is edentulous with lower jaw dentures in place. There is mild paranasal sinus disease. The mastoid air cells are clear. No soft tissue abnormality is identified. Cervical spine: There is mild anterolisthesis of C6 on C7 and C7 on T1. Minimal retrolisthesis of C5 on C6. The bones are diffusely osteopenic. There are scattered lucent/lytic lesions throughout the imaged cervical spine, which could be seen in the setting of metabolic/anemia or metastatic bone disease. Clinical correlation and if warranted, PET CT or nuclear bone scan could be obtained for further evaluation. Vertebral bodies are normal in height without evidence of acute fracture. Other than middle atlantoaxial joint osteoarthritis, the craniocervical junction appears normal. There is advanced degenerative disc disease with Schmorl's nodes at multiple levels. No high-grade central canal stenosis is seen. There are varying degrees of advanced facet osteoarthritis. There are varying degrees of up to moderate uncovertebral joint osteoarthritis with the same degree of neural foraminal stenosis most notable at right C3-C4 and right C4-C5. There is atherosclerotic calcification of the carotid bifurcations. Thoracic spine: There is exaggerated kyphosis centered at T6. The bones are diffusely osteopenic. Subtle lucent lesions throughout the imaged thoracic spine and the ribs which could represent metabolic/anemia or metastatic bone disease, in the appropriate clinical setting. No pathologic fractures are identified. If there is clinical concern, additional imaging could be obtained for further evaluation. Vertebral bodies are normal in height without evidence of acute fracture. There is advanced degenerative disc disease. No central canal stenosis is seen. There is mild facet osteoarthritis at multiple levels. There are varying degrees of neural foraminal stenosis at multiple levels. There is subsegmental atelectasis in the dependent portions of the lung bases. Diffuse thickening of the right greater than left adrenal glands without discrete nodularity. Lumbar spine: Grade 1 anterolisthesis of L4 on L5. Diffuse osteopenia and subtle lucent lesions throughout the imaged lumbar spine and the bones of the pelvis which are nonspecific. Vertebral bodies are normal in height without evidence of acute fracture. There is advanced degenerative disc disease. Up to severe spinal canal stenosis at L4-L5 secondary to anterolisthesis of L4. Mild to moderate spinal canal stenosis at multiple other levels, due to degenerative disc disease. There is advanced facet osteoarthritis, worst at L4-L5. There are varying degrees of neural foraminal stenosis at multiple levels. There is atherosclerotic calcification of the abdominal aorta and its branch vessels. Right obstructive uropathy with hydropelvis and hydronephrosis. Brain injury guidelines: Skull fracture: No Subdural hematoma: No subdural hematoma. Epidural hematoma: No epidural hematoma. Intraparenchymal hemorrhage: No intraparenchymal hemorrhage. Subarachnoid hemorrhage: No subarachnoid hemorrhage. Intraventricular hemorrhage: No. Midline shift: No. Procedure Note Alexis Pierce MD - 06/12/2024 PROCEDURE: CT HEAD WO CONTRAST, CT LUMBAR SPINE WO CONTRAST, CTTHORACIC SPINE WO CONTRAST, CT CERVICAL SPINE WO CONTRAST, DATE/TIME OF EXAM: 06/11/2024 11:41 PM, LOCATION [facility] INDICATION: Trauma EXAMINATION: 1.Computed tomography (CT) of the head without contrast 2.CT of the cervical spine without contrast 3.CT of the thoracic spine without contrast 4.CT of the lumbar spine without contrast ADDITIONAL CLINICAL INFORMATION: Ordering Provider Reason For Exam: Trauma. Technologist Note: None. Additional: 83 year old female who presented as a level 2 traumafollowing fall from 12 steps. Patient was walking up the steps of her house withher vacuum condenser cleaner when she fell backwards. She did hit her head but denies LOC. She is not amnestic to the event. Denies blood thinner use. They arrived without a backboard, without a cervical collar. Workup at OSH showed concern for expanding hematoma of left thigh for which she was transferred here. TECHNIQUE: CT of the head and cervical spine was performed withoutcontrast according to standard protocol. Reformatted axial, sagittal, and coronal images of the thoracic and lumbar spine were obtained by thetechnologist from a concurrently performed body CT and sent to the workstation for review. CT dose reduction technique was used, including AutomatedExposure Control. COMPARISON: No prior study is available for comparison at the time ofthis dictation. FINDINGS: Head: Accounting for the presence of intravascular contrast which reduces the sensitivity to detect subtle intracranial hemorrhage, no distinct acute intra- or extra-axial fluid collections are identified. There is mild cerebral volume loss with associated ex vacuo ventricular dilatation.The basilar cisterns are patent. No mass effect or midline shift is seen.The gutierrez-white matter differentiation is normal. Periventricular whitematter hypoattenuation is indicative of chronic small vessel ischemic disease. There is vascular calcification of the carotid siphons. No acute calvarial fracture is identified. There is a nonspecific lucent lesion along the parasagittal anterior frontal calvarium, (series 5,image 27). If there is clinical concern, PET/CT or a nuclear medicine bonescan could be obtained for further evaluation. Other than bilateral cataract extractions, the orbits appear normal. The patient is edentulous with lower jaw dentures in place. There is mild paranasal sinus disease. The mastoid air cells are clear. No soft tissue abnormality is identified. Cervical spine: There is mild anterolisthesis of C6 on C7 and C7 on T1. Minimal retrolisthesis of C5 on C6. The bones are diffusely osteopenic. Thereare scattered lucent/lytic lesions throughout the imaged cervical spine,which could be seen in the setting of metabolic/anemia or metastatic bone disease. Clinical correlation and if warranted, PET CT or nuclear bonescan could be obtained for further evaluation. Vertebral bodies are normal in height without evidence of acute fracture. Other than middleatlantoaxial joint osteoarthritis, the craniocervical junction appears normal. Thereis advanced degenerative disc disease with Schmorl's nodes at multiplelevels. No high-grade central canal stenosis is seen. There are varying degreesof advanced facet osteoarthritis. There are varying degrees of up tomoderate uncovertebral joint osteoarthritis with the same degree of neuralforaminal stenosis most notable at right C3-C4 and right C4-C5. There is atherosclerotic calcification of the carotid bifurcations. Thoracic spine: There is exaggerated kyphosis centered at T6. The bones are diffusely osteopenic. Subtle lucent lesions throughout the imaged thoracic spineand the ribs which could represent metabolic/anemia or metastatic bonedisease, in the appropriate clinical setting. No pathologic fractures are identified. If there is clinical concern, additional imaging could be obtained for further evaluation. Vertebral bodies are normal in height without evidence of acute fracture. There is advanced degenerative disc disease. No central canal stenosis is seen. There is mild facet osteoarthritis at multiple levels. There are varying degrees of neural foraminal stenosis at multiple levels. There is subsegmental atelectasisin the dependent portions of the lung bases. Diffuse thickening of theright greater than left adrenal glands without discrete nodularity. Lumbar spine: Grade 1 anterolisthesis of L4 on L5. Diffuse osteopenia and subtlelucent lesions throughout the imaged lumbar spine and the bones of the pelvis which are nonspecific. Vertebral bodies are normal in height without evidence of acute fracture. There is advanced degenerative disc disease.Up to severe spinal canal stenosis at L4-L5 secondary to anterolisthesis of L4. Mild to moderate spinal canal stenosis at multiple other levels, dueto degenerative disc disease. There is advanced facet osteoarthritis, worstat L4-L5. There are varying degrees of neural foraminal stenosis atmultiple levels. There is atherosclerotic calcification of the abdominal aortaand its branch vessels. Right obstructive uropathy with hydropelvis and hydronephrosis. Brain injury guidelines: Skull fracture: No Subdural hematoma: No subdural hematoma. Epidural hematoma: No epidural hematoma. Intraparenchymal hemorrhage: No intraparenchymal hemorrhage. Subarachnoid hemorrhage: No subarachnoid hemorrhage. Intraventricular hemorrhage: No. Midline shift: No. IMPRESSION: 1.No acute intracranial hemorrhage, midline shift, or significant mass effect. 2.There is a nonspecific lucent lesion along the parasagittal anterior frontal calvarium, (series 5, image 27). Additionally, diffuseosteopenia and subtle lucent/lytic lesions throughout the imaged axial and appendicular skeleton which are nonspecific. If there is clinicalconcern, PET/CT or a nuclear medicine bone scan could be obtained for further evaluation. 3.No evidence of acute fracture in the cervical, thoracic, or lumbarspine. 4.Multiple degenerative changes throughout the spine as detailed above. 5.Right hydronephrosis. Thickening of the adrenal glands, left more than right. 6.Please refer to the concurrent, dedicated body report for findings inthe chest, abdomen, and pelvis Report dictated by Yue Turpin MD (president trust company). Alexis Mcclain MD have personally reviewed and interpretedthis examination/study. > Interpreting Provider: Alexis Pierce MD on 06/12/2024 9:37 AM Nj Nicholson MD CT ORDERABLES Final Result * XR CHEST 1VW PORTABLE (06/11/2024 11:24 PM CDT) Anatomical Region Laterality Modality Chest Digital Radiogra phy 06/11/2024 11:2 6 PM CDT Narrative 06/12/2024 10:15 AM CDT PROCEDURE: XR CHEST 1VW PORTABLE, DATE/TIME OF EXAM: 06/11/2024 11:24 PM, LOCATION [facility] INDICATION: T14.90XA: Trauma ADDITIONAL CLINICAL INFORMATION: Ordering Provider Reason For Exam: Technologist Note: Additional: COMPARISON: None. FINDINGS/IMPRESSION: No focal consolidation, pleural effusion, or pneumothorax. The heart is enlarged, the appearance of which may be due in part to portable AP projection technique. The pulmonary vasculature is within normal limits. The mediastinal silhouette is normal. No acute osseous abnormality. > Dictated by Yue Turpin MD (president trust company) Joi Mcclain MD have personally reviewed and interpreted this examination/study. > Interpreting Provider: Joi Prince MD on 06/12/2024 10:15 AM Procedure Note Joi Prince MD - 06/12/2024 PROCEDURE: XR CHEST 1VW PORTABLE, DATE/TIME OF EXAM: 06/11/2024 11:24PM, LOCATION [facility] INDICATION: T14.90XA: Trauma ADDITIONAL CLINICAL INFORMATION: Ordering Provider Reason For Exam: Technologist Note: Additional: COMPARISON: None. FINDINGS/IMPRESSION: No focal consolidation, pleural effusion, or pneumothorax. The heart is enlarged, the appearance of which may be due in part to portable AP projection technique. The pulmonary vasculature is within normal limits. The mediastinal silhouette is normal. No acute osseous abnormality. > Dictated by Yue Turpin MD (president trust company) Joi Mcclain MD have personally reviewed and interpreted this examination/study. > Interpreting Provider: Joi Prince MD on 06/12/2024 10:15 AM Nj Nicholson MD DIAGNOSTIC IMAGING ORDERABLES Final Result * XR PELVIS 1 OR 2VW (06/11/2024 11:23 PM CDT) Anatomical Region Laterality Modality Pelvis Digital Radiogra phy 06/11/2024 11:2 3 PM CDT Impressions 06/12/2024 10:19 AM CDT IMPRESSION: No acute fracture identified. Report dictated by Yue Turpin MD (president trust company). Joi Mcclain MD have personally reviewed and interpreted this examination/study. > Interpreting Provider: Joi Prince MD on 06/12/2024 10:19 AM Narrative 06/12/2024 10:19 AM CDT PROCEDURE: XR PELVIS 1 OR 2VW, DATE/TIME OF EXAM: 06/11/2024 11:23 PM, LOCATION [facility] INDICATION: T14.90XA: Trauma ADDITIONAL CLINICAL INFORMATION: Ordering Provider Reason For Exam: Technologist Note: Additional: COMPARISON: None. FINDINGS: Contrast is present in the urinary bladder and bilateral collecting systems. Portions of the soft tissues and the extreme right bony structures are burned-out due to high x-ray dose. No acute fracture is identified. The femoral heads appear well-seated within their respective acetabula. The pubic symphysis is intact. Bone density and texture are normal. The sacroiliac joints are normal. Procedure Note Joi Prince MD - 06/12/2024 PROCEDURE: XR PELVIS 1 OR 2VW, DATE/TIME OF EXAM: 06/11/2024 11:23 PM, LOCATION [facility] INDICATION: T14.90XA: Trauma ADDITIONAL CLINICAL INFORMATION: Ordering Provider Reason For Exam: Technologist Note: Additional: COMPARISON: None. FINDINGS: Contrast is present in the urinary bladder and bilateral collecting systems. Portions of the soft tissues and the extreme right bony structures are burned-out due to high x-ray dose. No acute fracture is identified. The femoral heads appear well-seated within their respective acetabula. The pubic symphysis is intact. Bone density and texture are normal. The sacroiliac joints are normal. IMPRESSION: No acute fracture identified. Report dictated by Yue Turpin MD (president trust company). I, Joi Prince MD have personally reviewed and interpreted this examination/study. > Interpreting Provider: Joi Prince MD on 06/12/2024 10:19 AM Nj Nicholson MD DIAGNOSTIC IMAGING ORDERABLES Final Result * PTT [facility] (06/11/2024 11:17 PM CDT) APTT 25.4 23.0 - 38.4 Seconds 06/11/2024 11:[address] [facility] Comment:Suggested therapeuti c range for full dose I.V. unfractionated heparin therapy for venous thromboembolism is 71 to 109 seconds. Blood BLOOD SPECIMEN / Unknown Venipuncture / Unknown 06/11/2024 11:17 PM CDT 06/11/2024 11:23 PM CDT Nj Nicholson MD LAB - COAGULATION ORDERABLES Final Result [facility] [address] [place] [address], [place] [phone] * PT-INR [facility] (06/11/2024 11:17 PM CDT) PT 13.6 12.1 - 14.8 Seconds 06/11/2024 11:[address] [facility] INR 1.1 See Comment 06/11/2024 11:[address] [facility] Comment:The suggested therap eutic range for standard coumadin (warfarin) therapy is an INR of 2.0-3.0. For high-risk patients (Mechanical Mitral Valve Prosthesis, etc.), the suggested prophylactic therapeutic range is an INR of 2.5-3.5. Blood BLOOD SPECIMEN / Unknown Venipuncture / Unknown 06/11/2024 11:17 PM CDT 06/11/2024 11:23 PM CDT us Nj Nicholson MD LAB - COAGULATION ORDERABLES Final Result Performing Organization Address City/[facility]/ZIP Co de Phone Number [facility] [address] [place] [address], [place] [phone] * TYPE + SCREEN PANEL (06/11/2024 11:17 PM CDT) [facility] Antibody Screen NEG 12:23 AM CDT [facility] BLOOD BANK LAB ABO Rh O POS 06/12/2024 12:23 AM CDT [facility] BLOOD B[facility] LAB Blood Bank BLOOD SPECIMEN / Unknown Venipuncture / Unknown 06/11/2024 11:17 PM CDT 06/11/2024 11:31 PM CDT us Nj Nicholson MD LAB - BLOOD BANK ORDERABLES F inal Result Performing Organization Address [facility]/ZIP Co de Phone Number [facility] BLOOD BANK LAB [address] [place] [address], [place] [phone] * (ABNORMAL) BASIC METABOLIC PANEL (CALCIUM TOTAL) (06/11/2024 11:17 PM CDT) [facility] BUN 15 7 - 26 mg/dL 06/11/2024 11:48 PM [facility] Creatinine 0.82 0.56 - 0.96 mg/dL 06/11/2024 11:48 PM [facility] Sodium 142 136 - 145 mmol/L 06/11/2024 11:[address] [facility] Potassium 4.1 3.5 - 4.5 mmol/L 06/11/2024 11:48 PM [facility] Chloride 108(H) 98 - 107 mmol/L 06/11/2024 11:48 PM [facility] CO2 23 22 - 29 mmol/L 06/11/2024 11:48 PM T [facility] Glucose 134(H) 70 - 99 mg/dL 06/11/2024 11:48 PM [facility] Calcium 8.3(L) 8.4 - 10.2 mg/dL 06/11/2024 11:[address] [facility] Anion Gap 11 6 - 16 06/11/2024 11:[address] [facility] BUN/Creatinine Ratio 18 7 - 23 06/11/2024 11:[address] [facility] Osmolality Calculated 297(H) 275 - 295 mOsm/kg 06/11/2024 11:48 PM [facility] eGFR by CKD-EPI 71(L) >=90 mL/min/1.7 3 m2 06/11/2024 11:[address] [facility] Blood BLOOD SPECIMEN / Unknown Venipuncture / Unknown 06/11/2024 11:17 PM CDT 06/11/2024 11:23 PM CDT us Nj Nicholson MD LAB - CHEMISTRY ORDERABLES Fi nal Result [facility] [address] [place] [address], [place] [phone] * ALCOHOL ETHYL BLOOD (06/11/2024 11:17 PM CDT) Ethanol (mg/dL) <10 <10 mg/dL 11:[address] [facility] Ethanol Calculated (g/dL) <0.010 <=0.010 g/dL 06/11/2024 11:[address] [facility] Blood BLOOD SPECIMEN / Unknown Venipuncture / Unknown 06/11/2024 11:17 PM CDT 06/11/2024 11:[address] [facility] - 06/11/2024 11:48 PM CDT Ethanol Interp <10: None Detected. Depression of REGULATORY AFFAIRS CONSULTANT: >100 mg/dl Potentially Critical: >250 mg/dl Potentially Fatal >400 mg/dl Ethanol in the patient's blood will contribute to the osmolar gap. Ethanol's contribution to the osmolar gap can be estimated by dividing the concentration of ethanol in mg/dL by 4.6. This test is for clinical use only and does not equal a BANDAR for legal purposes. us Nj Nicholson MD LAB - CHEMISTRY ORDERABLES Fi nal Result [facility] [address] [place] [address], [place] [phone] from Last [address] [facility] MANAGED MEDICARE ADV [facility] MANA[facility]ED MEDICARE ADV Advance Directives * Full Code (Latest Code Status on File) Date Activated Date Inactivated Comments 06/12/2024 12:46 AM 06/12/2024 3:18 PM Care Teams Product Inspection Coordinator Relationship Specialty Start Date End Date Nic Solorio DO [address] [place] [address] PCP - General Internal Medicine 06/12/24
--- OUTSIDE RECORDS SUMMARY | 2024-08-07 14:06 | XMS_ITS | Encounter Summary ---
Author Organization [facility] Address [address] [place] [address] Care Team Providers Care Medical Sales Consultant Name Role Phone Nic Solorio DO Primary Care Provider [phone] Reason for Referral * Diagnostic Imaging (Routine) - Closed Specialty Diagnoses / Procedures Referred By Kenny t Referred To Contact Diagnoses Toe infection Injury of left toe, initial encounter Procedures XR Toe Left 2 or More Views Jessica Alvarado NP [address] [address] Phone: tel: fax: [facility] Referral ID Status Reason Start Date Expiration Date Visits Re quested Visits Authorized [id number] Closed 08/06/2024 09/05/2025 1 1 Reason for Visit * Reason Comments Toe Pain Patient her for toe on left foot. Its red swollen and painful. She hit her toe when walking weeks ago. Toe has gotten worse this past week. 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 I strive to provide you with EXCELLENT service. You may receive a survey after your visit today. If you cannot rate your experience as EXCELLENT, please let us know how we can improve and better meet your needs. Thank you for choosing [facility]! It was my pleasure to see you today, I hope you feel better soon! Jessica Alvarado DITCH WORKER * Attachments The following attachments cannot be sent through Care Everywhere. * Foot Contusion (AfterCare(R) Instructions(ER/ED)) (Icelandic) * Cellulitis (AfterCare(R) Instructions(ER/ED)) (Icelandic) documented in this encounter Ordered Prescriptions Prescription Sig Dispense Quantity Refills Last Filled Start Date End Date cephalexin (KEFLEX) 500 mg capsule Take 1 capsule (500 mg total) by mouth 4 (four) times a day for 7 days 28 capsule 08/06/2024 5 documented in this encounter Progress Notes * Jessica Alvarado, CINDER DUMP CRANE OPERATOR - 08/06/2024 10:45 AM CDT Images from the original note were not included. Subjective/Objective Patient ID: Deirdre Caruso is a 83 y.o. female. This patient has verbally consented to recording this visit in order to utilize AI technology in generating this note. Chief Complaint Toe Pain (Patient her for toe on left foot. Its red swollen and painful. She hit her toe when walking weeks ago. Toe has gotten worse this past week. ) History of Present Illness Deirdre Caruso is an 83 year old female who presents with a painful toe injury. She is accompanied by her . She received a pedicure at a new location, reports she believes an infection started after the pedicure. The condition has worsened recently. Patient reports she has stubbed her toe twice in the lastfew weeks. The toe currently shows no pain and she can bend it without discomfort. A neighbor, who is a nurse, advised her to seek medical attention due to the toe's appearance. She has an appointment with a inclusion special educator scheduled for August 16. There is no fever present. Review of Systems All other systems reviewed and are negative. Physical Exam EXTREMITIES: Toe appears bruised and/or infected. Left third toe is warm to touch without drainage.Bruising likely over the PIP joint. Physical Exam Vitals: 08/06/24 1021 BP: 162/60 BP Location: Right arm Patient Position: Sitting Pulse: 71 Resp: 18 Temp: 36.7 ??C (98 ??F) TempSrc: Temporal SpO2: 99% Weight: 52.2 kg (115 lb) Height: 157.5 cm (5' 2) No results found. No past medical history on file. Current Outpatient Medications: galantamine (RAZADYNE) 8 mg tablet, Take 1 tablet (8 mg total) by mouth 2 (two) times a day, Disp: 60 tablet, Rfl: 11 mirtazapine (REMERON) 7.5 mg tablet, Take 1 tablet (7.5 mg total) by mouth nightly, Disp: , Rfl: cephalexin (KEFLEX) 500 mg capsule, Take 1 capsule (500 mg total) by mouth 4 (four) times a day for7 days, Disp: 28 capsule, Rfl: 0 No Known Allergies Social History Tobacco Use Smoking status: Former Current packs/day: 0.00 Types: Cigarettes Quit date: 06/17/1990 Years since quittin.1 Smokeless tobacco: Never Substance and Sexual Activity Drug use: Not on file Sexual activity: Not on file Alcohol Use: Not on file Past Surgical History: Procedure Laterality Date LUMBAR PUNCTURE WO INJECTION, DIAGNOSTIC N/A 05/21/2022 Procedures Assessment/Plan Results No results found for this or any previous visit (from the past 4 hours). Assessment & Plan Toe injury with possible infection or fracture Differential includes bruising, infection, or fracture. Possible osteomyelitis if infection has reached the bone. Lack of pain may indicate reduced sensation. - Order x-ray to assess for fracture or osteomyelitis. - Prescribe antibiotics for potential infection. - Advise return for x-ray without appointment. - Instruct to request x-ray CD for inclusion special educator. Follow-up Scheduled inclusion special educator appointment on the . X-ray results crucial for consultation. - Ensure x-ray completed before inclusion special educator appointment. - Advise to take x-ray CD to inclusion special educator. Diagnoses and all orders for this visit: Toe infection (Primary) Comments: left third toe Orders: - XR Toe Left 2 or More Views; Future Injury of left toe, initial encounter Comments: left third toe Orders: - XR Toe Left 2 or More Views; Future Other orders - cephalexin (KEFLEX) 500 mg capsule; Take 1 capsule (500 mg total) by mouth 4 (four) times a day for 7 days Disposition Treatment plan including expectations, follow up, and return precautions discussed with patient/parent, verbalizes understanding. Medication dosage, use, and potential adverse reactions discussed with patient/parent. Advised to follow up with PCP if symptoms do not resolve as expected or sooner if condition worsens. Signs/symptoms warranting ER evaluation reviewed. Patient and/or guardian was given an opportunity to ask questions, questions answered. Jessica Alvarado NP documented in this encounter Plan of Treatment Pending Results Name Type Priority Associated Diagnoses Date /Time XR Toe Left 2 or More Views Imaging Schedule ANGI, Read ANGI (Appt Today, Awaiting Results) Toe infection Injury of left toe, initial encounter 08/07/2024 10:46 AM CDT Scheduled Orders Name Type Priority Associated Diagnoses Orde r Schedule XR Toe Left 2 or More Views Imaging Schedule ANGI, Read ANGI (Appt Today, Awaiting Results) Toe infection Injury of left toe, initial encounter Expected: 08/06/2024, Expires: 08/06/2025 documented as of this encounter Visit Diagnoses Diagnosis Toe infection- Primary Injury of left toe, initial encounter documented in this encounter Care Teams Medical Sales Consultant Relationship Specialty Start Date End Date Nic Solorio DO PCP - General Internal Medicine 02/25/18 documented as of this encounter
--- OUTSIDE RECORDS SUMMARY | 2024-08-07 14:06 | XMS_ITS | Clinical Summary ---
Author Organization [facility] [place] [address] Care Team Providers Care Survey Worker Name Role Phone Nic Solorio DO Primary Care Provider [phone]- [phone] Allergies No known active allergies Medications galantamine [...] Description 08/07/2024 10:35 AM CDT Ancillary Procedure [facility] Imaging at [address] [address] Arrived 08/06/2024 10:45 AM CDT Office Visit 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) (Primary Dx) 07/26/2024 11:16 AM CDT - 07/26/2024 11:59 PM CDT Hospital Encounter [facility] [address] [place] [address] Alzheimer's disease with late onset (CODE) (HCC) Discharge Disposition: Discharge to home or self care 07/26/2024 Results Follow-Up [facility] [address] [place] [address] Destiny Crane NP MRI Brain Alzheimer Tx WO Contrast 07/24/2024 Telephone [facility] General Neurology [address] [facility] [facility] 6th [address] [place] [address] Cecilia Londono PA Lecanemab PA Renewal 07/20/2024 4:00 PM CDT Office Visit [facility] [address] [facility] 7th Floor [facility] [place] [address] Cecilia Londono PA Alzheimer's disease (HCC) (Primary Dx) 07/19/2024 Telephone [facility] [address] [facility] [address] [place] [phone] Deven Sun RN 07/07/2024 11:30 AM CDT Infusion [facility] [address] [facility] [address] [place] [address] Alzheimer's disease with late onset (CODE) (HCC) (Primary Dx) 06/23/2024 11:30 AM CDT Infusion [facility] [address] [facility] [address] [place] [address] Alzheimer's disease with late onset (CODE) (HCC) (Primary Dx) 06/13/2024 Telephone [facility] [address] [place] [address] Simona Swift RN 06/12/[address] [facility] [address] [place] [address] Drive [address] [place] [address] Unknown, Notinfile 06/02/2024 1:30 PM CDT Infusion [address] [place] [address] Alzheimer's disease with late onset (CODE) (HCC) (Primary Dx) 05/19/2024 1:00 PM CDT Infusion [address] [place] [address] Alzheimer's disease with late onset (CODE) (HCC) (Primary Dx) from Last 3 Months Surgical History Surgery Date Site/Laterality Comments LUMBAR PUNCTURE WO INJECTION, DIAGNOSTIC 05/21/2022 N/A Social History Tobacco Use Types Packs/Day Years Used Date Smoking Tobacco: Former Cigarettes Q uit: 06/17/1990 Smokeless Tobacco: Never Tobacco Cessation:Counseling Given: Not Answered Comments Unknown Sex and Gender Information Value Date Recorded Sex Assigned at Not on file 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 AP: MICHELLE Report ID: [id number] Reading Location: [id number] Procedure Note Jose Shahid, DO - 07/26/2024 [...] Jose Shahid D.O. AP: MICHELLE Report ID: [id number] Reading Location: [place] [address] Destiny Crane PROJECT MANAGER IMG MRI PROCEDURES Fi nal Result from Last 3 Months Insurance [facility] MEDICARE ADVANTAGE [facility] MEDICARE ADVANTAGE Care Teams Survey Worker Relationship Specialty Start Date End Date Nic Solorio DO PCP - General Internal Medicine 02/25/18
--- OUTSIDE RECORDS SUMMARY | 2024-08-07 14:06 | XMS_ITS | Continuity of Care Document ---
Author Organization [facility] Address [address] [place] [address] [place] [address] Phone Care Team Providers Care Bead Forming Machine Set Up Operator Name Role Phone [facility] Unavailable Unavail able Nathanael, Raquel Unavailable Unavailable Advance Directives Directive Yes / No Effective Date File Name No Information Encounters Encounter Description Practice Location Reason(s) For Visit Diagnoses Date Provider Providers Copied on Encounter [facility], [address], [place], [place], [id number], [place] tel:[phone] [facility] No Information Dec-3 0-200 2 [facility], [address], [place], [place], [id number] , [place]. tel:[phone] Consulting Provider: Raquel Huffman, [address] [place] [address], [address]. tel:[phone] Family History Family Member Type Diagnosis Age At Onset No Information Payers Payer name Insurance type Covered democrat ID Authoriza tion(s) No Information Social History [...]
--- OUTSIDE RECORDS SUMMARY | 2024-08-07 14:06 | XMS_ITS | Clinical Summary ---
Author Organization [facility] Address [address] [place] [id number] Care Team Providers Care Immunohematologist Name Role Phone Unavailable Primary Care Provider Unavailabl e Social History Tobacco Use Types Packs/Day Years Used Date Smoking Tobacco: Never Assessed Comments Unknown Sex and Gender Information Value Date Recorded Sex Assigned at Not on file Legal Sex Female 10:23 PM YAM CURER Gender Identity Not on file Sexual Orientation [...]
--- OUTSIDE RECORDS SUMMARY | 2024-08-07 14:06 | XMS_ITS | Encounter Summary ---
Author Organization [facility] Healthcare Address [address] [place] [address] Care Team Providers Care Director Of Anesthesia Services Name Role Phone Nic Solorio DO Primary Care Provider [phone] Reason for Visit * Diagnostic Imaging (Routine) - Closed Specialty Diagnoses / Procedures Referred By Arnolac t Referred To Contact Diagnoses Toe infection Injury of left toe, initial encounter Procedures XR Toe Left 2 or More Views Jessica Alvarado, FIRMWARE ARCHITECT [address] [place] [id number] Phone: tel: fax: [facility] Referral ID Status Reason Start Date Expiration Date Visits Re quested Visits Authorized [id number] Closed 08/06/2024 09/05/2025 1 1 Encounter Details Date Type Department Care Team (Late st Contact Info) Description 08/07/2024 10:35 AM CDT Ancillary Procedure [facility] Imaging at [address] [id number] Arrived Social History Tobacco Use Types Packs/Day Years Used Date Smoking Tobacco: Former Cigarettes Q uit: 06/17/1990 Smokeless Tobacco: Never Comments Unknown Sex and Gender Information Value Date Recorded Sex Assigned at Not on file 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 Gender Identity Not on file Sexual Orientation Not on file documented as of this encounter Plan of Treatment Pending Results Name Type Priority Associated Diagnoses Date /Time XR Toe Left 2 or More Views Imaging Schedule ANGI, Read ANGI (Appt Today, Awaiting Results) Toe infection Injury of left toe, initial encounter 08/07/2024 10:46 AM CDT documented as of this encounter Visit Diagnoses Not on filedocumented in this encounter Care Teams Director Of Anesthesia Services Relationship Specialty Start Date End Date Nic Solorio DO PCP - General Internal Medicine 02/25/18 documented as of this encounter
[2024-08-07 18:42] LABS: Add Urine Microscopic? YES; Appearance Urine Cloudy (Clear); Bacteria Urine None Seen /hpf; Bilirubin Urine Negative (Negative); Blood Urine Trace (Negative); Color Urine Yellow (Yellow); Glucose Urine UA Negative (Negative); Ketones Urine Negative (Negative); Leukocyte Esterase Ur 3+ LEU/UL (Negative); Nitrate Urine Negative (Negative); Non Pathogenic Casts 0-2; Protein Urine 1+ mg/dL (Negative); RBC Urine 0-2 /hpf (0-2); Specific Grav Ur 1.021 (1.001-1.035); Squamous Epithelial Cell Urine Occasional /hpf (Few); Urobilinogen Urine 0.2 mg/dL (<2.0); WBC Urine >100 /hpf (0-3); pH Urine 5.5 (5.0-9.0)
== END 2024-08-07 13:50 | disposition home or self-care (01) ==
LOC: ANHGOSHLAB 13:49
PROVIDERS: PCP Internal Medicine; Visit Provider Nurse Practitioner
DX: R39.9 Unspecified symptoms and signs involving the genitourinary system (principal); N39.0 Urinary tract infection, site not specified
CPT/HCPCS: 81001; 87086